=== PATIENT | female | born 1950 | race Caucasian/White ===

== ENCOUNTER 2018-03-02 20:08 | Inpatient (IN) | payer MEDICARE ==
[~2018-03-02] VITALS: Ht 167.6 cm; Wt 62.6 kg
[~2018-03-02 20:08] MED LIST: ACET325T9 PO; APIX5TAB PO; BACL10TA PO; BISA-42 PO; BUPR150T8 PO; CITA40TA12 PO; CYCL10TA2 PO; DIAZ5TAB4 PO; DICY10CA53 PO; DOCU-109 PO; ESTR0.9T PO; FLUO40CA2 PO; GABA-586 PO; HYDR-2679 PO; HYDR-2762 PO; HYDR12.53 PO; IRON200V IV; LEVO750T31 PO; LISI10TA2 PO; LUBI8CAP4 PO; MAGN400O7 PO; MELO7.5T29 PO; OMEP40CA5 PO; OXYC-323 PO; POLY17PO29 PO; Polyethylene Glycol 3350 PO; QUIN40TA16 PO; TIOT18CA IH; TOPI25TA7 PO; TRAM-48 PO; TRAM50TA PO
[2018-03-02] MEDS ORDERED: FAMOTIDINE 20 MG/2 ML VIAL IVP ONE (20:30)
[2018-03-02] MEDS ORDERED: ONDANSETRON PF 4 MG/2 ML VIAL. IV ONE (20:30)
[2018-03-02] MEDS ORDERED: IV NORMAL SALINE 1000ML BAG 1,000 ML IV ONE (20:30)
[2018-03-02] MEDS ORDERED: IOHEXOL 300 MG/ML 100ML VIAL. IV ONE (20:45)
[2018-03-02] MEDS ORDERED: fentaNYL PF VIAL 100 MCG/2 ML VIAL IV ONE (20:45)
[2018-03-02] MEDS ORDERED: IOHEXOL 240 MG/ML 50ML VIAL. PO ONE (20:45)
--- NOTE | 2018-03-02 20:49 | PHYS DOC ---
Past Medical History Past Medical History: Constipation, Fibromyalgia, Hypertension, Other Additional Past Medical Histor: chronic constipation, drug seeking behavior, CHRONIC PAIN Past Surgical History: Cholecystectomy, Hysterectomy, Other Additional Past Surgical Histo: neck Smokin Pack Per Day Alcohol Use: None Drug Use: None Adult General Chief Complaint Chief Complaint: ABDOMINAL PAIN HPI HPI Patient is a 67 year old female who presents with recurrent abdominal pain. She states she has had intermittent abdominal pain for months. She states the pain is throbbing and she rates the pain as a 9/10 currently. It is worst in the LUQ. She states the pain occasionally radiates to her back. She states nothing makes her pain better or worse. She has tried to take ibuprofen and Tylenol to help with her pain. She endorses nausea, constipation, and increased urinary frequency for the past 3-4 days. She denies diarrhea, vomiting, fever, or chills. She also notes she has not eaten anything in 4 days. She notes that she has been seen in the ED several times for her abdominal pain. Per nurse, her son had mentioned that she has recently been "showing some signs of dementia". Review of Systems Review of Systems Constitutional: Denies fever or chills Eyes: Denies change in visual acuity, redness, or eye pain HENT: Denies nasal congestion or sore throat Respiratory: Denies cough or shortness of breath Cardiovascular: Denies chest pain or palpitations GI: Notes abdominal pain, nausea, and constipation; Denies vomiting or diarrhea : Denies dysuria or hematuria Musculoskeletal: Denies back pain or joint pain Integument: Denies rash or skin lesions Neurologic: Denies headache, focal weakness or sensory changes Complete systems were reviewed and found to be within normal limits, except as documented in this note. Family History Family History Noncontributory Current Medications Current Medications Current Medications Medications (Trade) Dose Ordered Sig/Ciera Start Time Stop Time Status Last Admin Dose Admin Famotidine (Pepcid Vial) 20 mg 1X ONCE 03/02/18 20:30 03/02/18 20:31 DC 03/02/18 21:17 20 MG Fentanyl Citrate (Fentanyl 2ml Vial) 50 mcg 1X ONCE 03/02/18 20:45 03/02/18 20:46 DC 03/02/18 21:16 50 MCG Iohexol (Omnipaque 240 Mg/ml) 30 ml 1X ONCE 03/02/18 20:45 03/02/18 20:50 DC 03/02/18 20:45 30 ML Iohexol (Omnipaque 300 Mg/ml) 75 ml 1X ONCE 03/02/18 20:45 03/02/18 20:50 DC 03/02/18 20:45 75 ML Ondansetron HCl (Zofran) 4 mg 1X ONCE 03/02/18 20:30 03/02/18 20:31 DC 03/02/18 21:17 4 MG Sodium Chloride 1,000 ml @ 1,000 mls/hr 1X ONCE 03/02/18 20:30 03/02/18 21:29 DC 03/02/18 21:17 1,000 MLS/HR Tramadol Allergies Allergies Allergies Coded Allergies Type Severity Reaction Last Updated Verified Penicillins Allergy Intermediate Hives 01/14/15 Yes Physical Exam Physical Exam Constitutional: Well developed, well nourished. HENT: Normocephalic, atraumatic,oropharynx dry Eyes: Conjunctiva normal, no discharge Neck: Normal range of motion, no tenderness, supple. Cardiovascular: Heart rate regular rhythm, no murmur Lungs & Thorax: Bilateral breath sounds clear to auscultation Abdomen: Soft, tenderness to palpation diffusely, particularly in the LUQ Skin: Warm, dry, no erythema, no rash Back: No tenderness, no CVA tenderness Extremities: No tenderness, ROM intact, no edema Neurologic: Alert and oriented X 3, normal motor function, normal sensory function, no focal deficits noted Psychologic: Affect normal, judgement normal, mood normal Current Patient Data Vital Signs Vital Signs Date Time Temp Pulse Resp B/P (MAP) Pulse Ox O2 Delivery O2 Flow Rate FiO2 03/02/18 20:10 98.2 104 18 126/68 (87) 94 Room Air 98.2 Lab Values Laboratory Tests Test 03/02/18 21:00 03/02/18 23:59 White Blood Count 22.9 x10^3/uL (4.0-11.0) H Red Blood Count 4.13 x10^6/uL (3.50-5.40) Hemoglobin 11.0 g/dL (12.0-15.5) L Hematocrit 32.7 % (36.0-47.0) L Mean Corpuscular Volume 79 fL (79-100) Mean Corpuscular Hemoglobin 27 pg (25-35) Mean Corpuscular Hemoglobin Concent 34 g/dL (31-37) Red Cell Distribution Width 21.0 % (11.5-14.5) H Platelet Count 500 x10^3/uL (140-400) H Neutrophils (%) (Auto) 86 % (31-73) H Lymphocytes (%) (Auto) 7 % (24-48) L Monocytes (%) (Auto) 7 % (0-9) Eosinophils (%) (Auto) 0 % (0-3) Basophils (%) (Auto) 0 % (0-3) Neutrophils # (Auto) 19.7 x10^3uL (1.8-7.7) H Lymphocytes # (Auto) 1.6 x10^3/uL (1.0-4.8) Monocytes # (Auto) 1.6 x10^3/uL (0.0-1.1) H Eosinophils # (Auto) 0.1 x10^3/uL (0.0-0.7) Basophils # (Auto) 0.0 x10^3/uL (0.0-0.2) Segmented Neutrophils % 89 % (35-66) H Band Neutrophils % 5 % (0-9) Lymphocytes % 2 % (24-48) L Monocytes % 4 % (0-10) Hypersegmented Neutrophils Present Toxic Granulation Slight Dohle Bodies Present Platelet Estimate Increased (ADEQUATE) Poikilocytosis Slight Anisocytosis Slight Ovalocytes Few Schistocytes Few Prothrombin Time 17.7 SEC (11.7-14.0) H Prothrombin Time INR 1.5 (0.8-1.1) H PTT 39 SEC (24-38) H Sodium Level 128 mmol/L (136-145) L Potassium Level 4.3 mmol/L (3.5-5.1) Chloride Level 94 mmol/L (98-107) L Carbon Dioxide Level 21 mmol/L (21-32) Anion Gap 13 (6-14) Blood Urea Nitrogen 26 mg/dL (7-20) H Creatinine 0.9 mg/dL (0.6-1.0) Estimated GFR (Cockcroft-Gault) 62.5 BUN/Creatinine Ratio 29 (6-20) H Glucose Level 92 mg/dL (70-99) Lactic Acid Level 0.9 mmol/L (0.4-2.0) Calcium Level 10.7 mg/dL (8.5-10.1) H Magnesium Level 1.9 mg/dL (1.8-2.4) Total Bilirubin 0.3 mg/dL (0.2-1.0) Aspartate Amino Transferase (AST) 34 U/L (15-37) Alanine Aminotransferase (ALT) 47 U/L (14-59) Alkaline Phosphatase 158 U/L (46-116) H Creatine Kinase 220 U/L (26-192) H Troponin I Quantitative < 0.017 ng/mL (0.000-0.055) Total Protein 6.3 g/dL (6.4-8.2) L Albumin 3.0 g/dL (3.4-5.0) L Albumin/Globulin Ratio 0.9 (1.0-1.7) L Lipase 318 U/L (73-393) Urine Collection Type U cath Urine Color Yellow Urine Clarity Clear Urine pH 6.0 Urine Specific [place] 1.025 Urine Protein Negative mg/dL (NEG-TRACE) Urine Glucose (UA) Negative mg/dL (NEG) Urine Ketones (Stick) Negative mg/dL (NEG) Urine Blood Negative (NEG) Urine Nitrite Negative (NEG) Urine Bilirubin Negative (NEG) Urine Urobilinogen Dipstick 0.2 mg/dL (0.2 mg/dL) Urine Leukocyte Esterase Negative (NEG) Urine RBC 0 /HPF (0-2) Urine WBC Occ /HPF (0-4) Urine Squamous Epithelial Cells Few /LPF Urine Bacteria 0 /HPF (0-FEW) Laboratory Tests 03/02/18 21:00 Laboratory Tests 03/02/18 21:00 EKG EKG @ 20:40, normal sinus rhythm at 92bpm, QRS(T) contour abnormality, consistent with inferior infarct, probably old Radiology/Procedures Radiology/Procedures CT abdomen and pelvis with contrast: no acute abnormality seen Course & Med Decision Making Course & Med Decision Making Patient is a 67 year old female who presents with recurrent abdominal pain. She has been seen in the ED for similar complaints at various different times. Per [email or web address], the last CT of the abdomen/pelvis she received was in March 2015, which showed an ileus. Pertinent labs and imaging studies were obtained and reviewed (see chart for details). CT of the abdomen/pelvis with contrast was obtained today and showed no acute abnormalities. A 12-lead EKG @ 20:40 showed normal sinus rhythm at 92bpm with QRS(T) contour abnormality, consistent with inferior infarct, probably old. Several of her lab values were abnormal. She was hyponatremic, hypochloremic. BUN and calcium were high, along with her alkaline phosphatase and her creatine kinase. Her WBC was elevated at 22.9. Patient rated her abdominal pain as a 9/10. She was given one dose of Fentanyl to help control her pain. Patient will be admitted for her abdominal pain, leukocytosis, hyponatremia, failure to thrive, and dementia. Patient requiring admission for further evaluation and treatment. Discussed with Dr. Burroughs who is in agreement with admission. Discussed findings and plan with patient who acknowledges understanding and agreement. Dragon Disclaimer Dragon Disclaimer This electronic medical record was generated, in whole or in part, using a voice recognition dictation system. Departure Departure Impression: Primary Impression: Abdominal pain Additional Impressions: Leukocytosis Hyponatremia Failure to thrive Disposition: ADMITTED INPATIENT Admitting Physician: Jose De Jesus Mittal Condition: GUARDED Referrals: UNKNOWN PCP NAME (PCP) Problem Qualifiers Primary Impression: Abdominal pain Abdominal location: generalized Qualified Codes: R10.84 - Generalized abdominal pain Additional Impressions: Leukocytosis Leukocytosis type: unspecified Qualified Codes: D72.829 - Elevated white blood cell count, unspecified Failure to thrive Failure to thrive age range: in adult Qualified Codes: R62.7 - Adult failure to thrive LUIS GALVEZ DO Mar 02, 2018 20:49
[2018-03-02 21:22] LABS: BASO % 0 % (0-3); EOS # 0.1 x10^3/uL (0.0-0.7); EOS % 0 % (0-3); HEMATOCRIT 32.7 % (36.0-47.0); LYMPH # 1.6 x10^3/uL (1.0-4.8); LYMPH % 7 % (24-48); MEAN CORPUSCULAR HEMOGLOBIN 27 pg (25-35); MEAN CORPUSCULAR HGB CONC 34 g/dL (31-37); MEAN CORPUSCULAR VOLUME 79 fL (79-100); MONO # 1.6 x10^3/uL (0.0-1.1); MONO % 7 % (0-9); NEUT # 19.7 x10^3uL (1.8-7.7); NEUT % 86 % (31-73); PLATELET COUNT 500 x10^3/uL (140-400); RED BLOOD COUNT 4.13 x10^6/uL (3.50-5.40); WHITE BLOOD COUNT 22.9 x10^3/uL (4.0-11.0)
[2018-03-02 21:31] LABS: CALCIUM 10.7 mg/dL (8.5-10.1); CREATININE 0.9 mg/dL (0.6-1.0); GFR 62.5; POTASSIUM 4.3 mmol/L (3.5-5.1); PROTHROMBIN TIME PATIENT 17.7 SEC (11.7-14.0)
[2018-03-02 21:37] LABS: ALBUMIN/GLOBULIN RATIO 0.9 (1.0-1.7); MAGNESIUM 1.9 mg/dL (1.8-2.4); TOTAL BILIRUBIN 0.3 mg/dL (0.2-1.0); TOTAL PROTEIN 6.3 g/dL (6.4-8.2)
[2018-03-02 21:48] LABS: % BANDS 5 % (0-9); % MONOS 4 % (0-10); ANISOCYTOSIS SLIGHT; HYPERSEGS PRESENT; PLT ESTIMATE INCREASED (ADEQUATE); POIKILOCYTOSIS SLIGHT
[2018-03-02 21:49] LABS: OVALOCYTES FEW; SCHISTOCYTES FEW
[2018-03-02 21:51] LABS: TOXIC GRANULATION SLIGHT
[2018-03-02 21:53] LABS: % LYMPHS 2 % (24-48); % SEGS 89 % (35-66)
--- NOTE | 2018-03-02 22:20 | RAD ---
CT scan of the abdomen and pelvis with contrast 03/02/2018 CLINICAL HISTORY: Left-sided abdominal pain. TECHNIQUE: After the oral and intravenous administration of contrast, contiguous, 5 mm axial sections were obtained through the abdomen and pelvis. 75 cc of Omnipaque 300 were administered intravenously during this examination. One or more of the following individualized dose reduction techniques were utilized for this study: 1. Automated exposure control. 2. Adjustment of the mA and/or kV according to patient size. 3. Use of iterative reconstruction technique. FINDINGS: Comparison study is dated 04/03/2015. Images through the lung bases demonstrate mild cardiomegaly. Dependent subsegmental atelectasis is seen involving both lower lobes, right greater than left along with the right middle lobe. The liver, spleen, pancreas, adrenal glands and kidneys are within normal limits. Atherosclerotic calcification of the abdominal aorta is seen. The abdominal aorta tapers normally. Surgical clips are seen within the gallbladder fossa consistent with a cholecystectomy. No free fluid or free air is seen within the abdomen. There is no evidence of bowel obstruction. Images through the pelvis demonstrate the urinary bladder distended with urine. Calcifications are seen within the pelvis consistent with phleboliths. No free fluid is seen. Mild to moderate S-shaped curvature of the thoracolumbar spine is seen. Degenerative changes are seen involving the lower thoracic spine and both hips. IMPRESSION: No acute abnormality is seen. Electronically signed by: Toni De La Cruz MD (03/02/2018 10:17 PM) [employer]
[2018-03-03 00:16] LABS: BILIRUBIN,URINE NEGATIVE (NEG); CLARITY,URINE CLEAR; COLOR,URINE YELLOW; NITRITE,URINE NEGATIVE (NEG); PROTEIN,URINE NEGATIVE (NEG-TRACE); UROBILINOGEN,URINE 0.2 mg/dL (0.2 mg/dL)
[2018-03-03 00:26] LABS: BACTERIA,URINE 0 /HPF (0-FEW); RBC,URINE 0 /HPF (0-2); SQUAMOUS EPITHELIAL CELL,UR FEW /LPF; WBC,URINE OCC /HPF (0-4)
[2018-03-03] MEDS ORDERED: ONDANSETRON PF 4 MG/2 ML VIAL. IV PRN ×2 (01:00→12:30)
[2018-03-03 02:05] VITALS: BP 154/88
[2018-03-03] MEDS ORDERED: MELA3TAB2 PO (05:45)
[2018-03-03] MEDS ORDERED: HYOS0.1264 PO (05:45)
[2018-03-03] MEDS ORDERED: LUBI24CA7 PO ×2 (05:45→18:15)
[2018-03-03] MEDS ORDERED: OXYC-328 PO (05:45)
[2018-03-03] MEDS ORDERED: ACET500T68 PO (05:45)
[2018-03-03] MEDS ORDERED: LIDO700A39 TP (05:45)
[2018-03-03] MEDS ORDERED: ALBU2.5V14 NEB (05:45)
[2018-03-03] MEDS ORDERED: METO25TA4 PO (05:45)
--- NOTE | 2018-03-03 06:17 | EKG ---
[facility] [address] [place] [address] Test Date: 2018-03-02 Test Time: 20:40:56 Pat Name: MATIAS ORTEZ Department: Room: [facility] Gender: F [employer] Work[employer]: : 1950 Requested By: LUIS GALVEZ Order Number: [id number] Reading MD: Marck Lozada Measurements Intervals [place] Rate: 92 P: 63 OK: 170 QRS: 30 QRSD: 86 T: 54 QT: 350 QTc: 437 Interpretive Statements SINUS RHYTHM Electronically Signed On 03-07-2018 10:28:45 CDT by Marck Lozada
[2018-03-03 07:00] VITALS: BP_SYST 123; BP_SYST 124; BP_DIAS 62; BP_DIAS 95
[2018-03-03 11:00] VITALS: BP 120/67
[2018-03-03] MEDS ORDERED: ACETAMINOPHEN 325 MG TABLET. PO PRN (12:30)
[2018-03-03] MEDS ORDERED: ENOXAPARIN 40 MG/0.4 ML SYRINGE. SQ SCH (12:30)
[2018-03-03] MEDS ORDERED: DOCUSATE SODIUM 100 MG CAPSULE. PO PRN (12:30)
[2018-03-03] MEDS ORDERED: ALBUTEROL SULFATE 2.5 MG/3 ML NEBU. NEB PRN (12:30)
[2018-03-03] MEDS ORDERED: traMADol 50 MG TABLET PO SCH (12:30)
[2018-03-03] MEDS ORDERED: MORPHINE SULFATE 2 MG/ML VIAL. IV PRN ×2 (12:30)
[2018-03-03] MEDS ORDERED: traMADol 50 MG TABLET PO PRN (12:30)
[2018-03-03] MEDS: traMADol 50 MG TABLET PO PRN ×2 (12:44→20:43)
[2018-03-03] MEDS: IPRATRPIUM/ALBUTEROL 0.5/2.5MG 3 ML NEBU. NEB SCH ×3 (13:00→19:35)
[2018-03-03] MEDS: IV NORMAL SALINE 1000ML BAG 1,000 ML IV SCH (13:49)
[2018-03-03] MEDS: APIXABAN 5 MG TABLET. PO SCH ×2 (13:50→20:42)
[2018-03-03] MEDS: GABAPENTIN 300 MG CAPSULE. PO SCH ×2 (13:50→20:42)
[2018-03-03] MEDS: CITALOPRAM 20 MG TABLET. PO SCH (13:50)
[2018-03-03] MEDS: METOPROLOL TART IMMED RELEASE 25 MG TABLET. PO SCH (13:51)
[2018-03-03] MEDS: LISINOPRIL 10 MG TABLET PO SCH (13:51)
[2018-03-03] MEDS: LIDOCAINE (700MG/PATCH) PATCH. TD SCH (13:52)
--- NOTE | 2018-03-03 14:30 | RAD ---
CT CHEST WO CONTRAST Indication: Left upper quadrant pain, high WBC, cough, left rib cage pain with tenderness Technique: Noncontrast CT imaging was performed of the chest, multiplanar reconstruction images submitted. One or more of the following individualized dose reduction techniques were utilized for this examination: 1. Automated exposure control 2. Adjustment of the mA and/or kV according to patient size 3. Use of iterative reconstruction technique. Comparison: May 26, 2017 Findings: There is right lower lobe infiltrate near the lung base, small right pleural effusion, also some patchy minimal infiltrate of the right middle lobe. There is a subtle focus of groundglass density of the left upper lobe. There is no left pleural effusion. There is no pneumothorax. There is now very minimal pericardial fluid. There are again multiple old bilateral rib fractures, some of which are not united. There is no new significant lymphadenopathy of the chest. There is coronary calcification. Ascending thoracic aorta is again slightly ectatic about 3.7 cm. There is emphysema. Thoracic vertebral body stature is preserved. There is anterior fusion hardware of the inferior cervical spine. IMPRESSION: 1. There is right lower lobe infiltrate at the lung base and small right pleural effusion, also some patchy minimal right middle lobe infiltrate and subtle groundglass infiltrate of the left upper lobe. 2. 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 3. There is emphysema. 4. There is coronary calcification. Electronically signed by: Artie Galo MD (03/03/2018 2:26 PM) [id number]
[2018-03-03 15:00] VITALS: BP 118/74
--- NOTE | 2018-03-03 15:08 | PDOC1 ---
History and Physical Date of Admission Date of Admission 03/03/18 Identification/Chief Complaint Chief Complaint abd pain, /rib cage pain Source Source: Chart review, Patient History of Present Illness History of Present Illness HPI HPI Patient is a 67 year old female who presents with recurrent abdominal pain for a few weeks. She is very drowsy, poor historian. nurse told me that she lost her 2 months ago and in pain and low po intake. Pt said she fell a few times before, but cannot tell me how and closed her eyes again. She said came to ER last week, but i cannot find the records. She pointed to the left flank for pain, + tender at rib cage. She took tramadol at home for pain. as per ERP, She endorses nausea, constipation, and increased urinary frequency for the past 3-4 days. She denies diarrhea, vomiting, fever, or chills. She also notes she has not eaten anything in 4 days. Per nurse, her son had mentioned that she has recently been "showing some signs of dementia". she is a smoker, cough in front of me, but said the cough is normal to her. no home o2. high wbc, low Na in ER. abd CT neg. Past Medical History Cardiovascular: HTN Pulmonary: COPD CENTRAL NERVOUS SYSTEM: Migraine GI: Constipation, Irritable bowel disease, Other Heme/Onc: Anemia NOS Psych: Anxiety, Depression Rheumatologic: Fibromyalgia Renal/: Other Endocrine: No pertinent hx Past Surgical History Past Surgical History: Cholecystectomy, Hysterectomy Family History Family History: Cancer, Coronary Artery Disease, Hypertension Social History Smoke: <1 pack per day ALCOHOL: none Drugs: None Current Problem List Problem List Problems Medical Problems: (1) Abdominal pain Status: Acute (2) Failure to thrive Status: Acute (3) Hyponatremia Status: Acute (4) Leukocytosis Status: Acute Current Medications Current Medications Current Medications Medications (Trade) Dose Ordered Sig/Ciera Start Time Stop Time Status Last Admin Dose Admin Acetaminophen (Tylenol) 650 mg PRN Q6HRS PRN 03/03/18 12:30 UNV Albuterol Sulfate (Ventolin Neb Soln) 2.5 mg PRN Q2HR PRN 03/03/18 12:30 Albuterol/ Ipratropium (Duoneb) 3 ml RTQID 03/03/18 13:00 Apixaban (Eliquis) 5 mg BID 03/03/18 13:00 03/03/18 13:50 5 MG Citalopram Hydrobromide (CeleXA) 40 mg DAILY 03/03/18 13:00 03/03/18 13:50 40 MG Docusate Sodium (Colace) 100 mg PRN DAILY PRN 03/03/18 12:30 Enoxaparin Sodium (Lovenox 40mg Syringe) 40 mg Q24H 03/03/18 12:30 UNV Famotidine (Pepcid Vial) 20 mg 1X ONCE 03/02/18 20:30 03/02/18 20:31 DC 03/02/18 21:17 20 MG Fentanyl Citrate (Fentanyl 2ml Vial) 50 mcg 1X ONCE 03/02/18 20:45 03/02/18 20:46 DC 03/02/18 21:16 50 MCG Gabapentin (Neurontin) 300 mg BID 03/03/18 13:00 03/03/18 13:50 300 MG Guaifenesin (Mucinex) 600 mg BID 03/03/18 13:00 03/03/18 13:50 600 MG Iohexol (Omnipaque 240 Mg/ml) 30 ml 1X ONCE 03/02/18 20:45 03/02/18 20:50 DC 03/02/18 20:45 30 ML Iohexol (Omnipaque 300 Mg/ml) 75 ml 1X ONCE 03/02/18 20:45 03/02/18 20:50 DC 03/02/18 20:45 75 ML Lidocaine (Lidoderm) 1 patch DAILY 03/03/18 13:00 03/03/18 13:52 1 PATCH Lisinopril (Prinivil) 10 mg DAILY 03/03/18 13:00 03/03/18 13:51 10 MG Lubiprostone (Amitiza) 24 mcg BIDWMEALS 03/03/18 17:00 Metoprolol Tartrate (Lopressor) 25 mg DAILY 03/03/18 13:00 03/03/18 13:51 25 MG Mirtazapine (Remeron) 7.5 mg QHS 03/03/18 21:00 Miscellaneous (Lidoderm Patch Removal) 1 ea QHS 03/03/18 21:00 Morphine Sulfate (Morphine Sulfate) 2 mg PRN Q2HR PRN 03/03/18 12:30 UNV Non-Formulary Medication (Melatonin ) 1 tab QHS 03/03/18 21:00 UNV Ondansetron HCl (Zofran) 4 mg PRN Q6HRS PRN 03/03/18 12:30 UNV Oxycodone/ Acetaminophen (Percocet 10/325) 1 tab BID PRN 03/03/18 12:30 Pantoprazole Sodium (Protonix) 40 mg BIDAC 03/03/18 16:30 Sodium Chloride 1,000 ml @ 100 mls/hr Q10H 03/03/18 13:00 03/03/18 13:49 100 MLS/HR Tramadol HCl (Ultram) 50 mg PRN Q6HRS PRN 03/03/18 12:30 03/03/18 12:44 50 MG Allergies Allergies Allergies Coded Allergies Type Severity Reaction Last Updated Verified Penicillins Allergy Intermediate Hives 01/14/15 Yes ROS Review of System CONSTITUTIONAL: No fever or chills EYES: No recent changes SKIN: No rash or itching CARDIOVASCULAR: No chest pain, syncope, palpitations, or edema RESPIRATORY: No SOB or cough GASTROINTESTINAL: No nausea, vomiting or abdominal pain NEUROLOGICAL: No headaches or weakness ENDOCRINE: No cold or heat intolerance GENITOURINARY: No urgency or frequency of urination MUSCULOSKELETAL: No back pain or joint pain LYMPHATICS: No enlarged lymph nodes PSYCHIATRIC: No anxiety or depression Physical Exam Physical Exam GEN.: No apparent distress. Alert and oriented x2, drowsy. HEENT: Head is normocephalic, atraumatic NECK: Supple. LUNGS: Clear to auscultation. left rib cage + tenderness. HEART: RRR, S1, S2 present. Peripheral pulses intact ABDOMEN: Soft, nontender. Positive bowel sounds. EXTREMITIES: Without any cyanosis. NEUROLOGIC: Normal speech, normal tone PSYCHIATRIC: Normal affect, normal mood. SKIN: No ulcerations Vitals Vitals Vital Signs Date Time Temp Pulse Resp B/P (MAP) Pulse Ox O2 Delivery O2 Flow Rate FiO2 03/03/18 13:52 18 Nasal Cannula 3.0 03/03/18 13:51 115 120/67 03/03/18 11:00 97.8 94 97.8 Labs Labs Laboratory Tests Test 03/02/18 21:00 03/02/18 23:59 White Blood Count 22.9 x10^3/uL (4.0-11.0) Red Blood Count 4.13 x10^6/uL (3.50-5.40) Hemoglobin 11.0 g/dL (12.0-15.5) Hematocrit 32.7 % (36.0-47.0) Mean Corpuscular Volume 79 fL (79-100) Mean Corpuscular Hemoglobin 27 pg (25-35) Mean Corpuscular Hemoglobin Concent 34 g/dL (31-37) Red Cell Distribution Width 21.0 % (11.5-14.5) Platelet Count 500 x10^3/uL (140-400) Neutrophils (%) (Auto) 86 % (31-73) Lymphocytes (%) (Auto) 7 % (24-48) Monocytes (%) (Auto) 7 % (0-9) Eosinophils (%) (Auto) 0 % (0-3) Basophils (%) (Auto) 0 % (0-3) Neutrophils # (Auto) 19.7 x10^3uL (1.8-7.7) Lymphocytes # (Auto) 1.6 x10^3/uL (1.0-4.8) Monocytes # (Auto) 1.6 x10^3/uL (0.0-1.1) Eosinophils # (Auto) 0.1 x10^3/uL (0.0-0.7) Basophils # (Auto) 0.0 x10^3/uL (0.0-0.2) Segmented Neutrophils % 89 % (35-66) Band Neutrophils % 5 % (0-9) Lymphocytes % 2 % (24-48) Monocytes % 4 % (0-10) Hypersegmented Neutrophils Present Toxic Granulation Slight Dohle Bodies Present Platelet Estimate Increased (ADEQUATE) Poikilocytosis Slight Anisocytosis Slight Ovalocytes Few Schistocytes Few Prothrombin Time 17.7 SEC (11.7-14.0) Prothromb Time International Ratio 1.5 (0.8-1.1) Activated Partial Thromboplast Time 39 SEC (24-38) Sodium Level 128 mmol/L (136-145) Potassium Level 4.3 mmol/L (3.5-5.1) Chloride Level 94 mmol/L (98-107) Carbon Dioxide Level 21 mmol/L (21-32) Anion Gap 13 (6-14) Blood Urea Nitrogen 26 mg/dL (7-20) Creatinine 0.9 mg/dL (0.6-1.0) Estimated GFR (Cockcroft-Gault) 62.5 BUN/Creatinine Ratio 29 (6-20) Glucose Level 92 mg/dL (70-99) Lactic Acid Level 0.9 mmol/L (0.4-2.0) Calcium Level 10.7 mg/dL (8.5-10.1) Magnesium Level 1.9 mg/dL (1.8-2.4) Total Bilirubin 0.3 mg/dL (0.2-1.0) Aspartate Amino Transf (AST/SGOT) 34 U/L (15-37) Alanine Aminotransferase (ALT/SGPT) 47 U/L (14-59) Alkaline Phosphatase 158 U/L (46-116) Creatine Kinase 220 U/L (26-192) Troponin I Quantitative < 0.017 ng/mL (0.000-0.055) Total Protein 6.3 g/dL (6.4-8.2) Albumin 3.0 g/dL (3.4-5.0) Albumin/Globulin Ratio 0.9 (1.0-1.7) Lipase 318 U/L (73-393) Urine Collection Type U cath Urine Color Yellow Urine Clarity Clear Urine pH 6.0 Urine Specific [place] 1.025 Urine Protein Negative mg/dL (NEG-TRACE) Urine Glucose (UA) Negative mg/dL (NEG) Urine Ketones (Stick) Negative mg/dL (NEG) Urine Blood Negative (NEG) Urine Nitrite Negative (NEG) Urine Bilirubin Negative (NEG) Urine Urobilinogen Dipstick 0.2 mg/dL (0.2 mg/dL) Urine Leukocyte Esterase Negative (NEG) Urine RBC 0 /HPF (0-2) Urine WBC Occ /HPF (0-4) Urine Squamous Epithelial Cells Few /LPF Urine Bacteria 0 /HPF (0-FEW) Laboratory Tests Test 03/02/18 21:00 03/02/18 23:59 White Blood Count 22.9 x10^3/uL (4.0-11.0) Red Blood Count 4.13 x10^6/uL (3.50-5.40) Hemoglobin 11.0 g/dL (12.0-15.5) Hematocrit 32.7 % (36.0-47.0) Mean Corpuscular Volume 79 fL (79-100) Mean Corpuscular Hemoglobin 27 pg (25-35) Mean Corpuscular Hemoglobin Concent 34 g/dL (31-37) Red Cell Distribution Width 21.0 % (11.5-14.5) Platelet Count 500 x10^3/uL (140-400) Neutrophils (%) (Auto) 86 % (31-73) Lymphocytes (%) (Auto) 7 % (24-48) Monocytes (%) (Auto) 7 % (0-9) Eosinophils (%) (Auto) 0 % (0-3) Basophils (%) (Auto) 0 % (0-3) Neutrophils # (Auto) 19.7 x10^3uL (1.8-7.7) Lymphocytes # (Auto) 1.6 x10^3/uL (1.0-4.8) Monocytes # (Auto) 1.6 x10^3/uL (0.0-1.1) Eosinophils # (Auto) 0.1 x10^3/uL (0.0-0.7) Basophils # (Auto) 0.0 x10^3/uL (0.0-0.2) Segmented Neutrophils % 89 % (35-66) Band Neutrophils % 5 % (0-9) Lymphocytes % 2 % (24-48) Monocytes % 4 % (0-10) Hypersegmented Neutrophils Present Toxic Granulation Slight Dohle Bodies Present Platelet Estimate Increased (ADEQUATE) Poikilocytosis Slight Anisocytosis Slight Ovalocytes Few Schistocytes Few Prothrombin Time 17.7 SEC (11.7-14.0) Prothromb Time International Ratio 1.5 (0.8-1.1) Activated Partial Thromboplast Time 39 SEC (24-38) Sodium Level 128 mmol/L (136-145) Potassium Level 4.3 mmol/L (3.5-5.1) Chloride Level 94 mmol/L (98-107) Carbon Dioxide Level 21 mmol/L (21-32) Anion Gap 13 (6-14) Blood Urea Nitrogen 26 mg/dL (7-20) Creatinine 0.9 mg/dL (0.6-1.0) Estimated GFR (Cockcroft-Gault) 62.5 BUN/Creatinine Ratio 29 (6-20) Glucose Level 92 mg/dL (70-99) Lactic Acid Level 0.9 mmol/L (0.4-2.0) Calcium Level 10.7 mg/dL (8.5-10.1) Magnesium Level 1.9 mg/dL (1.8-2.4) Total Bilirubin 0.3 mg/dL (0.2-1.0) Aspartate Amino Transf (AST/SGOT) 34 U/L (15-37) Alanine Aminotransferase (ALT/SGPT) 47 U/L (14-59) Alkaline Phosphatase 158 U/L (46-116) Creatine Kinase 220 U/L (26-192) Troponin I Quantitative < 0.017 ng/mL (0.000-0.055) Total Protein 6.3 g/dL (6.4-8.2) Albumin 3.0 g/dL (3.4-5.0) Albumin/Globulin Ratio 0.9 (1.0-1.7) Lipase 318 U/L (73-393) Urine Collection Type U cath Urine Color Yellow Urine Clarity Clear Urine pH 6.0 Urine Specific [place] 1.025 Urine Protein Negative mg/dL (NEG-TRACE) Urine Glucose (UA) Negative mg/dL (NEG) Urine Ketones (Stick) Negative mg/dL (NEG) Urine Blood Negative (NEG) Urine Nitrite Negative (NEG) Urine Bilirubin Negative (NEG) Urine Urobilinogen Dipstick 0.2 mg/dL (0.2 mg/dL) Urine Leukocyte Esterase Negative (NEG) Urine RBC 0 /HPF (0-2) Urine WBC Occ /HPF (0-4) Urine Squamous Epithelial Cells Few /LPF Urine Bacteria 0 /HPF (0-FEW) VTE Prophylaxis Ordered VTE Prophylaxis Devices: Yes VTE Pharmacological Prophylaxi: No Assessment/Plan Assessment/Plan left rib cage pain with old fx likely AMS, metabolic encephalopathy likely unsteady gait with frequent fall chronic constipation cough hyponatremia failure to thrive leukocytosis POSsible CAP SIRS fibromyalgia htn Pfib on eliquis h/o drug seeking behavior chronic pain on tramadol mild malnutrition tobaccoism plan: pulm consult check Chest ct showed some infiltrate and unhealed fx cont some home meds, abd CT neg. pain control bcx add levaquin ivf nutrition consult PTOT cont eliquis for now duoneb, cough meds sw FOR POSSIBLE rehab [place] as needed JUNG CONNELL MD Mar 03, 2018 15:08
--- NOTE | 2018-03-03 16:08 | CONS ---
DATE OF CONSULTATION: PULMONARY CONSULTATION ATTENDING PHYSICIAN: Dr. Burroughs. REASON FOR CONSULTATION: Abnormal CT chest, pneumonia. HISTORY OF PRESENT ILLNESS: The patient is a 67-year-old female who has been a smoker for 30 years. She says she is normally on oxygen at 3.5 liters at home. She was brought into the hospital. She is somewhat drowsy. She had some abdominal pain and tenderness at the right ribcage. There was some nausea, constipation and increased urinary frequency for the last 3-4 days. There is no diarrhea, no vomiting, no fever, no chills. The patient has not been eating well. She underwent imaging studies and a CT chest was reviewed by me. The patient has evidence of right lower lobe pneumonia and a small tiny right pleural effusion. There are some patchy infiltrates in the right middle lobe as well and faint ground glass infiltrates in the left upper lobe. There are old bilateral posterior fractures. I have been asked to see her for further evaluation. She is currently requiring 2.5 liters of oxygen. PAST MEDICAL HISTORY: Significant for history of hypertension, history of COPD, history of chronic respiratory failure on home oxygen at 3.5 liters, history of irritable bowel syndrome, anemia, depression, fibromyalgia. PAST SURGICAL HISTORY: Cholecystectomy and hysterectomy. FAMILY HISTORY: Cancer, coronary artery disease and hypertension. SOCIAL HISTORY: Smoker for last 30 years, less than 1 pack per day. ALLERGIES: PENICILLIN. CURRENT MEDICATIONS: Reviewed as listed in the [facility]. She is not on any antibiotics. REVIEW OF SYSTEMS: Twelve-point systems obtained. Pertinent positives discussed in my history of present illness, otherwise noncontributory. All systems that were negative were reviewed as well. PHYSICAL EXAMINATION: GENERAL: She is lethargic, but arousable and answers questions. VITAL SIGNS: Blood pressure stable, pulse ox 94% on 3 liters. She is afebrile. HEENT: Sclerae nonicteric. NECK: Supple. LUNGS: Diminished breath sounds. CARDIOVASCULAR: Regular rate. ABDOMEN: Soft, mildly tender. EXTREMITIES: With no pitting edema. LABORATORY DATA: Reviewed. White cell count 22.9, hemoglobin 11.0, platelets are 500. BUN 26 and creatinine 0.9. Albumin 3.0. INR 1.5. IMPRESSION: 1. Abnormal CT chest consistent with pneumonia. 2. Cough with yellow sputum production and CT chest findings compatible with pneumonia, suspect gram-negative. 3. Underlying chronic obstructive pulmonary disease, which is with chronic hypoxic respiratory failure, on home oxygen at 3.5 liters, was currently on 2.5 liters. 4. Abdominal pain per PCP. RECOMMENDATIONS: 1. We will continue with Levaquin. 2. Continue bronchodilators. 3. Continue present oxygen. 4. Anticoagulation with Eliquis per PCP. 5. We will obtain chest x-ray in few days just to see clinical and radiographic improvement. BATOOL BABCOCK MD DR: ABIGAIL/miya JOB#: [id number] / [id number]
[2018-03-03] MEDS: PANTOPRAZOLE 40 MG TABLET.DR. PO SCH (16:25)
[2018-03-03] MEDS: LUBIPROSTONE 8 MCG CAPSULE PO SCH (17:46)
[2018-03-03] MEDS: oxyCODONE/APAP 10/325 1 TAB TABLET PO PRN (17:47)
[2018-03-03] MEDS ORDERED: MAG360OR24 PO (18:12)
[2018-03-03] MEDS ORDERED: CYAN10002 IM (18:15)
[2018-03-03] MEDS ORDERED: DILT360C PO (18:15)
[2018-03-03] MEDS ORDERED: CYAN10005 PO (18:15)
[2018-03-03] MEDS ORDERED: MIRT15TA3 PO (18:18)
[2018-03-03] MEDS ORDERED: MAGN2400 PO (18:18)
[2018-03-03] MEDS ORDERED: SENN8.6T99 PO (18:18)
[2018-03-03 19:00] VITALS: BP 118/72
[2018-03-03] MEDS: LACTOBACILLUS RHAMNOSUS GG 1 CAPSULE. PO SCH (20:42)
[2018-03-03] MEDS: MIRTAZAPINE 7.5 MG TABLET. PO SCH (20:42)
[2018-03-03] MEDS: PATCH REMOVAL. MC SCH (21:00)
[2018-03-03] MEDS ORDERED: NON FORMULARY ITEM (Melatonin 1 TAB) PO SCH (21:00)
[2018-03-03 23:00] VITALS: BP 136/72
[2018-03-04 03:00] VITALS: BP 149/59
[2018-03-04] MEDS: IV NORMAL SALINE 1000ML BAG 1,000 ML IV SCH ×3 (03:42→19:00)
[2018-03-04] MEDS: oxyCODONE/APAP 10/325 1 TAB TABLET PO PRN ×4 (03:43→21:01)
[2018-03-04 05:07] LABS: BASO % 0 % (0-3); EOS # 0.1 x10^3/uL (0.0-0.7); EOS % 1 % (0-3); HEMATOCRIT 28.7 % (36.0-47.0); HEMOGLOBIN 9.6 g/dL (12.0-15.5); LYMPH # 2.1 x10^3/uL (1.0-4.8); LYMPH % 10 % (24-48); MEAN CORPUSCULAR HEMOGLOBIN 26 pg (25-35); MEAN CORPUSCULAR HGB CONC 33 g/dL (31-37); MEAN CORPUSCULAR VOLUME 79 fL (79-100); MONO # 2.2 x10^3/uL (0.0-1.1); MONO % 10 % (0-9); NEUT # 17.5 x10^3uL (1.8-7.7); NEUT % 79 % (31-73); PLATELET COUNT 464 x10^3/uL (140-400); RED BLOOD COUNT 3.63 x10^6/uL (3.50-5.40); RED CELL DISTRIBUTION WIDTH 20.9 % (11.5-14.5)
[2018-03-04 05:56] LABS: CALCIUM 8.7 mg/dL (8.5-10.1); CREATININE 0.5 mg/dL (0.6-1.0); GFR 123.1; POTASSIUM 3.6 mmol/L (3.5-5.1)
[2018-03-04] MEDS: PANTOPRAZOLE 40 MG TABLET.DR. PO SCH ×2 (06:35→16:33)
[2018-03-04 07:00] VITALS: BP 141/71
[2018-03-04] MEDS: IPRATRPIUM/ALBUTEROL 0.5/2.5MG 3 ML NEBU. NEB SCH ×4 (07:09→20:09)
[2018-03-04] MEDS ORDERED: PHENOL ORAL SPRAY 177ML BOTTLE. PO PRN (09:15)
--- NOTE | 2018-03-04 09:24 | PDOC ---
PULMONARY PROGRESS NOTES Subjective more awake. c/o cough Vitals Vital Signs Date Time Temp Pulse Resp B/P (MAP) Pulse Ox O2 Delivery O2 Flow Rate FiO2 03/04/18 07:09 90 Nasal Cannula 2.0 03/04/18 07:00 98.8 106 16 141/71 (94) 98.8 General: Alert Lungs: Clear Cardiovascular: S1 Abdomen: Soft Neuro Exam: Alert Extremities: No Edema Skin: Warm Labs Laboratory Tests Test 03/02/18 21:00 03/02/18 23:59 03/04/18 04:05 White Blood Count 22.9 x10^3/uL (4.0-11.0) 22.0 x10^3/uL (4.0-11.0) Red Blood Count 4.13 x10^6/uL (3.50-5.40) 3.63 x10^6/uL (3.50-5.40) Hemoglobin 11.0 g/dL (12.0-15.5) 9.6 g/dL (12.0-15.5) Hematocrit 32.7 % (36.0-47.0) 28.7 % (36.0-47.0) Mean Corpuscular Volume 79 fL (79-100) 79 fL (79-100) Mean Corpuscular Hemoglobin 27 pg (25-35) 26 pg (25-35) Mean Corpuscular Hemoglobin Concent 34 g/dL (31-37) 33 g/dL (31-37) Red Cell Distribution Width 21.0 % (11.5-14.5) 20.9 % (11.5-14.5) Platelet Count 500 x10^3/uL (140-400) 464 x10^3/uL (140-400) Neutrophils (%) (Auto) 86 % (31-73) 79 % (31-73) Lymphocytes (%) (Auto) 7 % (24-48) 10 % (24-48) Monocytes (%) (Auto) 7 % (0-9) 10 % (0-9) Eosinophils (%) (Auto) 0 % (0-3) 1 % (0-3) Basophils (%) (Auto) 0 % (0-3) 0 % (0-3) Neutrophils # (Auto) 19.7 x10^3uL (1.8-7.7) 17.5 x10^3uL (1.8-7.7) Lymphocytes # (Auto) 1.6 x10^3/uL (1.0-4.8) 2.1 x10^3/uL (1.0-4.8) Monocytes # (Auto) 1.6 x10^3/uL (0.0-1.1) 2.2 x10^3/uL (0.0-1.1) Eosinophils # (Auto) 0.1 x10^3/uL (0.0-0.7) 0.1 x10^3/uL (0.0-0.7) Basophils # (Auto) 0.0 x10^3/uL (0.0-0.2) 0.0 x10^3/uL (0.0-0.2) Segmented Neutrophils % 89 % (35-66) Band Neutrophils % 5 % (0-9) Lymphocytes % 2 % (24-48) Monocytes % 4 % (0-10) Hypersegmented Neutrophils Present Toxic Granulation Slight Dohle Bodies Present Platelet Estimate Increased (ADEQUATE) Poikilocytosis Slight Anisocytosis Slight Ovalocytes Few Schistocytes Few Prothrombin Time 17.7 SEC (11.7-14.0) Prothromb Time International Ratio 1.5 (0.8-1.1) Activated Partial Thromboplast Time 39 SEC (24-38) Sodium Level 128 mmol/L (136-145) 129 mmol/L (136-145) Potassium Level 4.3 mmol/L (3.5-5.1) 3.6 mmol/L (3.5-5.1) Chloride Level 94 mmol/L (98-107) 96 mmol/L (98-107) Carbon Dioxide Level 21 mmol/L (21-32) 23 mmol/L (21-32) Anion Gap 13 (6-14) 10 (6-14) Blood Urea Nitrogen 26 mg/dL (7-20) 6 mg/dL (7-20) Creatinine 0.9 mg/dL (0.6-1.0) 0.5 mg/dL (0.6-1.0) Estimated GFR (Cockcroft-Gault) 62.5 123.1 BUN/Creatinine Ratio 29 (6-20) Glucose Level 92 mg/dL (70-99) 95 mg/dL (70-99) Lactic Acid Level 0.9 mmol/L (0.4-2.0) Calcium Level 10.7 mg/dL (8.5-10.1) 8.7 mg/dL (8.5-10.1) Magnesium Level 1.9 mg/dL (1.8-2.4) Total Bilirubin 0.3 mg/dL (0.2-1.0) Aspartate Amino Transf (AST/SGOT) 34 U/L (15-37) Alanine Aminotransferase (ALT/SGPT) 47 U/L (14-59) Alkaline Phosphatase 158 U/L (46-116) Creatine Kinase 220 U/L (26-192) Troponin I Quantitative < 0.017 ng/mL (0.000-0.055) Total Protein 6.3 g/dL (6.4-8.2) Albumin 3.0 g/dL (3.4-5.0) Albumin/Globulin Ratio 0.9 (1.0-1.7) Lipase 318 U/L (73-393) Urine Collection Type U cath Urine Color Yellow Urine Clarity Clear Urine pH 6.0 Urine Specific Sidney 1.025 Urine Protein Negative mg/dL (NEG-TRACE) Urine Glucose (UA) Negative mg/dL (NEG) Urine Ketones (Stick) Negative mg/dL (NEG) Urine Blood Negative (NEG) Urine Nitrite Negative (NEG) Urine Bilirubin Negative (NEG) Urine Urobilinogen Dipstick 0.2 mg/dL (0.2 mg/dL) Urine Leukocyte Esterase Negative (NEG) Urine RBC 0 /HPF (0-2) Urine WBC Occ /HPF (0-4) Urine Squamous Epithelial Cells Few /LPF Urine Bacteria 0 /HPF (0-FEW) Laboratory Tests Test 03/04/18 04:05 White Blood Count 22.0 x10^3/uL (4.0-11.0) Red Blood Count 3.63 x10^6/uL (3.50-5.40) Hemoglobin 9.6 g/dL (12.0-15.5) Hematocrit 28.7 % (36.0-47.0) Mean Corpuscular Volume 79 fL (79-100) Mean Corpuscular Hemoglobin 26 pg (25-35) Mean Corpuscular Hemoglobin Concent 33 g/dL (31-37) Red Cell Distribution Width 20.9 % (11.5-14.5) Platelet Count 464 x10^3/uL (140-400) Neutrophils (%) (Auto) 79 % (31-73) Lymphocytes (%) (Auto) 10 % (24-48) Monocytes (%) (Auto) 10 % (0-9) Eosinophils (%) (Auto) 1 % (0-3) Basophils (%) (Auto) 0 % (0-3) Neutrophils # (Auto) 17.5 x10^3uL (1.8-7.7) Lymphocytes # (Auto) 2.1 x10^3/uL (1.0-4.8) Monocytes # (Auto) 2.2 x10^3/uL (0.0-1.1) Eosinophils # (Auto) 0.1 x10^3/uL (0.0-0.7) Basophils # (Auto) 0.0 x10^3/uL (0.0-0.2) Sodium Level 129 mmol/L (136-145) Potassium Level 3.6 mmol/L (3.5-5.1) Chloride Level 96 mmol/L (98-107) Carbon Dioxide Level 23 mmol/L (21-32) Anion Gap 10 (6-14) Blood Urea Nitrogen 6 mg/dL (7-20) Creatinine 0.5 mg/dL (0.6-1.0) Estimated GFR (Cockcroft-Gault) 123.1 Glucose Level 95 mg/dL (70-99) Calcium Level 8.7 mg/dL (8.5-10.1) Medications Active Scripts Medications Dose Route/Sig Max Daily Dose Days Date Category Dose Instructions Senokot (Sennosides) 8.6 Mg Tablet 1 Tab PO PRN BID 03/03/18 Reported Mirtazapine 15 Mg Tablet 7.5 Mg PO QHS 03/03/18 Reported Milk Of Magnesia (Magnesium Hydroxide) 2,400 Mg/10 Ml Oral.susp 2,400 Mg PO 03/03/18 Reported Cardizem Cd (Diltiazem Hcl) 360 Mg Cap.er.24h 300 Mg PO BID 03/03/18 Reported Cyanocobalamin Injection (Cyanocobalamin (Vitamin B-12)) 1,000 Mcg/1 Ml Vial 1 Ml IM QMONTH 03/03/18 Reported Vitamin B-12 (Cyanocobalamin (Vitamin B-12)) 1,000 Mcg Tablet 1 Tab PO DAILY 03/03/18 Reported Alum-Mag Hydroxide-Simeth Liq (Mag Hydrox/Al Hydrox/Simeth) 360 Ml Oral.susp 360 Ml PO 03/03/18 Reported Albuterol Sulfate Conc Neb Soln (Albuterol Sulfate) 2.5 Mg/0.5 Ml Vial.neb 1 Vial NEB Q6HRS 03/03/18 Reported Metoprolol Tartrate 25 Mg Tablet 1 Tab PO DAILY 03/03/18 Reported Melatonin 3 Mg Tablet 1 Tab PO QHS 03/03/18 Reported Lidocaine 1 Each Adh..patch 1 Each TP 03/03/18 Reported Levsin (Hyoscyamine Sulfate) 0.125 Mg Tablet 1 Tab PO TID PRN 03/03/18 Reported Percocet 10-325 Mg Tablet (Oxycodone/Acetaminophen) 1 Each Tablet 1 Tab PO BID PRN 03/03/18 Reported Amitiza (Lubiprostone) 24 Mcg Capsule 1 Cap PO BID 03/03/18 Reported Acetaminophen 500 Mg Tablet 2 Tab PO Q6HRS 03/03/18 Reported Lisinopril 10 Mg Tablet 1 Tab PO DAILY 05/30/17 Rx Eliquis (Apixaban) 5 Mg Tablet 5 Mg PO BID 05/26/17 Reported Gabapentin 300 Mg Capsule 300 Mg PO BID 05/26/17 Reported Tramadol Hcl 50 Mg Tablet 50 Tab PO PRN Q6HRS 02/09/15 Rx Celexa (Citalopram Hydrobromide) 40 Mg Tablet 40 Mg PO DAILY 09/26/14 Rx Omeprazole 40 Mg Capsule.dr 40 Mg PO BID 02/04/14 Reported LAST DOSE GIVEN: DATE: today we use Pantaprozole (Protonix) TIME: 8:30 AM NEXT DOSE DUE: DATE: tomorrow morning Impression . 1. Abnormal CT chest consistent with pneumonia. 2. Cough with yellow sputum production and CT chest findings compatible with pneumonia, suspect gram-negative. 3. Underlying chronic obstructive pulmonary disease, which is with chronic hypoxic respiratory failure, on home oxygen at 3.5 liters, was currently on 2.5 liters. 4. Abdominal pain per PCP. Plan . 1. We will continue with Levaquin. 2. Continue bronchodilators. 3. Continue present oxygen. 4. Anticoagulation with Eliquis per PCP. 5. We will obtain chest x-ray in few days just to see clinical and radiographic improvement. BATOOL BABCOCK MD Mar 04, 2018 09:24
[2018-03-04] MEDS: LUBIPROSTONE 8 MCG CAPSULE PO SCH ×2 (10:57→17:00)
[2018-03-04] MEDS: BENZOCAINE/MENTHOL LOZENGE. PO PRN ×3 (10:57→20:59)
[2018-03-04] MEDS: LISINOPRIL 10 MG TABLET PO SCH (10:58)
[2018-03-04] MEDS: LACTOBACILLUS RHAMNOSUS GG 1 CAPSULE. PO SCH ×2 (10:58→21:00)
[2018-03-04] MEDS: APIXABAN 5 MG TABLET. PO SCH ×2 (10:58→21:00)
[2018-03-04] MEDS: GABAPENTIN 300 MG CAPSULE. PO SCH ×2 (10:59→20:59)
[2018-03-04] MEDS: METOPROLOL TART IMMED RELEASE 25 MG TABLET. PO SCH (10:59)
[2018-03-04 11:00] VITALS: BP 122/79
[2018-03-04] MEDS: CITALOPRAM 20 MG TABLET. PO SCH (11:00)
[2018-03-04] MEDS: LIDOCAINE (700MG/PATCH) PATCH. TD SCH (11:01)
[2018-03-04] MEDS ORDERED: DILT360C PO (12:29)
--- NOTE | 2018-03-04 13:09 | PDOC ---
PROGRESS NOTES Chief Complaint Chief Complaint left rib cage pain with old fx likely AMS, metabolic encephalopathy likely CAP unsteady gait with frequent fall chronic constipation cough hyponatremia failure to thrive leukocytosis sepsis fibromyalgia htn Pfib on eliquis h/o drug seeking behavior chronic pain on tramadol mild malnutrition tobaccoism plan: pulm consulted check Chest ct showed some infiltrate and unhealed fx cont some home meds, abd CT neg. pain control bcx add levaquin ivf nutrition consult PTOT cont eliquis for now, resume metoprolol, cardizem. asked nurse to check the dose duoneb, cough meds sw FOR POSSIBLE rehab NS as needed History of Present Illness History of Present Illness ROS: no fever, chills, sob or chest pain COUGH A lot, c/o left rib cage pain with tenderness slightly better, but still looks very weak as per nurse, it could be pt's baseline wbc 22 Na 129 Vitals Vitals Vital Signs Date Time Temp Pulse Resp B/P (MAP) Pulse Ox O2 Delivery O2 Flow Rate FiO2 03/04/18 12:41 20 Nasal Cannula 3.0 03/04/18 12:40 97 122/79 03/04/18 11:00 99.2 99.2 03/04/18 07:09 90 Physical Exam Physical Exam left rib cage + tenderness General: Alert, Oriented X3, Cooperative Heart: Regular rate, Normal S1, Normal S2 Lungs: Other (bl moderate decreased bs) Abdomen: Normal bowel sounds, Soft Extremities: No clubbing, No cyanosis Skin: No rashes Labs LABS Laboratory Tests Test 03/04/18 04:05 White Blood Count 22.0 x10^3/uL (4.0-11.0) Red Blood Count 3.63 x10^6/uL (3.50-5.40) Hemoglobin 9.6 g/dL (12.0-15.5) Hematocrit 28.7 % (36.0-47.0) Mean Corpuscular Volume 79 fL (79-100) Mean Corpuscular Hemoglobin 26 pg (25-35) Mean Corpuscular Hemoglobin Concent 33 g/dL (31-37) Red Cell Distribution Width 20.9 % (11.5-14.5) Platelet Count 464 x10^3/uL (140-400) Neutrophils (%) (Auto) 79 % (31-73) Lymphocytes (%) (Auto) 10 % (24-48) Monocytes (%) (Auto) 10 % (0-9) Eosinophils (%) (Auto) 1 % (0-3) Basophils (%) (Auto) 0 % (0-3) Neutrophils # (Auto) 17.5 x10^3uL (1.8-7.7) Lymphocytes # (Auto) 2.1 x10^3/uL (1.0-4.8) Monocytes # (Auto) 2.2 x10^3/uL (0.0-1.1) Eosinophils # (Auto) 0.1 x10^3/uL (0.0-0.7) Basophils # (Auto) 0.0 x10^3/uL (0.0-0.2) Sodium Level 129 mmol/L (136-145) Potassium Level 3.6 mmol/L (3.5-5.1) Chloride Level 96 mmol/L (98-107) Carbon Dioxide Level 23 mmol/L (21-32) Anion Gap 10 (6-14) Blood Urea Nitrogen 6 mg/dL (7-20) Creatinine 0.5 mg/dL (0.6-1.0) Estimated GFR (Cockcroft-Gault) 123.1 Glucose Level 95 mg/dL (70-99) Calcium Level 8.7 mg/dL (8.5-10.1) Assessment and Plan Assessmemt and Plan Problems Medical Problems: (1) Abdominal pain Status: Acute (2) Failure to thrive Status: Acute (3) Hyponatremia Status: Acute (4) Leukocytosis Status: Acute Comment Review of Relevant I have reviewed the following items tracy (where applicable) has been applied. Labs Laboratory Tests Test 03/02/18 21:00 03/02/18 23:59 03/04/18 04:05 White Blood Count 22.9 x10^3/uL (4.0-11.0) 22.0 x10^3/uL (4.0-11.0) Red Blood Count 4.13 x10^6/uL (3.50-5.40) 3.63 x10^6/uL (3.50-5.40) Hemoglobin 11.0 g/dL (12.0-15.5) 9.6 g/dL (12.0-15.5) Hematocrit 32.7 % (36.0-47.0) 28.7 % (36.0-47.0) Mean Corpuscular Volume 79 fL (79-100) 79 fL (79-100) Mean Corpuscular Hemoglobin 27 pg (25-35) 26 pg (25-35) Mean Corpuscular Hemoglobin Concent 34 g/dL (31-37) 33 g/dL (31-37) Red Cell Distribution Width 21.0 % (11.5-14.5) 20.9 % (11.5-14.5) Platelet Count 500 x10^3/uL (140-400) 464 x10^3/uL (140-400) Neutrophils (%) (Auto) 86 % (31-73) 79 % (31-73) Lymphocytes (%) (Auto) 7 % (24-48) 10 % (24-48) Monocytes (%) (Auto) 7 % (0-9) 10 % (0-9) Eosinophils (%) (Auto) 0 % (0-3) 1 % (0-3) Basophils (%) (Auto) 0 % (0-3) 0 % (0-3) Neutrophils # (Auto) 19.7 x10^3uL (1.8-7.7) 17.5 x10^3uL (1.8-7.7) Lymphocytes # (Auto) 1.6 x10^3/uL (1.0-4.8) 2.1 x10^3/uL (1.0-4.8) Monocytes # (Auto) 1.6 x10^3/uL (0.0-1.1) 2.2 x10^3/uL (0.0-1.1) Eosinophils # (Auto) 0.1 x10^3/uL (0.0-0.7) 0.1 x10^3/uL (0.0-0.7) Basophils # (Auto) 0.0 x10^3/uL (0.0-0.2) 0.0 x10^3/uL (0.0-0.2) Segmented Neutrophils % 89 % (35-66) Band Neutrophils % 5 % (0-9) Lymphocytes % 2 % (24-48) Monocytes % 4 % (0-10) Hypersegmented Neutrophils Present Toxic Granulation Slight Dohle Bodies Present Platelet Estimate Increased (ADEQUATE) Poikilocytosis Slight Anisocytosis Slight Ovalocytes Few Schistocytes Few Prothrombin Time 17.7 SEC (11.7-14.0) Prothromb Time International Ratio 1.5 (0.8-1.1) Activated Partial Thromboplast Time 39 SEC (24-38) Sodium Level 128 mmol/L (136-145) 129 mmol/L (136-145) Potassium Level 4.3 mmol/L (3.5-5.1) 3.6 mmol/L (3.5-5.1) Chloride Level 94 mmol/L (98-107) 96 mmol/L (98-107) Carbon Dioxide Level 21 mmol/L (21-32) 23 mmol/L (21-32) Anion Gap 13 (6-14) 10 (6-14) Blood Urea Nitrogen 26 mg/dL (7-20) 6 mg/dL (7-20) Creatinine 0.9 mg/dL (0.6-1.0) 0.5 mg/dL (0.6-1.0) Estimated GFR (Cockcroft-Gault) 62.5 123.1 BUN/Creatinine Ratio 29 (6-20) Glucose Level 92 mg/dL (70-99) 95 mg/dL (70-99) Lactic Acid Level 0.9 mmol/L (0.4-2.0) Calcium Level 10.7 mg/dL (8.5-10.1) 8.7 mg/dL (8.5-10.1) Magnesium Level 1.9 mg/dL (1.8-2.4) Total Bilirubin 0.3 mg/dL (0.2-1.0) Aspartate Amino Transf (AST/SGOT) 34 U/L (15-37) Alanine Aminotransferase (ALT/SGPT) 47 U/L (14-59) Alkaline Phosphatase 158 U/L (46-116) Creatine Kinase 220 U/L (26-192) Troponin I Quantitative < 0.017 ng/mL (0.000-0.055) Total Protein 6.3 g/dL (6.4-8.2) Albumin 3.0 g/dL (3.4-5.0) Albumin/Globulin Ratio 0.9 (1.0-1.7) Lipase 318 U/L (73-393) Urine Collection Type U cath Urine Color Yellow Urine Clarity Clear Urine pH 6.0 Urine Specific [place] 1.025 Urine Protein Negative mg/dL (NEG-TRACE) Urine Glucose (UA) Negative mg/dL (NEG) Urine Ketones (Stick) Negative mg/dL (NEG) Urine Blood Negative (NEG) Urine Nitrite Negative (NEG) Urine Bilirubin Negative (NEG) Urine Urobilinogen Dipstick 0.2 mg/dL (0.2 mg/dL) Urine Leukocyte Esterase Negative (NEG) Urine RBC 0 /HPF (0-2) Urine WBC Occ /HPF (0-4) Urine Squamous Epithelial Cells Few /LPF Urine Bacteria 0 /HPF (0-FEW) Laboratory Tests Test 03/04/18 04:05 White Blood Count 22.0 x10^3/uL (4.0-11.0) Red Blood Count 3.63 x10^6/uL (3.50-5.40) Hemoglobin 9.6 g/dL (12.0-15.5) Hematocrit 28.7 % (36.0-47.0) Mean Corpuscular Volume 79 fL (79-100) Mean Corpuscular Hemoglobin 26 pg (25-35) Mean Corpuscular Hemoglobin Concent 33 g/dL (31-37) Red Cell Distribution Width 20.9 % (11.5-14.5) Platelet Count 464 x10^3/uL (140-400) Neutrophils (%) (Auto) 79 % (31-73) Lymphocytes (%) (Auto) 10 % (24-48) Monocytes (%) (Auto) 10 % (0-9) Eosinophils (%) (Auto) 1 % (0-3) Basophils (%) (Auto) 0 % (0-3) Neutrophils # (Auto) 17.5 x10^3uL (1.8-7.7) Lymphocytes # (Auto) 2.1 x10^3/uL (1.0-4.8) Monocytes # (Auto) 2.2 x10^3/uL (0.0-1.1) Eosinophils # (Auto) 0.1 x10^3/uL (0.0-0.7) Basophils # (Auto) 0.0 x10^3/uL (0.0-0.2) Sodium Level 129 mmol/L (136-145) Potassium Level 3.6 mmol/L (3.5-5.1) Chloride Level 96 mmol/L (98-107) Carbon Dioxide Level 23 mmol/L (21-32) Anion Gap 10 (6-14) Blood Urea Nitrogen 6 mg/dL (7-20) Creatinine 0.5 mg/dL (0.6-1.0) Estimated GFR (Cockcroft-Gault) 123.1 Glucose Level 95 mg/dL (70-99) Calcium Level 8.7 mg/dL (8.5-10.1) Medications Current Medications Ondansetron HCl (Zofran) 4 mg 1X ONCE IV Last administered on 03/02/18 21:17 ; Start 03/02/18 at 20:30; Stop 03/02/18 at 20:31; Status DC Famotidine (Pepcid Vial) 20 mg 1X ONCE IVP Last administered on 03/02/18at 21: 17; Start 03/02/18 at 20:30; Stop 03/02/18 at 20:31; Status DC Sodium Chloride 1,000 ml @ 1,000 mls/hr 1X ONCE IV Last administered on at 21:17; Start 03/02/18 at 20:30; Stop 03/02/18 at 21:29; Status DC Fentanyl Citrate (Fentanyl 2ml Vial) 50 mcg 1X ONCE IV Last administered on at 21:16; Start 03/02/18 at 20:45; Stop 03/02/18 at 20:46; Status DC Iohexol (Omnipaque 300 Mg/ml) 75 ml 1X ONCE IV Last administered on 03/02/18at 20:45; Start 03/02/18 at 20:45; Stop 03/02/18 at 20:50; Status DC Iohexol (Omnipaque 240 Mg/ml) 30 ml 1X ONCE PO Last administered on 03/02/18at 20:45; Start 03/02/18 at 20:45; Stop 03/02/18 at 20:50; Status DC Ondansetron HCl (Zofran) 4 mg PRN Q8HRS PRN IV NAUSEA/VOMITING; Start 03/03/18 at 01:00; Stop 03/03/18 at 17:08; Status DC Apixaban (Eliquis) 5 mg BID PO Last administered on 03/04/18at 10:58; Start at 13:00 Lisinopril (Prinivil) 10 mg DAILY PO Last administered on 03/04/18at 10:58; Start 03/03/18 at 13:00 Metoprolol Tartrate (Lopressor) 25 mg DAILY PO Last administered on 03/04/18at 10:59; Start 03/03/18 at 13:00 Oxycodone/ Acetaminophen (Percocet 10/325) 1 tab BID PRN PO SEVERE PAIN Last administered on 03/04/18at 12:41; Start 03/03/18 at 12:30 Tramadol HCl (Ultram) 2,500 mg PRN Q6HRS PO ; Start 03/03/18 at 12:30; Status UNV Citalopram Hydrobromide (CeleXA) 40 mg DAILY PO Last administered on 03/04/18at 11:00; Start 03/03/18 at 13:00 Gabapentin (Neurontin) 300 mg BID PO Last administered on 03/04/18at 10:59; Start 03/03/18 at 13:00 Lubiprostone (Amitiza) 24 mcg BIDWMEALS PO Last administered on 03/04/18at 10:57 ; Start 03/03/18 at 17:00 Non-Formulary Medication (Melatonin ) 1 tab QHS PO ; Start 03/03/18 at 21:00; Status UNV Pantoprazole Sodium (Protonix) 40 mg BIDAC PO Last administered on 03/04/18at 06 :35; Start 03/03/18 at 16:30 Acetaminophen (Tylenol) 650 mg PRN Q6HRS PRN PO FEVER; Start 03/03/18 at 12:30 Ondansetron HCl (Zofran) 4 mg PRN Q6HRS PRN IV NAUSEA/VOMITING; Start 03/03/18 at 12:30 Morphine Sulfate (Morphine Sulfate) 2 mg PRN Q2HR PRN IV MODERATE TO SEVERE PAIN; Start 03/03/18 at 12:30 Tramadol HCl (Ultram) 50 mg PRN Q6HRS PRN PO MILD TO MODERATE PAIN; Start 03/03 at 12:30; Status UNV Docusate Sodium (Colace) 100 mg PRN DAILY PRN PO CONSTIPATION; Start 03/03/18 at 12:30; Status UNV Albuterol/ Ipratropium (Duoneb) 3 ml RTQID NEB Last administered on 03/04/18at 11:09; Start 03/03/18 at 13:00 Albuterol Sulfate (Ventolin Neb Soln) 2.5 mg PRN Q2HR PRN NEB SHORTNESS OF BREATH; Start 03/03/18 at 12:30 Guaifenesin (Mucinex) 600 mg BID PO Last administered on 03/04/18at 10:59; Start 03/03/18 at 13:00 Acetaminophen (Tylenol) 650 mg PRN Q6HRS PRN PO FEVER; Start 03/03/18 at 12:30 ; Status UNV Ondansetron HCl (Zofran) 4 mg PRN Q6HRS PRN IV NAUSEA/VOMITING; Start 03/03/18 at 12:30; Status UNV Morphine Sulfate (Morphine Sulfate) 2 mg PRN Q2HR PRN IV MODERATE TO SEVERE PAIN; Start 03/03/18 at 12:30; Status UNV Tramadol HCl (Ultram) 50 mg PRN Q6HRS PRN PO MILD TO MODERATE PAIN Last administered on 03/03/18at 20:43; Start 03/03/18 at 12:30 Docusate Sodium (Colace) 100 mg PRN DAILY PRN PO CONSTIPATION; Start 03/03/18 at 12:30 Sodium Chloride 1,000 ml @ 100 mls/hr Q10H IV Last administered on 03/04/18at 03:42; Start 03/03/18 at 13:00 Enoxaparin Sodium (Lovenox 40mg Syringe) 40 mg Q24H SQ ; Start 03/03/18 at 12:30 ; Status UNV Mirtazapine (Remeron) 7.5 mg QHS PO Last administered on 03/03/18at 20:42; Start 03/03/18 at 21:00 Lidocaine (Lidoderm) 1 patch DAILY TD Last administered on 03/04/18at 11:01; Start 03/03/18 at 13:00 Miscellaneous (Lidoderm Patch Removal) 1 ea QHS MC Last administered on at 21:00; Start 03/03/18 at 21:00 Levofloxacin/ Dextrose 150 ml @ 100 mls/hr Q24H IV Last administered on at 16:25; Start 03/03/18 at 16:00 Lactobacillus Rhamnosus (Culturelle) 1 cap BID PO Last administered on at 10:58; Start 03/03/18 at 21:00 Throat Lozenges (Chloraseptic) 1 spray PRN Q2HR PRN PO SORE THROAT; Start 03/04 at 09:15 Throat Lozenges (Cepacol Sore Throat Lozenge) 1 judith PRN Q2HRS PRN PO SORE THROAT Last administered on 03/04/18at 10:57; Start 03/04/18 at 09:15 Cyanocobalamin (Vitamin B-12) 1,000 mcg DAILY PO ; Start 03/05/18 at 09:00 Diltiazem HCl (Cardizem 24hr Cd) 300 mg DAILY PO Last administered on at 12:40; Start 03/04/18 at 11:00 Non-Formulary Medication (Mirtazapine ) 7.5 mg QHS PO ; Start 03/04/18 at 21:00 ; Status UNV Sennosides (Senna) 8.6 mg PRN BID PRN PO CONSTIPATION (2nd Choice); Start 03/04 at 11:00 Active Scripts Active Lisinopril 10 Mg Tablet 1 Tab PO DAILY Tramadol Hcl 50 Mg Tablet 50 Tab PO PRN Q6HRS Celexa (Citalopram Hydrobromide) 40 Mg Tablet 40 Mg PO DAILY Reported Cardizem Cd (Diltiazem Hcl) 360 Mg Cap.er.24h 300 Mg PO DAILY Senokot (Sennosides) 8.6 Mg Tablet 1 Tab PO PRN BID Mirtazapine 15 Mg Tablet 7.5 Mg PO QHS Milk Of Magnesia (Magnesium Hydroxide) 2,400 Mg/10 Ml Oral.susp 2,400 Mg PO Cyanocobalamin Injection (Cyanocobalamin (Vitamin B-12)) 1,000 Mcg/1 Ml Vial 1 Ml IM QMONTH Vitamin B-12 (Cyanocobalamin (Vitamin B-12)) 1,000 Mcg Tablet 1 Tab PO DAILY Alum-Mag Hydroxide-Simeth Liq (Mag Hydrox/Al Hydrox/Simeth) 360 Ml Oral.susp 360 Ml PO Albuterol Sulfate Conc Neb Soln (Albuterol Sulfate) 2.5 Mg/0.5 Ml Vial.neb 1 Vial NEB Q6HRS Metoprolol Tartrate 25 Mg Tablet 1 Tab PO DAILY Melatonin 3 Mg Tablet 1 Tab PO QHS Lidocaine 1 Each Adh..patch 1 Each TP Levsin (Hyoscyamine Sulfate) 0.125 Mg Tablet 1 Tab PO TID PRN Percocet 10-325 Mg Tablet (Oxycodone/Acetaminophen) 1 Each Tablet 1 Tab PO BID PRN Amitiza (Lubiprostone) 24 Mcg Capsule 1 Cap PO BID Acetaminophen 500 Mg Tablet 2 Tab PO Q6HRS Eliquis (Apixaban) 5 Mg Tablet 5 Mg PO BID Gabapentin 300 Mg Capsule 300 Mg PO BID Omeprazole 40 Mg Capsule.dr 40 Mg PO BID LAST DOSE GIVEN: DATE: today we use Pantaprozole (Protonix) TIME: 8:30 AM NEXT DOSE DUE: DATE: tomorrow morning Vitals/I & O Vital Sign - Last 24 Hours 03/03/18 03/03/18 03/03/18 03/03/18 13:51 13:51 13:52 15:00 Temp 97.8 97.8 Pulse 115 115 97 Resp 18 16 B/P (MAP) 120/67 120/67 118/74 (89) Pulse Ox 98 O2 Delivery Nasal Cannula Room Air O2 Flow Rate 3.0 03/03/18 03/03/18 03/03/18 03/03/18 15:32 17:47 19:00 19:36 Temp 99.1 99.1 Pulse 112 Resp 18 16 B/P (MAP) 118/72 (87) Pulse Ox 97 98 96 O2 Delivery Nasal Cannula Nasal Cannula Room Air Nasal Cannula O2 Flow Rate 2.0 3.0 2.0 03/03/18 03/03/18 03/03/18 03/04/18 20:00 20:43 23:00 03:00 Temp 98.9 98.1 98.9 98.1 Pulse 110 129 Resp 20 16 16 B/P (MAP) 136/72 (93) 149/59 (89) Pulse Ox 94 95 O2 Delivery Nasal Cannula Nasal Cannula Room Air Room Air O2 Flow Rate 2.0 2.0 03/04/18 03/04/18 03/04/18 03/04/18 03:43 05:02 07:00 07:09 Temp 98.8 98.8 Pulse 106 Resp 20 18 16 B/P (MAP) 141/71 (94) Pulse Ox 95 86 90 O2 Delivery Nasal Cannula Nasal Cannula Room Air Nasal Cannula O2 Flow Rate 2.0 2.0 2.0 03/04/18 03/04/18 03/04/18 03/04/18 10:58 10:59 11:00 11:10 Temp 99.2 99.2 Pulse 106 106 97 Resp 16 B/P (MAP) 141/71 141/71 122/79 (93) O2 Delivery Nasal Cannula Nasal Cannula O2 Flow Rate 2.0 03/04/18 03/04/18 12:40 12:41 Pulse 97 Resp 20 B/P (MAP) 122/79 O2 Delivery Nasal Cannula O2 Flow Rate 3.0 Nutrition Consultation Dietary Evaluation: Recommendations by RD: Increase Calorie Intake, Protein supplementation Comments: offer supplement of choice/ encourage po intake Expected Outcomes/Goals: to meet > 75% est nutr needs Interpretation of weight loss: >10% in 6 months Malnutrition Findings: Weight Status: Appropriate JUNG CONNELL MD Mar 04, 2018 13:09
[2018-03-04] MEDS: ANTI-COAG MONITOR BY PHARMACY. MC PRN (14:15)
[2018-03-04 15:19] VITALS: BP 99/57
[2018-03-04] MEDS: traMADol 50 MG TABLET PO PRN (16:29)
[2018-03-04 19:00] VITALS: BP 123/73
[2018-03-04] MEDS: MIRTAZAPINE 7.5 MG TABLET. PO SCH (21:00)
[2018-03-04] MEDS: PATCH REMOVAL. MC SCH (21:00)
[2018-03-04] MEDS ORDERED: MIRTAZAPINE 7.5 MG PO SCH (21:00)
[2018-03-04 23:00] VITALS: BP 110/50
[2018-03-05] VITALS (7 sets, daily range): BP systolic 105–146; BP diastolic 57–86
[2018-03-05 04:51] LABS: BASO % 0 % (0-3); EOS # 0.4 x10^3/uL (0.0-0.7); EOS % 2 % (0-3); HEMATOCRIT 27.8 % (36.0-47.0); HEMOGLOBIN 9.3 g/dL (12.0-15.5); LYMPH # 2.6 x10^3/uL (1.0-4.8); LYMPH % 14 % (24-48); MEAN CORPUSCULAR HEMOGLOBIN 27 pg (25-35); MEAN CORPUSCULAR HGB CONC 34 g/dL (31-37); MEAN CORPUSCULAR VOLUME 79 fL (79-100); MONO # 2.4 x10^3/uL (0.0-1.1); MONO % 13 % (0-9); NEUT # 13.6 x10^3uL (1.8-7.7); NEUT % 72 % (31-73); PLATELET COUNT 457 x10^3/uL (140-400); RED CELL DISTRIBUTION WIDTH 21.5 % (11.5-14.5); WHITE BLOOD COUNT 19.1 x10^3/uL (4.0-11.0)
[2018-03-05 05:28] LABS: CALCIUM 9.1 mg/dL (8.5-10.1); CREATININE 0.4 mg/dL (0.6-1.0); GFR 159.2; POTASSIUM 3.5 mmol/L (3.5-5.1)
[2018-03-05] MEDS: IV NORMAL SALINE 1000ML BAG 1,000 ML IV SCH ×3 (06:26→20:04)
[2018-03-05] MEDS: traMADol 50 MG TABLET PO PRN ×3 (06:26→20:58)
[2018-03-05] MEDS: PANTOPRAZOLE 40 MG TABLET.DR. PO SCH ×2 (06:26→17:59)
[2018-03-05] MEDS: IPRATRPIUM/ALBUTEROL 0.5/2.5MG 3 ML NEBU. NEB SCH ×4 (07:03→19:36)
[2018-03-05] MEDS: oxyCODONE/APAP 10/325 1 TAB TABLET PO PRN (09:20)
[2018-03-05] MEDS: METOPROLOL TART IMMED RELEASE 25 MG TABLET. PO SCH ×2 (09:20→20:57)
[2018-03-05] MEDS: GABAPENTIN 300 MG CAPSULE. PO SCH ×2 (09:21→20:56)
[2018-03-05] MEDS: APIXABAN 5 MG TABLET. PO SCH ×2 (09:21→20:57)
[2018-03-05] MEDS: LACTOBACILLUS RHAMNOSUS GG 1 CAPSULE. PO SCH ×2 (09:21→20:56)
[2018-03-05] MEDS: CYANOCOBALAMIN (VITAMIN B-12) 1,000 MCG TABLET. PO SCH (09:21)
[2018-03-05] MEDS: LISINOPRIL 10 MG TABLET PO SCH (09:22)
[2018-03-05] MEDS: CITALOPRAM 20 MG TABLET. PO SCH (09:22)
[2018-03-05] MEDS: LUBIPROSTONE 8 MCG CAPSULE PO SCH ×2 (09:23→17:59)
[2018-03-05] MEDS: LIDOCAINE (700MG/PATCH) PATCH. TD SCH (09:24)
--- NOTE | 2018-03-05 09:42 | EKG ---
[facility] [address] [place] [address] Test Date: 2018-03-05 Test Time: 08:33:47 Pat Name: MATIAS ORTEZ Department: Room: [facility] Gender: F [employer]: : 1950 Requested By: JUNG CONNELL Order Number: [id number] Reading MD: Marck Lozada Measurements Intervals [place] Rate: 150 P: NV: QRS: 28 QRSD: 72 T: 101 QT: 278 QTc: 441 Interpretive Statements ATRIAL FIBRILLATION WITH RVR LOW LIMB LEAD VOLTAGE ABNORMAL ECG Electronically Signed On 03-07-2018 11:01:06 CDT by Marck Lozada
--- NOTE | 2018-03-05 10:03 | PDOC ---
PULMONARY PROGRESS NOTES Subjective more awake. c/o cough Vitals Vital Signs Date Time Temp Pulse Resp B/P (MAP) Pulse Ox O2 Delivery O2 Flow Rate FiO2 03/05/18 09:22 171 124/75 03/05/18 09:20 24 Nasal Cannula 3.0 03/05/18 08:42 99.3 99.3 03/05/18 07:05 96 General: Alert Lungs: Other (bl moderate decreased bs) Cardiovascular: S1 Abdomen: Soft Neuro Exam: Alert Extremities: No Edema Skin: Warm Labs Laboratory Tests Test 03/04/18 04:05 03/05/18 04:15 White Blood Count 22.0 x10^3/uL (4.0-11.0) 19.1 x10^3/uL (4.0-11.0) Red Blood Count 3.63 x10^6/uL (3.50-5.40) 3.50 x10^6/uL (3.50-5.40) Hemoglobin 9.6 g/dL (12.0-15.5) 9.3 g/dL (12.0-15.5) Hematocrit 28.7 % (36.0-47.0) 27.8 % (36.0-47.0) Mean Corpuscular Volume 79 fL (79-100) 79 fL (79-100) Mean Corpuscular Hemoglobin 26 pg (25-35) 27 pg (25-35) Mean Corpuscular Hemoglobin Concent 33 g/dL (31-37) 34 g/dL (31-37) Red Cell Distribution Width 20.9 % (11.5-14.5) 21.5 % (11.5-14.5) Platelet Count 464 x10^3/uL (140-400) 457 x10^3/uL (140-400) Neutrophils (%) (Auto) 79 % (31-73) 72 % (31-73) Lymphocytes (%) (Auto) 10 % (24-48) 14 % (24-48) Monocytes (%) (Auto) 10 % (0-9) 13 % (0-9) Eosinophils (%) (Auto) 1 % (0-3) 2 % (0-3) Basophils (%) (Auto) 0 % (0-3) 0 % (0-3) Neutrophils # (Auto) 17.5 x10^3uL (1.8-7.7) 13.6 x10^3uL (1.8-7.7) Lymphocytes # (Auto) 2.1 x10^3/uL (1.0-4.8) 2.6 x10^3/uL (1.0-4.8) Monocytes # (Auto) 2.2 x10^3/uL (0.0-1.1) 2.4 x10^3/uL (0.0-1.1) Eosinophils # (Auto) 0.1 x10^3/uL (0.0-0.7) 0.4 x10^3/uL (0.0-0.7) Basophils # (Auto) 0.0 x10^3/uL (0.0-0.2) 0.0 x10^3/uL (0.0-0.2) Sodium Level 129 mmol/L (136-145) 134 mmol/L (136-145) Potassium Level 3.6 mmol/L (3.5-5.1) 3.5 mmol/L (3.5-5.1) Chloride Level 96 mmol/L (98-107) 100 mmol/L (98-107) Carbon Dioxide Level 23 mmol/L (21-32) 27 mmol/L (21-32) Anion Gap 10 (6-14) 7 (6-14) Blood Urea Nitrogen 6 mg/dL (7-20) 4 mg/dL (7-20) Creatinine 0.5 mg/dL (0.6-1.0) 0.4 mg/dL (0.6-1.0) Estimated GFR (Cockcroft-Gault) 123.1 159.2 Glucose Level 95 mg/dL (70-99) 92 mg/dL (70-99) Calcium Level 8.7 mg/dL (8.5-10.1) 9.1 mg/dL (8.5-10.1) Laboratory Tests Test 03/05/18 04:15 White Blood Count 19.1 x10^3/uL (4.0-11.0) Red Blood Count 3.50 x10^6/uL (3.50-5.40) Hemoglobin 9.3 g/dL (12.0-15.5) Hematocrit 27.8 % (36.0-47.0) Mean Corpuscular Volume 79 fL (79-100) Mean Corpuscular Hemoglobin 27 pg (25-35) Mean Corpuscular Hemoglobin Concent 34 g/dL (31-37) Red Cell Distribution Width 21.5 % (11.5-14.5) Platelet Count 457 x10^3/uL (140-400) Neutrophils (%) (Auto) 72 % (31-73) Lymphocytes (%) (Auto) 14 % (24-48) Monocytes (%) (Auto) 13 % (0-9) Eosinophils (%) (Auto) 2 % (0-3) Basophils (%) (Auto) 0 % (0-3) Neutrophils # (Auto) 13.6 x10^3uL (1.8-7.7) Lymphocytes # (Auto) 2.6 x10^3/uL (1.0-4.8) Monocytes # (Auto) 2.4 x10^3/uL (0.0-1.1) Eosinophils # (Auto) 0.4 x10^3/uL (0.0-0.7) Basophils # (Auto) 0.0 x10^3/uL (0.0-0.2) Sodium Level 134 mmol/L (136-145) Potassium Level 3.5 mmol/L (3.5-5.1) Chloride Level 100 mmol/L (98-107) Carbon Dioxide Level 27 mmol/L (21-32) Anion Gap 7 (6-14) Blood Urea Nitrogen 4 mg/dL (7-20) Creatinine 0.4 mg/dL (0.6-1.0) Estimated GFR (Cockcroft-Gault) 159.2 Glucose Level 92 mg/dL (70-99) Calcium Level 9.1 mg/dL (8.5-10.1) Medications Active Scripts Medications Dose Route/Sig Max Daily Dose Days Date Category Dose Instructions Senokot (Sennosides) 8.6 Mg Tablet 1 Tab PO PRN BID 03/03/18 Reported Mirtazapine 15 Mg Tablet 7.5 Mg PO QHS 03/03/18 Reported Milk Of Magnesia (Magnesium Hydroxide) 2,400 Mg/10 Ml Oral.susp 2,400 Mg PO 03/03/18 Reported Cardizem Cd (Diltiazem Hcl) 360 Mg Cap.er.24h 300 Mg PO BID 03/03/18 Reported Cyanocobalamin Injection (Cyanocobalamin (Vitamin B-12)) 1,000 Mcg/1 Ml Vial 1 Ml IM QMONTH 03/03/18 Reported Vitamin B-12 (Cyanocobalamin (Vitamin B-12)) 1,000 Mcg Tablet 1 Tab PO DAILY 03/03/18 Reported Alum-Mag Hydroxide-Simeth Liq (Mag Hydrox/Al Hydrox/Simeth) 360 Ml Oral.susp 360 Ml PO 03/03/18 Reported Albuterol Sulfate Conc Neb Soln (Albuterol Sulfate) 2.5 Mg/0.5 Ml Vial.neb 1 Vial NEB Q6HRS 03/03/18 Reported Metoprolol Tartrate 25 Mg Tablet 1 Tab PO DAILY 03/03/18 Reported Melatonin 3 Mg Tablet 1 Tab PO QHS 03/03/18 Reported Lidocaine 1 Each Adh..patch 1 Each TP 03/03/18 Reported Levsin (Hyoscyamine Sulfate) 0.125 Mg Tablet 1 Tab PO TID PRN 03/03/18 Reported Percocet 10-325 Mg Tablet (Oxycodone/Acetaminophen) 1 Each Tablet 1 Tab PO BID PRN 03/03/18 Reported Amitiza (Lubiprostone) 24 Mcg Capsule 1 Cap PO BID 03/03/18 Reported Acetaminophen 500 Mg Tablet 2 Tab PO Q6HRS 03/03/18 Reported Lisinopril 10 Mg Tablet 1 Tab PO DAILY 05/30/17 Rx Eliquis (Apixaban) 5 Mg Tablet 5 Mg PO BID 05/26/17 Reported Gabapentin 300 Mg Capsule 300 Mg PO BID 05/26/17 Reported Tramadol Hcl 50 Mg Tablet 50 Tab PO PRN Q6HRS 02/09/15 Rx Celexa (Citalopram Hydrobromide) 40 Mg Tablet 40 Mg PO DAILY 09/26/14 Rx Omeprazole 40 Mg Capsule.dr 40 Mg PO BID 02/04/14 Reported LAST DOSE GIVEN: DATE: today we use Pantaprozole (Protonix) TIME: 8:30 AM NEXT DOSE DUE: DATE: tomorrow morning Impression . 1. Abnormal CT chest consistent with pneumonia. 2. Cough with yellow sputum production and CT chest findings compatible with pneumonia, suspect gram-negative. 3. Underlying chronic obstructive pulmonary disease, which is with chronic hypoxic respiratory failure, on home oxygen at 3.5 liters, was currently on 2.5 liters. 4. Abdominal pain per PCP. 5. Aflutter today Plan . 1. We will continue with Levaquin. 2. Continue bronchodilators. 3. Continue present oxygen. 4. Anticoagulation with Eliquis per PCP. 5. We will obtain chest x-ray in am to see clinical and radiographic improvement. BATOOL BABCOCK MD Mar 05, 2018 10:03
[2018-03-05] MEDS ORDERED: METOPROLOL TARTRATE 5 MG/5 ML VIAL. IVP ONE (10:30)
[2018-03-05] MEDS: ANTI-COAG MONITOR BY PHARMACY. MC PRN (13:31)
--- NOTE | 2018-03-05 14:11 | PDOC ---
PROGRESS NOTES Chief Complaint Chief Complaint left rib cage pain with old fx likely AMS, metabolic encephalopathy likely CAP unsteady gait with frequent fall chronic constipation cough hyponatremia failure to thrive leukocytosis sepsis fibromyalgia htn Pfib on eliquis h/o drug seeking behavior chronic pain on tramadol mild malnutrition tobaccoism plan: pulm consulted check Chest ct showed some infiltrate and unhealed fx cont some home meds, abd CT neg. pain control bcx pending add levaquin ivf cont nutrition consult, ID consult PTOT cont eliquis for now, resume metoprolol, cardizem. increase metoprolol today given tachycardia, check echo, card consult duoneb, cough meds sw FOR POSSIBLE rehab History of Present Illness History of Present Illness ROS: no fever, chills, sob or chest pain COUGH A lot, c/o left rib cage pain with tenderness slightly better, but still looks very weak as per nurse, it could be pt's baseline wbc 22 down to 19 Na 129 better to 134 03/05: rapid afib at 170s for 1h , better with po meds Vitals Vitals Vital Signs Date Time Temp Pulse Resp B/P (MAP) Pulse Ox O2 Delivery O2 Flow Rate FiO2 03/05/18 12:40 20 Nasal Cannula 3.0 03/05/18 11:14 97 03/05/18 11:00 98.0 73 125/77 (93) 98.0 Physical Exam Physical Exam left rib cage + tenderness General: Alert, Oriented X3, Cooperative Heart: Normal S1, Normal S2, Other (irregular) Lungs: Other (bl moderate decreased bs) Abdomen: Normal bowel sounds, Soft Extremities: No clubbing, No cyanosis Skin: No rashes Labs LABS Laboratory Tests Test 03/05/18 04:15 White Blood Count 19.1 x10^3/uL (4.0-11.0) Red Blood Count 3.50 x10^6/uL (3.50-5.40) Hemoglobin 9.3 g/dL (12.0-15.5) Hematocrit 27.8 % (36.0-47.0) Mean Corpuscular Volume 79 fL (79-100) Mean Corpuscular Hemoglobin 27 pg (25-35) Mean Corpuscular Hemoglobin Concent 34 g/dL (31-37) Red Cell Distribution Width 21.5 % (11.5-14.5) Platelet Count 457 x10^3/uL (140-400) Neutrophils (%) (Auto) 72 % (31-73) Lymphocytes (%) (Auto) 14 % (24-48) Monocytes (%) (Auto) 13 % (0-9) Eosinophils (%) (Auto) 2 % (0-3) Basophils (%) (Auto) 0 % (0-3) Neutrophils # (Auto) 13.6 x10^3uL (1.8-7.7) Lymphocytes # (Auto) 2.6 x10^3/uL (1.0-4.8) Monocytes # (Auto) 2.4 x10^3/uL (0.0-1.1) Eosinophils # (Auto) 0.4 x10^3/uL (0.0-0.7) Basophils # (Auto) 0.0 x10^3/uL (0.0-0.2) Sodium Level 134 mmol/L (136-145) Potassium Level 3.5 mmol/L (3.5-5.1) Chloride Level 100 mmol/L (98-107) Carbon Dioxide Level 27 mmol/L (21-32) Anion Gap 7 (6-14) Blood Urea Nitrogen 4 mg/dL (7-20) Creatinine 0.4 mg/dL (0.6-1.0) Estimated GFR (Cockcroft-Gault) 159.2 Glucose Level 92 mg/dL (70-99) Calcium Level 9.1 mg/dL (8.5-10.1) Assessment and Plan Assessmemt and Plan Problems Medical Problems: (1) Abdominal pain Status: Acute (2) Failure to thrive Status: Acute (3) Hyponatremia Status: Acute (4) Leukocytosis Status: Acute Comment Review of Relevant I have reviewed the following items tracy (where applicable) has been applied. Labs Laboratory Tests Test 03/04/18 04:05 03/05/18 04:15 White Blood Count 22.0 x10^3/uL (4.0-11.0) 19.1 x10^3/uL (4.0-11.0) Red Blood Count 3.63 x10^6/uL (3.50-5.40) 3.50 x10^6/uL (3.50-5.40) Hemoglobin 9.6 g/dL (12.0-15.5) 9.3 g/dL (12.0-15.5) Hematocrit 28.7 % (36.0-47.0) 27.8 % (36.0-47.0) Mean Corpuscular Volume 79 fL (79-100) 79 fL (79-100) Mean Corpuscular Hemoglobin 26 pg (25-35) 27 pg (25-35) Mean Corpuscular Hemoglobin Concent 33 g/dL (31-37) 34 g/dL (31-37) Red Cell Distribution Width 20.9 % (11.5-14.5) 21.5 % (11.5-14.5) Platelet Count 464 x10^3/uL (140-400) 457 x10^3/uL (140-400) Neutrophils (%) (Auto) 79 % (31-73) 72 % (31-73) Lymphocytes (%) (Auto) 10 % (24-48) 14 % (24-48) Monocytes (%) (Auto) 10 % (0-9) 13 % (0-9) Eosinophils (%) (Auto) 1 % (0-3) 2 % (0-3) Basophils (%) (Auto) 0 % (0-3) 0 % (0-3) Neutrophils # (Auto) 17.5 x10^3uL (1.8-7.7) 13.6 x10^3uL (1.8-7.7) Lymphocytes # (Auto) 2.1 x10^3/uL (1.0-4.8) 2.6 x10^3/uL (1.0-4.8) Monocytes # (Auto) 2.2 x10^3/uL (0.0-1.1) 2.4 x10^3/uL (0.0-1.1) Eosinophils # (Auto) 0.1 x10^3/uL (0.0-0.7) 0.4 x10^3/uL (0.0-0.7) Basophils # (Auto) 0.0 x10^3/uL (0.0-0.2) 0.0 x10^3/uL (0.0-0.2) Sodium Level 129 mmol/L (136-145) 134 mmol/L (136-145) Potassium Level 3.6 mmol/L (3.5-5.1) 3.5 mmol/L (3.5-5.1) Chloride Level 96 mmol/L (98-107) 100 mmol/L (98-107) Carbon Dioxide Level 23 mmol/L (21-32) 27 mmol/L (21-32) Anion Gap 10 (6-14) 7 (6-14) Blood Urea Nitrogen 6 mg/dL (7-20) 4 mg/dL (7-20) Creatinine 0.5 mg/dL (0.6-1.0) 0.4 mg/dL (0.6-1.0) Estimated GFR (Cockcroft-Gault) 123.1 159.2 Glucose Level 95 mg/dL (70-99) 92 mg/dL (70-99) Calcium Level 8.7 mg/dL (8.5-10.1) 9.1 mg/dL (8.5-10.1) Laboratory Tests Test 03/05/18 04:15 White Blood Count 19.1 x10^3/uL (4.0-11.0) Red Blood Count 3.50 x10^6/uL (3.50-5.40) Hemoglobin 9.3 g/dL (12.0-15.5) Hematocrit 27.8 % (36.0-47.0) Mean Corpuscular Volume 79 fL (79-100) Mean Corpuscular Hemoglobin 27 pg (25-35) Mean Corpuscular Hemoglobin Concent 34 g/dL (31-37) Red Cell Distribution Width 21.5 % (11.5-14.5) Platelet Count 457 x10^3/uL (140-400) Neutrophils (%) (Auto) 72 % (31-73) Lymphocytes (%) (Auto) 14 % (24-48) Monocytes (%) (Auto) 13 % (0-9) Eosinophils (%) (Auto) 2 % (0-3) Basophils (%) (Auto) 0 % (0-3) Neutrophils # (Auto) 13.6 x10^3uL (1.8-7.7) Lymphocytes # (Auto) 2.6 x10^3/uL (1.0-4.8) Monocytes # (Auto) 2.4 x10^3/uL (0.0-1.1) Eosinophils # (Auto) 0.4 x10^3/uL (0.0-0.7) Basophils # (Auto) 0.0 x10^3/uL (0.0-0.2) Sodium Level 134 mmol/L (136-145) Potassium Level 3.5 mmol/L (3.5-5.1) Chloride Level 100 mmol/L (98-107) Carbon Dioxide Level 27 mmol/L (21-32) Anion Gap 7 (6-14) Blood Urea Nitrogen 4 mg/dL (7-20) Creatinine 0.4 mg/dL (0.6-1.0) Estimated GFR (Cockcroft-Gault) 159.2 Glucose Level 92 mg/dL (70-99) Calcium Level 9.1 mg/dL (8.5-10.1) Microbiology 03/03/18 Blood Culture - Preliminary, Resulted NO GROWTH AFTER 2 DAYS Medications Current Medications Ondansetron HCl (Zofran) 4 mg 1X ONCE IV Last administered on 03/02/18 21:17 ; Start 03/02/18 at 20:30; Stop 03/02/18 at 20:31; Status DC Famotidine (Pepcid Vial) 20 mg 1X ONCE IVP Last administered on 03/02/18 21: 17; Start 03/02/18 at 20:30; Stop 03/02/18 at 20:31; Status DC Sodium Chloride 1,000 ml @ 1,000 mls/hr 1X ONCE IV Last administered on at 21:17; Start 03/02/18 at 20:30; Stop 03/02/18 at 21:29; Status DC Fentanyl Citrate (Fentanyl 2ml Vial) 50 mcg 1X ONCE IV Last administered on at 21:16; Start 03/02/18 at 20:45; Stop 03/02/18 at 20:46; Status DC Iohexol (Omnipaque 300 Mg/ml) 75 ml 1X ONCE IV Last administered on 03/02/18at 20:45; Start 03/02/18 at 20:45; Stop 03/02/18 at 20:50; Status DC Iohexol (Omnipaque 240 Mg/ml) 30 ml 1X ONCE PO Last administered on 03/02/18at 20:45; Start 03/02/18 at 20:45; Stop 03/02/18 at 20:50; Status DC Ondansetron HCl (Zofran) 4 mg PRN Q8HRS PRN IV NAUSEA/VOMITING; Start 03/03/18 at 01:00; Stop 03/03/18 at 17:08; Status DC Apixaban (Eliquis) 5 mg BID PO Last administered on 03/05/18at 09:21; Start at 13:00 Lisinopril (Prinivil) 10 mg DAILY PO Last administered on 03/05/18at 09:22; Start 03/03/18 at 13:00 Metoprolol Tartrate (Lopressor) 25 mg DAILY PO Last administered on 03/05/18at 09:20; Start 03/03/18 at 13:00; Stop 03/05/18 at 10:09; Status DC Oxycodone/ Acetaminophen (Percocet 10/325) 1 tab BID PRN PO SEVERE PAIN Last administered on 03/04/18at 12:41; Start 03/03/18 at 12:30; Stop 03/04/18 at 14:19 ; Status DC Tramadol HCl (Ultram) 2,500 mg PRN Q6HRS PO ; Start 03/03/18 at 12:30; Status UNV Citalopram Hydrobromide (CeleXA) 40 mg DAILY PO Last administered on 03/05/18at 09:22; Start 03/03/18 at 13:00 Gabapentin (Neurontin) 300 mg BID PO Last administered on 03/05/18at 09:21; Start 03/03/18 at 13:00 Lubiprostone (Amitiza) 24 mcg BIDWMEALS PO Last administered on 03/05/18at 09:23 ; Start 03/03/18 at 17:00 Non-Formulary Medication (Melatonin ) 1 tab QHS PO ; Start 03/03/18 at 21:00; Status UNV Pantoprazole Sodium (Protonix) 40 mg BIDAC PO Last administered on 03/05/18at 06 :26; Start 03/03/18 at 16:30 Acetaminophen (Tylenol) 650 mg PRN Q6HRS PRN PO FEVER; Start 03/03/18 at 12:30 Ondansetron HCl (Zofran) 4 mg PRN Q6HRS PRN IV NAUSEA/VOMITING; Start 03/03/18 at 12:30 Morphine Sulfate (Morphine Sulfate) 2 mg PRN Q2HR PRN IV MODERATE TO SEVERE PAIN; Start 03/03/18 at 12:30 Tramadol HCl (Ultram) 50 mg PRN Q6HRS PRN PO MILD TO MODERATE PAIN; Start 03/03 at 12:30; Status UNV Docusate Sodium (Colace) 100 mg PRN DAILY PRN PO CONSTIPATION; Start 03/03/18 at 12:30; Status UNV Albuterol/ Ipratropium (Duoneb) 3 ml RTQID NEB Last administered on 03/05/18at 11:13; Start 03/03/18 at 13:00 Albuterol Sulfate (Ventolin Neb Soln) 2.5 mg PRN Q2HR PRN NEB SHORTNESS OF BREATH; Start 03/03/18 at 12:30 Guaifenesin (Mucinex) 600 mg BID PO Last administered on 03/05/18at 09:21; Start 03/03/18 at 13:00 Acetaminophen (Tylenol) 650 mg PRN Q6HRS PRN PO FEVER; Start 03/03/18 at 12:30 ; Status UNV Ondansetron HCl (Zofran) 4 mg PRN Q6HRS PRN IV NAUSEA/VOMITING; Start 03/03/18 at 12:30; Status UNV Morphine Sulfate (Morphine Sulfate) 2 mg PRN Q2HR PRN IV MODERATE TO SEVERE PAIN; Start 03/03/18 at 12:30; Status UNV Tramadol HCl (Ultram) 50 mg PRN Q6HRS PRN PO MILD TO MODERATE PAIN Last administered on 03/05/18at 12:40; Start 03/03/18 at 12:30 Docusate Sodium (Colace) 100 mg PRN DAILY PRN PO CONSTIPATION; Start 03/03/18 at 12:30 Sodium Chloride 1,000 ml @ 100 mls/hr Q10H IV Last administered on 03/05/18at 06:26; Start 03/03/18 at 13:00 Enoxaparin Sodium (Lovenox 40mg Syringe) 40 mg Q24H SQ ; Start 03/03/18 at 12:30 ; Status UNV Mirtazapine (Remeron) 7.5 mg QHS PO Last administered on 03/04/18 21:00; Start 03/03/18 at 21:00 Lidocaine (Lidoderm) 1 patch DAILY TD Last administered on 03/05/18 09:24; Start 03/03/18 at 13:00 Miscellaneous (Lidoderm Patch Removal) 1 ea QHS MC Last administered on 21:00; Start 03/03/18 at 21:00 Levofloxacin/ Dextrose 150 ml @ 100 mls/hr Q24H IV Last administered on at 16:32; Start 03/03/18 at 16:00 Lactobacillus Rhamnosus (Culturelle) 1 cap BID PO Last administered on 09:21; Start 03/03/18 at 21:00 Throat Lozenges (Chloraseptic) 1 spray PRN Q2HR PRN PO SORE THROAT; Start 03/04 at 09:15 Throat Lozenges (Cepacol Sore Throat Lozenge) 1 judith PRN Q2HRS PRN PO SORE THROAT Last administered on 03/04/18at 20:59; Start 03/04/18 at 09:15 Cyanocobalamin (Vitamin B-12) 1,000 mcg DAILY PO Last administered on 09:21; Start 03/05/18 at 09:00 Diltiazem HCl (Cardizem 24hr Cd) 300 mg DAILY PO Last administered on 09:22; Start 03/04/18 at 11:00 Non-Formulary Medication (Mirtazapine ) 7.5 mg QHS PO ; Start 03/04/18 at 21:00 ; Status UNV Sennosides (Senna) 8.6 mg PRN BID PRN PO CONSTIPATION (2nd Choice); Start 03/04 at 11:00 Info (Anti-Coagulation Monitoring By Pharmacy) 1 each PRN DAILY PRN MC SEE COMMENTS Last administered on 03/05/18at 13:31; Start 03/04/18 at 13:45 Oxycodone/ Acetaminophen (Percocet 10/325) 1 tab PRN BID PRN PO SEVERE PAIN Last administered on 03/05/18 09:20; Start 03/04/18 at 14:30 Metoprolol Tartrate (Lopressor) 25 mg BID PO ; Start 03/05/18 at 21:00 Metoprolol Tartrate (Lopressor Vial) 5 mg 1X ONCE IVP ; Start 03/05/18 at 10:30 ; Stop 03/05/18 at 10:31; Status DC Active Scripts Active Lisinopril 10 Mg Tablet 1 Tab PO DAILY Tramadol Hcl 50 Mg Tablet 50 Tab PO PRN Q6HRS Celexa (Citalopram Hydrobromide) 40 Mg Tablet 40 Mg PO DAILY Reported Cardizem Cd (Diltiazem Hcl) 360 Mg Cap.er.24h 300 Mg PO DAILY Senokot (Sennosides) 8.6 Mg Tablet 1 Tab PO PRN BID Mirtazapine 15 Mg Tablet 7.5 Mg PO QHS Milk Of Magnesia (Magnesium Hydroxide) 2,400 Mg/10 Ml Oral.susp 2,400 Mg PO Cyanocobalamin Injection (Cyanocobalamin (Vitamin B-12)) 1,000 Mcg/1 Ml Vial 1 Ml IM QMONTH Vitamin B-12 (Cyanocobalamin (Vitamin B-12)) 1,000 Mcg Tablet 1 Tab PO DAILY Alum-Mag Hydroxide-Simeth Liq (Mag Hydrox/Al Hydrox/Simeth) 360 Ml Oral.susp 360 Ml PO Albuterol Sulfate Conc Neb Soln (Albuterol Sulfate) 2.5 Mg/0.5 Ml Vial.neb 1 Vial NEB Q6HRS Metoprolol Tartrate 25 Mg Tablet 1 Tab PO DAILY Melatonin 3 Mg Tablet 1 Tab PO QHS Lidocaine 1 Each Adh..patch 1 Each TP Levsin (Hyoscyamine Sulfate) 0.125 Mg Tablet 1 Tab PO TID PRN Percocet 10-325 Mg Tablet (Oxycodone/Acetaminophen) 1 Each Tablet 1 Tab PO BID PRN Amitiza (Lubiprostone) 24 Mcg Capsule 1 Cap PO BID Acetaminophen 500 Mg Tablet 2 Tab PO Q6HRS Eliquis (Apixaban) 5 Mg Tablet 5 Mg PO BID Gabapentin 300 Mg Capsule 300 Mg PO BID Omeprazole 40 Mg Capsule.dr 40 Mg PO BID LAST DOSE GIVEN: DATE: today we use Pantaprozole (Protonix) TIME: 8:30 AM NEXT DOSE DUE: DATE: tomorrow morning Vitals/I & O Vital Sign - Last 24 Hours 03/04/18 03/04/18 03/04/18 03/04/18 14:58 15:19 16:29 19:00 Temp 99.2 98.9 99.2 98.9 Pulse 97 101 Resp 18 18 B/P (MAP) 99/57 (71) 123/73 (90) Pulse Ox 90 95 O2 Delivery Nasal Cannula Nasal Cannula Nasal Cannula Nasal Cannula O2 Flow Rate 2.0 2.0 3.0 2.0 03/04/18 03/04/18 03/04/18 03/04/18 19:50 20:11 21:01 22:10 Resp 16 Pulse Ox 95 95 O2 Delivery Nasal Cannula Nasal Cannula Nasal Cannula O2 Flow Rate 3.0 2.0 3.0 03/04/18 03/05/18 03/05/18 03/05/18 23:00 03:00 06:26 07:00 Temp 99.1 99.3 98.4 99.1 99.3 98.4 Pulse 108 113 166 Resp 18 18 16 16 B/P (MAP) 110/50 (70) 124/75 (91) 146/86 (106) Pulse Ox 92 94 96 92 O2 Delivery Nasal Cannula Nasal Cannula Nasal Cannula Room Air O2 Flow Rate 2.0 2.0 3.0 03/05/18 03/05/18 03/05/18 03/05/18 07:05 07:26 08:00 08:42 Temp 99.3 99.3 Pulse 171 Resp 22 22 B/P (MAP) 124/75 (91) Pulse Ox 96 O2 Delivery Nasal Cannula Nasal Cannula Nasal Cannula Nasal Cannula O2 Flow Rate 2.0 3.0 3.0 3.0 03/05/18 03/05/18 03/05/18 03/05/18 09:20 09:20 09:22 09:22 Pulse 171 171 171 Resp 24 B/P (MAP) 124/75 124/75 124/75 O2 Delivery Nasal Cannula O2 Flow Rate 3.0 03/05/18 03/05/18 03/05/18 03/05/18 10:20 11:00 11:14 12:40 Temp 98.0 98.0 Pulse 73 Resp 22 16 20 B/P (MAP) 125/77 (93) Pulse Ox 95 97 O2 Delivery Nasal Cannula Nasal Cannula Nasal Cannula Nasal Cannula O2 Flow Rate 3.0 3.0 2.0 3.0 Intake and Output 03/04/18 03/04/18 03/05/18 15:00 23:00 07:00 Intake Total 250 ml 2000 ml Balance 250 ml 2000 ml Nutrition Consultation Dietary Evaluation: Recommendations by RD: Increase Calorie Intake, Protein supplementation Comments: offer supplement of choice/ encourage po intake Expected Outcomes/Goals: to meet > 75% est nutr needs Interpretation of weight loss: >10% in 6 months Malnutrition Findings: Weight Status: Appropriate JUNG CONNELL MD Mar 05, 2018 14:11
[2018-03-05] MEDS: ACETAMINOPHEN 325 MG TABLET. PO PRN (15:22)
[2018-03-05] MEDS: BENZOCAINE/MENTHOL LOZENGE. PO PRN ×2 (15:27→20:58)
[2018-03-05] MEDS: AMINO AC 3%/ELECTROLYTE/GLYCER 1,000 ML IV SCH (18:30)
[2018-03-05] MEDS: ONDANSETRON PF 4 MG/2 ML VIAL. IV PRN (20:56)
[2018-03-05] MEDS: PATCH REMOVAL. MC SCH (20:56)
[2018-03-05] MEDS: MIRTAZAPINE 7.5 MG TABLET. PO SCH (20:57)
[2018-03-05] MEDS: SENNOSIDES 8.6 MG TABLET PO PRN (23:01)
[2018-03-06] MEDS: oxyCODONE/APAP 10/325 1 TAB TABLET PO PRN ×2 (00:59→13:27)
[2018-03-06] MEDS: ONDANSETRON PF 4 MG/2 ML VIAL. IV PRN ×3 (02:51→18:00)
[2018-03-06 03:00] VITALS: BP 135/71
[2018-03-06 07:00] VITALS: BP 129/75
[2018-03-06 07:18] LABS: BASO # 0.1 x10^3/uL (0.0-0.2); BASO % 1 % (0-3); CALCIUM 9.7 mg/dL (8.5-10.1); CREATININE 0.5 mg/dL (0.6-1.0); EOS # 0.2 x10^3/uL (0.0-0.7); EOS % 1 % (0-3); GFR 123.1; HEMATOCRIT 28.8 % (36.0-47.0); HEMOGLOBIN 9.5 g/dL (12.0-15.5); LYMPH # 4.4 x10^3/uL (1.0-4.8); LYMPH % 25 % (24-48); MEAN CORPUSCULAR HEMOGLOBIN 26 pg (25-35); MEAN CORPUSCULAR HGB CONC 33 g/dL (31-37); MEAN CORPUSCULAR VOLUME 79 fL (79-100); MONO # 1.7 x10^3/uL (0.0-1.1); MONO % 10 % (0-9); NEUT # 10.8 x10^3uL (1.8-7.7); NEUT % 63 % (31-73); PLATELET COUNT 493 x10^3/uL (140-400); POTASSIUM 3.5 mmol/L (3.5-5.1); RED BLOOD COUNT 3.66 x10^6/uL (3.50-5.40); RED CELL DISTRIBUTION WIDTH 21.1 % (11.5-14.5); WHITE BLOOD COUNT 17.2 x10^3/uL (4.0-11.0)
[2018-03-06] MEDS: IPRATRPIUM/ALBUTEROL 0.5/2.5MG 3 ML NEBU. NEB SCH ×4 (07:36→20:19)
--- NOTE | 2018-03-06 08:09 | RAD ---
Portable chest, 03/06/2018: HISTORY: Pneumonia Comparison is made to a study from 05/26/2017. The heart size is normal. There is aortic atherosclerosis. Mild streaky basilar opacities have developed. No definite pleural fluid is seen. There are numerous old healed bilateral rib fractures. A surgical plate and screws is evident in the lower cervical spine. There is a moderate thoracolumbar scoliosis with moderate multilevel degenerative change. IMPRESSION: Mild streaky bibasilar atelectasis and/or pneumonitis. Electronically signed by: Zana Leger MD (03/06/2018 8:05 AM) [facility]
[2018-03-06] MEDS: LACTOBACILLUS RHAMNOSUS GG 1 CAPSULE. PO SCH ×2 (08:37→20:36)
[2018-03-06] MEDS: LUBIPROSTONE 8 MCG CAPSULE PO SCH ×2 (08:37→17:11)
[2018-03-06] MEDS: GABAPENTIN 300 MG CAPSULE. PO SCH ×2 (08:40→20:35)
[2018-03-06] MEDS: CYANOCOBALAMIN (VITAMIN B-12) 1,000 MCG TABLET. PO SCH (08:40)
[2018-03-06] MEDS: APIXABAN 5 MG TABLET. PO SCH ×2 (08:40→20:36)
[2018-03-06] MEDS: CITALOPRAM 20 MG TABLET. PO SCH (08:42)
[2018-03-06] MEDS: PANTOPRAZOLE 40 MG TABLET.DR. PO SCH ×2 (08:42→17:11)
[2018-03-06] MEDS: METOPROLOL TART IMMED RELEASE 25 MG TABLET. PO SCH ×2 (08:42→20:37)
[2018-03-06] MEDS: LISINOPRIL 10 MG TABLET PO SCH (08:42)
[2018-03-06] MEDS: LIDOCAINE (700MG/PATCH) PATCH. TD SCH (08:44)
--- NOTE | 2018-03-06 09:20 | PDOC ---
PULMONARY PROGRESS NOTES Subjective pt at times soa Vitals Vital Signs Date Time Temp Pulse Resp B/P (MAP) Pulse Ox O2 Delivery O2 Flow Rate FiO2 03/06/18 08:43 68 129/75 03/06/18 08:00 16 Nasal Cannula 2.0 03/06/18 07:38 92 03/06/18 07:00 99.1 99.1 General: Alert Lungs: Crackles, Other Cardiovascular: S1 Abdomen: Soft Neuro Exam: Alert Extremities: No Edema Skin: Warm Labs Laboratory Tests Test 03/05/18 04:15 03/06/18 04:30 White Blood Count 19.1 x10^3/uL (4.0-11.0) 17.2 x10^3/uL (4.0-11.0) Red Blood Count 3.50 x10^6/uL (3.50-5.40) 3.66 x10^6/uL (3.50-5.40) Hemoglobin 9.3 g/dL (12.0-15.5) 9.5 g/dL (12.0-15.5) Hematocrit 27.8 % (36.0-47.0) 28.8 % (36.0-47.0) Mean Corpuscular Volume 79 fL (79-100) 79 fL (79-100) Mean Corpuscular Hemoglobin 27 pg (25-35) 26 pg (25-35) Mean Corpuscular Hemoglobin Concent 34 g/dL (31-37) 33 g/dL (31-37) Red Cell Distribution Width 21.5 % (11.5-14.5) 21.1 % (11.5-14.5) Platelet Count 457 x10^3/uL (140-400) 493 x10^3/uL (140-400) Neutrophils (%) (Auto) 72 % (31-73) 63 % (31-73) Lymphocytes (%) (Auto) 14 % (24-48) 25 % (24-48) Monocytes (%) (Auto) 13 % (0-9) 10 % (0-9) Eosinophils (%) (Auto) 2 % (0-3) 1 % (0-3) Basophils (%) (Auto) 0 % (0-3) 1 % (0-3) Neutrophils # (Auto) 13.6 x10^3uL (1.8-7.7) 10.8 x10^3uL (1.8-7.7) Lymphocytes # (Auto) 2.6 x10^3/uL (1.0-4.8) 4.4 x10^3/uL (1.0-4.8) Monocytes # (Auto) 2.4 x10^3/uL (0.0-1.1) 1.7 x10^3/uL (0.0-1.1) Eosinophils # (Auto) 0.4 x10^3/uL (0.0-0.7) 0.2 x10^3/uL (0.0-0.7) Basophils # (Auto) 0.0 x10^3/uL (0.0-0.2) 0.1 x10^3/uL (0.0-0.2) Sodium Level 134 mmol/L (136-145) 134 mmol/L (136-145) Potassium Level 3.5 mmol/L (3.5-5.1) 3.5 mmol/L (3.5-5.1) Chloride Level 100 mmol/L (98-107) 99 mmol/L (98-107) Carbon Dioxide Level 27 mmol/L (21-32) 26 mmol/L (21-32) Anion Gap 7 (6-14) 9 (6-14) Blood Urea Nitrogen 4 mg/dL (7-20) 5 mg/dL (7-20) Creatinine 0.4 mg/dL (0.6-1.0) 0.5 mg/dL (0.6-1.0) Estimated GFR (Cockcroft-Gault) 159.2 123.1 Glucose Level 92 mg/dL (70-99) 102 mg/dL (70-99) Calcium Level 9.1 mg/dL (8.5-10.1) 9.7 mg/dL (8.5-10.1) Laboratory Tests Test 03/06/18 04:30 White Blood Count 17.2 x10^3/uL (4.0-11.0) Red Blood Count 3.66 x10^6/uL (3.50-5.40) Hemoglobin 9.5 g/dL (12.0-15.5) Hematocrit 28.8 % (36.0-47.0) Mean Corpuscular Volume 79 fL (79-100) Mean Corpuscular Hemoglobin 26 pg (25-35) Mean Corpuscular Hemoglobin Concent 33 g/dL (31-37) Red Cell Distribution Width 21.1 % (11.5-14.5) Platelet Count 493 x10^3/uL (140-400) Neutrophils (%) (Auto) 63 % (31-73) Lymphocytes (%) (Auto) 25 % (24-48) Monocytes (%) (Auto) 10 % (0-9) Eosinophils (%) (Auto) 1 % (0-3) Basophils (%) (Auto) 1 % (0-3) Neutrophils # (Auto) 10.8 x10^3uL (1.8-7.7) Lymphocytes # (Auto) 4.4 x10^3/uL (1.0-4.8) Monocytes # (Auto) 1.7 x10^3/uL (0.0-1.1) Eosinophils # (Auto) 0.2 x10^3/uL (0.0-0.7) Basophils # (Auto) 0.1 x10^3/uL (0.0-0.2) Sodium Level 134 mmol/L (136-145) Potassium Level 3.5 mmol/L (3.5-5.1) Chloride Level 99 mmol/L (98-107) Carbon Dioxide Level 26 mmol/L (21-32) Anion Gap 9 (6-14) Blood Urea Nitrogen 5 mg/dL (7-20) Creatinine 0.5 mg/dL (0.6-1.0) Estimated GFR (Cockcroft-Gault) 123.1 Glucose Level 102 mg/dL (70-99) Calcium Level 9.7 mg/dL (8.5-10.1) Medications Active Scripts Medications Dose Route/Sig Max Daily Dose Days Date Category Dose Instructions Senokot (Sennosides) 8.6 Mg Tablet 1 Tab PO PRN BID 03/03/18 Reported Mirtazapine 15 Mg Tablet 7.5 Mg PO QHS 03/03/18 Reported Milk Of Magnesia (Magnesium Hydroxide) 2,400 Mg/10 Ml Oral.susp 2,400 Mg PO 03/03/18 Reported Cardizem Cd (Diltiazem Hcl) 360 Mg Cap.er.24h 300 Mg PO BID 03/03/18 Reported Cyanocobalamin Injection (Cyanocobalamin (Vitamin B-12)) 1,000 Mcg/1 Ml Vial 1 Ml IM QMONTH 03/03/18 Reported Vitamin B-12 (Cyanocobalamin (Vitamin B-12)) 1,000 Mcg Tablet 1 Tab PO DAILY 03/03/18 Reported Alum-Mag Hydroxide-Simeth Liq (Mag Hydrox/Al Hydrox/Simeth) 360 Ml Oral.susp 360 Ml PO 03/03/18 Reported Albuterol Sulfate Conc Neb Soln (Albuterol Sulfate) 2.5 Mg/0.5 Ml Vial.neb 1 Vial NEB Q6HRS 03/03/18 Reported Metoprolol Tartrate 25 Mg Tablet 1 Tab PO DAILY 03/03/18 Reported Melatonin 3 Mg Tablet 1 Tab PO QHS 03/03/18 Reported Lidocaine 1 Each Adh..patch 1 Each TP 03/03/18 Reported Levsin (Hyoscyamine Sulfate) 0.125 Mg Tablet 1 Tab PO TID PRN 03/03/18 Reported Percocet 10-325 Mg Tablet (Oxycodone/Acetaminophen) 1 Each Tablet 1 Tab PO BID PRN 03/03/18 Reported Amitiza (Lubiprostone) 24 Mcg Capsule 1 Cap PO BID 03/03/18 Reported Acetaminophen 500 Mg Tablet 2 Tab PO Q6HRS 03/03/18 Reported Lisinopril 10 Mg Tablet 1 Tab PO DAILY 05/30/17 Rx Eliquis (Apixaban) 5 Mg Tablet 5 Mg PO BID 05/26/17 Reported Gabapentin 300 Mg Capsule 300 Mg PO BID 05/26/17 Reported Tramadol Hcl 50 Mg Tablet 50 Tab PO PRN Q6HRS 02/09/15 Rx Celexa (Citalopram Hydrobromide) 40 Mg Tablet 40 Mg PO DAILY 09/26/14 Rx Omeprazole 40 Mg Capsule.dr 40 Mg PO BID 02/04/14 Reported LAST DOSE GIVEN: DATE: today we use Pantaprozole (Protonix) TIME: 8:30 AM NEXT DOSE DUE: DATE: tomorrow morning Impression . 1. Abnormal CT chest consistent with pneumonia. 2. Cough with yellow sputum production and CT chest findings compatible with pneumonia, suspect gram-negative. 3. Underlying chronic obstructive pulmonary disease, which is with chronic hypoxic respiratory failure, on home oxygen at 3.5 liters, was currently on 2.5 liters. 4. Abdominal pain per PCP. 5. Aflutter today CT CHEST IMPRESSION: 1. There is right lower lobe infiltrate at the lung base and small right pleural effusion, also some patchy minimal right middle lobe infiltrate and subtle groundglass infiltrate of the left upper lobe. 2. 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 3. There is emphysema. 4. There is coronary calcification. Plan . ANTIBX PER ID PT EVALPRIOR TO D/C CXR NO WORSE BD GEORGIA BUCK MD Mar 06, 2018 09:20
[2018-03-06] MEDS: AMINO AC 3%/ELECTROLYTE/GLYCER 1,000 ML IV SCH ×2 (10:00→20:38)
--- NOTE | 2018-03-06 10:40 | PDOC ---
PROGRESS NOTES Chief Complaint Chief Complaint left rib cage pain with old fx likely AMS, metabolic encephalopathy likely CAP unsteady gait with frequent fall chronic constipation cough hyponatremia failure to thrive leukocytosis sepsis fibromyalgia htn Pfib on eliquis h/o drug seeking behavior chronic pain on tramadol mild malnutrition tobaccoism plan: pulm consulted check Chest ct showed some infiltrate and unhealed fx cont some home meds, abd CT neg. pain control bcx pending D/C levaquin ivf cont nutrition consult, ID consult IV CEFIPIME, ORAL DOXY PTOT cont eliquis for now, resume metoprolol, cardizem. increase metoprolol today given tachycardia, check echo, card consult duoneb, cough meds sw FOR POSSIBLE rehab History of Present Illness History of Present Illness ROS: no fever, chills, sob or chest pain COUGH A lot, c/o left rib cage pain with tenderness slightly better, but still looks very weak as per nurse, it could be pt's baseline wbc 22 down to 19 Na 129 better to 134 03/05: rapid afib at 170s for 1h , better with po meds Vitals Vitals Vital Signs Date Time Temp Pulse Resp B/P (MAP) Pulse Ox O2 Delivery O2 Flow Rate FiO2 03/06/18 08:43 68 129/75 03/06/18 08:00 Nasal Cannula 3.0 03/06/18 08:00 16 03/06/18 07:38 92 03/06/18 07:00 99.1 99.1 Physical Exam Physical Exam left rib cage + tenderness General: Alert, Oriented X3, Cooperative Heart: Regular rate, Normal S1, Normal S2, Other (irregular) Lungs: Clear, Wheezing, Other (bl moderate decreased bs) Abdomen: Normal bowel sounds, Soft Extremities: No clubbing, No cyanosis Skin: No rashes Labs LABS Laboratory Tests Test 03/06/18 04:30 White Blood Count 17.2 x10^3/uL (4.0-11.0) Red Blood Count 3.66 x10^6/uL (3.50-5.40) Hemoglobin 9.5 g/dL (12.0-15.5) Hematocrit 28.8 % (36.0-47.0) Mean Corpuscular Volume 79 fL (79-100) Mean Corpuscular Hemoglobin 26 pg (25-35) Mean Corpuscular Hemoglobin Concent 33 g/dL (31-37) Red Cell Distribution Width 21.1 % (11.5-14.5) Platelet Count 493 x10^3/uL (140-400) Neutrophils (%) (Auto) 63 % (31-73) Lymphocytes (%) (Auto) 25 % (24-48) Monocytes (%) (Auto) 10 % (0-9) Eosinophils (%) (Auto) 1 % (0-3) Basophils (%) (Auto) 1 % (0-3) Neutrophils # (Auto) 10.8 x10^3uL (1.8-7.7) Lymphocytes # (Auto) 4.4 x10^3/uL (1.0-4.8) Monocytes # (Auto) 1.7 x10^3/uL (0.0-1.1) Eosinophils # (Auto) 0.2 x10^3/uL (0.0-0.7) Basophils # (Auto) 0.1 x10^3/uL (0.0-0.2) Sodium Level 134 mmol/L (136-145) Potassium Level 3.5 mmol/L (3.5-5.1) Chloride Level 99 mmol/L (98-107) Carbon Dioxide Level 26 mmol/L (21-32) Anion Gap 9 (6-14) Blood Urea Nitrogen 5 mg/dL (7-20) Creatinine 0.5 mg/dL (0.6-1.0) Estimated GFR (Cockcroft-Gault) 123.1 Glucose Level 102 mg/dL (70-99) Calcium Level 9.7 mg/dL (8.5-10.1) Assessment and Plan Assessmemt and Plan Problems Medical Problems: (1) Abdominal pain Status: Acute (2) Failure to thrive Status: Acute (3) Hyponatremia Status: Acute (4) Leukocytosis Status: Acute Comment Review of Relevant I have reviewed the following items tracy (where applicable) has been applied. Labs Laboratory Tests Test 03/05/18 04:15 03/06/18 04:30 White Blood Count 19.1 x10^3/uL (4.0-11.0) 17.2 x10^3/uL (4.0-11.0) Red Blood Count 3.50 x10^6/uL (3.50-5.40) 3.66 x10^6/uL (3.50-5.40) Hemoglobin 9.3 g/dL (12.0-15.5) 9.5 g/dL (12.0-15.5) Hematocrit 27.8 % (36.0-47.0) 28.8 % (36.0-47.0) Mean Corpuscular Volume 79 fL (79-100) 79 fL (79-100) Mean Corpuscular Hemoglobin 27 pg (25-35) 26 pg (25-35) Mean Corpuscular Hemoglobin Concent 34 g/dL (31-37) 33 g/dL (31-37) Red Cell Distribution Width 21.5 % (11.5-14.5) 21.1 % (11.5-14.5) Platelet Count 457 x10^3/uL (140-400) 493 x10^3/uL (140-400) Neutrophils (%) (Auto) 72 % (31-73) 63 % (31-73) Lymphocytes (%) (Auto) 14 % (24-48) 25 % (24-48) Monocytes (%) (Auto) 13 % (0-9) 10 % (0-9) Eosinophils (%) (Auto) 2 % (0-3) 1 % (0-3) Basophils (%) (Auto) 0 % (0-3) 1 % (0-3) Neutrophils # (Auto) 13.6 x10^3uL (1.8-7.7) 10.8 x10^3uL (1.8-7.7) Lymphocytes # (Auto) 2.6 x10^3/uL (1.0-4.8) 4.4 x10^3/uL (1.0-4.8) Monocytes # (Auto) 2.4 x10^3/uL (0.0-1.1) 1.7 x10^3/uL (0.0-1.1) Eosinophils # (Auto) 0.4 x10^3/uL (0.0-0.7) 0.2 x10^3/uL (0.0-0.7) Basophils # (Auto) 0.0 x10^3/uL (0.0-0.2) 0.1 x10^3/uL (0.0-0.2) Sodium Level 134 mmol/L (136-145) 134 mmol/L (136-145) Potassium Level 3.5 mmol/L (3.5-5.1) 3.5 mmol/L (3.5-5.1) Chloride Level 100 mmol/L (98-107) 99 mmol/L (98-107) Carbon Dioxide Level 27 mmol/L (21-32) 26 mmol/L (21-32) Anion Gap 7 (6-14) 9 (6-14) Blood Urea Nitrogen 4 mg/dL (7-20) 5 mg/dL (7-20) Creatinine 0.4 mg/dL (0.6-1.0) 0.5 mg/dL (0.6-1.0) Estimated GFR (Cockcroft-Gault) 159.2 123.1 Glucose Level 92 mg/dL (70-99) 102 mg/dL (70-99) Calcium Level 9.1 mg/dL (8.5-10.1) 9.7 mg/dL (8.5-10.1) Laboratory Tests Test 03/06/18 04:30 White Blood Count 17.2 x10^3/uL (4.0-11.0) Red Blood Count 3.66 x10^6/uL (3.50-5.40) Hemoglobin 9.5 g/dL (12.0-15.5) Hematocrit 28.8 % (36.0-47.0) Mean Corpuscular Volume 79 fL (79-100) Mean Corpuscular Hemoglobin 26 pg (25-35) Mean Corpuscular Hemoglobin Concent 33 g/dL (31-37) Red Cell Distribution Width 21.1 % (11.5-14.5) Platelet Count 493 x10^3/uL (140-400) Neutrophils (%) (Auto) 63 % (31-73) Lymphocytes (%) (Auto) 25 % (24-48) Monocytes (%) (Auto) 10 % (0-9) Eosinophils (%) (Auto) 1 % (0-3) Basophils (%) (Auto) 1 % (0-3) Neutrophils # (Auto) 10.8 x10^3uL (1.8-7.7) Lymphocytes # (Auto) 4.4 x10^3/uL (1.0-4.8) Monocytes # (Auto) 1.7 x10^3/uL (0.0-1.1) Eosinophils # (Auto) 0.2 x10^3/uL (0.0-0.7) Basophils # (Auto) 0.1 x10^3/uL (0.0-0.2) Sodium Level 134 mmol/L (136-145) Potassium Level 3.5 mmol/L (3.5-5.1) Chloride Level 99 mmol/L (98-107) Carbon Dioxide Level 26 mmol/L (21-32) Anion Gap 9 (6-14) Blood Urea Nitrogen 5 mg/dL (7-20) Creatinine 0.5 mg/dL (0.6-1.0) Estimated GFR (Cockcroft-Gault) 123.1 Glucose Level 102 mg/dL (70-99) Calcium Level 9.7 mg/dL (8.5-10.1) Microbiology 03/03/18 Blood Culture - Preliminary, Resulted NO GROWTH AFTER 2 DAYS Medications Current Medications Ondansetron HCl (Zofran) 4 mg 1X ONCE IV Last administered on 03/02/18at 21:17 ; Start 03/02/18 at 20:30; Stop 03/02/18 at 20:31; Status DC Famotidine (Pepcid Vial) 20 mg 1X ONCE IVP Last administered on 03/02/18at 21: 17; Start 03/02/18 at 20:30; Stop 03/02/18 at 20:31; Status DC Sodium Chloride 1,000 ml @ 1,000 mls/hr 1X ONCE IV Last administered on at 21:17; Start 03/02/18 at 20:30; Stop 03/02/18 at 21:29; Status DC Fentanyl Citrate (Fentanyl 2ml Vial) 50 mcg 1X ONCE IV Last administered on at 21:16; Start 03/02/18 at 20:45; Stop 03/02/18 at 20:46; Status DC Iohexol (Omnipaque 300 Mg/ml) 75 ml 1X ONCE IV Last administered on 03/02/18at 20:45; Start 03/02/18 at 20:45; Stop 03/02/18 at 20:50; Status DC Iohexol (Omnipaque 240 Mg/ml) 30 ml 1X ONCE PO Last administered on 03/02/18at 20:45; Start 03/02/18 at 20:45; Stop 03/02/18 at 20:50; Status DC Ondansetron HCl (Zofran) 4 mg PRN Q8HRS PRN IV NAUSEA/VOMITING; Start 03/03/18 at 01:00; Stop 03/03/18 at 17:08; Status DC Apixaban (Eliquis) 5 mg BID PO Last administered on 03/06/18at 08:40; Start at 13:00 Lisinopril (Prinivil) 10 mg DAILY PO Last administered on 03/06/18 08:42; Start 03/03/18 at 13:00 Metoprolol Tartrate (Lopressor) 25 mg DAILY PO Last administered on 03/05/18at 09:20; Start 03/03/18 at 13:00; Stop 03/05/18 at 10:09; Status DC Oxycodone/ Acetaminophen (Percocet 10/325) 1 tab BID PRN PO SEVERE PAIN Last administered on 03/04/18at 12:41; Start 03/03/18 at 12:30; Stop 03/04/18 at 14:19 ; Status DC Tramadol HCl (Ultram) 2,500 mg PRN Q6HRS PO ; Start 03/03/18 at 12:30; Status UNV Citalopram Hydrobromide (CeleXA) 40 mg DAILY PO Last administered on 03/06/18at 08:42; Start 03/03/18 at 13:00 Gabapentin (Neurontin) 300 mg BID PO Last administered on 03/06/18at 08:40; Start 03/03/18 at 13:00 Lubiprostone (Amitiza) 24 mcg BIDWMEALS PO Last administered on 03/06/18at 08:37 ; Start 03/03/18 at 17:00 Non-Formulary Medication (Melatonin ) 1 tab QHS PO ; Start 03/03/18 at 21:00; Status UNV Pantoprazole Sodium (Protonix) 40 mg BIDAC PO Last administered on 03/06/18at 08 :42; Start 03/03/18 at 16:30 Acetaminophen (Tylenol) 650 mg PRN Q6HRS PRN PO FEVER Last administered on 9/23 /18at 15:22; Start 03/03/18 at 12:30 Ondansetron HCl (Zofran) 4 mg PRN Q6HRS PRN IV NAUSEA/VOMITING Last administered on 03/06/18at 08:51; Start 03/03/18 at 12:30 Morphine Sulfate (Morphine Sulfate) 2 mg PRN Q2HR PRN IV MODERATE TO SEVERE PAIN Last administered on 03/06/18at 07:33; Start 03/03/18 at 12:30 Tramadol HCl (Ultram) 50 mg PRN Q6HRS PRN PO MILD TO MODERATE PAIN; Start 03/03 at 12:30; Status UNV Docusate Sodium (Colace) 100 mg PRN DAILY PRN PO CONSTIPATION; Start 03/03/18 at 12:30; Status UNV Albuterol/ Ipratropium (Duoneb) 3 ml RTQID NEB Last administered on 03/06/18at 07:36; Start 03/03/18 at 13:00 Albuterol Sulfate (Ventolin Neb Soln) 2.5 mg PRN Q2HR PRN NEB SHORTNESS OF BREATH; Start 03/03/18 at 12:30 Guaifenesin (Mucinex) 600 mg BID PO Last administered on 03/06/18at 08:42; Start 03/03/18 at 13:00 Acetaminophen (Tylenol) 650 mg PRN Q6HRS PRN PO FEVER; Start 03/03/18 at 12:30 ; Status UNV Ondansetron HCl (Zofran) 4 mg PRN Q6HRS PRN IV NAUSEA/VOMITING; Start 03/03/18 at 12:30; Status UNV Morphine Sulfate (Morphine Sulfate) 2 mg PRN Q2HR PRN IV MODERATE TO SEVERE PAIN; Start 03/03/18 at 12:30; Status UNV Tramadol HCl (Ultram) 50 mg PRN Q6HRS PRN PO MILD TO MODERATE PAIN Last administered on 03/05/18at 20:58; Start 03/03/18 at 12:30 Docusate Sodium (Colace) 100 mg PRN DAILY PRN PO CONSTIPATION; Start 03/03/18 at 12:30 Sodium Chloride 1,000 ml @ 100 mls/hr Q10H IV Last administered on 03/05/18at 15:23; Start 03/03/18 at 13:00 Enoxaparin Sodium (Lovenox 40mg Syringe) 40 mg Q24H SQ ; Start 03/03/18 at 12:30 ; Status UNV Mirtazapine (Remeron) 7.5 mg QHS PO Last administered on 03/05/18 20:57; Start 03/03/18 at 21:00 Lidocaine (Lidoderm) 1 patch DAILY TD Last administered on 03/06/18 08:44; Start 03/03/18 at 13:00 Miscellaneous (Lidoderm Patch Removal) 1 ea QHS MC Last administered on 20:56; Start 03/03/18 at 21:00 Levofloxacin/ Dextrose 150 ml @ 100 mls/hr Q24H IV Last administered on 17:56; Start 03/03/18 at 16:00 Lactobacillus Rhamnosus (Culturelle) 1 cap BID PO Last administered on 08:37; Start 03/03/18 at 21:00 Throat Lozenges (Chloraseptic) 1 spray PRN Q2HR PRN PO SORE THROAT; Start 03/04 at 09:15 Throat Lozenges (Cepacol Sore Throat Lozenge) 1 judith PRN Q2HRS PRN PO SORE THROAT Last administered on 03/05/18 20:58; Start 03/04/18 at 09:15 Cyanocobalamin (Vitamin B-12) 1,000 mcg DAILY PO Last administered on 08:40; Start 03/05/18 at 09:00 Diltiazem HCl (Cardizem 24hr Cd) 300 mg DAILY PO Last administered on at 08:43; Start 03/04/18 at 11:00 Non-Formulary Medication (Mirtazapine ) 7.5 mg QHS PO ; Start 03/04/18 at 21:00 ; Status UNV Sennosides (Senna) 8.6 mg PRN BID PRN PO CONSTIPATION (2nd Choice) Last administered on 03/05/18 23:01; Start 03/04/18 at 11:00 Info (Anti-Coagulation Monitoring By Pharmacy) 1 each PRN DAILY PRN MC SEE COMMENTS Last administered on 03/05/18 13:31; Start 03/04/18 at 13:45 Oxycodone/ Acetaminophen (Percocet 10/325) 1 tab PRN BID PRN PO SEVERE PAIN Last administered on 03/06/18at 00:59; Start 03/04/18 at 14:30 Metoprolol Tartrate (Lopressor) 25 mg BID PO Last administered on 03/06/18at 08: 42; Start 03/05/18 at 21:00 Metoprolol Tartrate (Lopressor Vial) 5 mg 1X ONCE IVP ; Start 03/05/18 at 10:30 ; Stop 03/05/18 at 10:31; Status DC Amino Acids/ Glycerin/ Electrolytes 1,000 ml @ 80 mls/hr [id number] IV Last administered on 03/05/18at 18:30; Start 03/05/18 at 18:30 Active Scripts Active Lisinopril 10 Mg Tablet 1 Tab PO DAILY Tramadol Hcl 50 Mg Tablet 50 Tab PO PRN Q6HRS Celexa (Citalopram Hydrobromide) 40 Mg Tablet 40 Mg PO DAILY Reported Cardizem Cd (Diltiazem Hcl) 360 Mg Cap.er.24h 300 Mg PO DAILY Senokot (Sennosides) 8.6 Mg Tablet 1 Tab PO PRN BID Mirtazapine 15 Mg Tablet 7.5 Mg PO QHS Milk Of Magnesia (Magnesium Hydroxide) 2,400 Mg/10 Ml Oral.susp 2,400 Mg PO Cyanocobalamin Injection (Cyanocobalamin (Vitamin B-12)) 1,000 Mcg/1 Ml Vial 1 Ml IM QMONTH Vitamin B-12 (Cyanocobalamin (Vitamin B-12)) 1,000 Mcg Tablet 1 Tab PO DAILY Alum-Mag Hydroxide-Simeth Liq (Mag Hydrox/Al Hydrox/Simeth) 360 Ml Oral.susp 360 Ml PO Albuterol Sulfate Conc Neb Soln (Albuterol Sulfate) 2.5 Mg/0.5 Ml Vial.neb 1 Vial NEB Q6HRS Metoprolol Tartrate 25 Mg Tablet 1 Tab PO DAILY Melatonin 3 Mg Tablet 1 Tab PO QHS Lidocaine 1 Each Adh..patch 1 Each TP Levsin (Hyoscyamine Sulfate) 0.125 Mg Tablet 1 Tab PO TID PRN Percocet 10-325 Mg Tablet (Oxycodone/Acetaminophen) 1 Each Tablet 1 Tab PO BID PRN Amitiza (Lubiprostone) 24 Mcg Capsule 1 Cap PO BID Acetaminophen 500 Mg Tablet 2 Tab PO Q6HRS Eliquis (Apixaban) 5 Mg Tablet 5 Mg PO BID Gabapentin 300 Mg Capsule 300 Mg PO BID Omeprazole 40 Mg Capsule.dr 40 Mg PO BID LAST DOSE GIVEN: DATE: today we use Pantaprozole (Protonix) TIME: 8:30 AM NEXT DOSE DUE: DATE: tomorrow morning Vitals/I & O Vital Sign - Last 24 Hours 03/05/18 03/05/18 03/05/18 03/05/18 11:00 11:14 12:40 13:40 Temp 98.0 98.0 Pulse 73 Resp 16 20 B/P (MAP) 125/77 (93) Pulse Ox 95 97 O2 Delivery Nasal Cannula Nasal Cannula Nasal Cannula O2 Flow Rate 3.0 2.0 3.0 3.0 03/05/18 03/05/18 03/05/18 03/05/18 14:54 15:00 19:00 19:37 Temp 98.0 99.2 98.0 99.2 Pulse 92 100 Resp 16 18 B/P (MAP) 105/57 (73) 136/67 (90) Pulse Ox 94 95 97 O2 Delivery Nasal Cannula Nasal Cannula Nasal Cannula Nasal Cannula O2 Flow Rate 2.0 2.0 2.0 03/05/18 03/05/18 03/05/18 03/05/18 20:00 20:57 20:58 22:51 Temp 99.8 99.8 Pulse 100 104 Resp 17 18 B/P (MAP) 136/67 135/79 (97) Pulse Ox 97 O2 Delivery Nasal Cannula Nasal Cannula Nasal Cannula O2 Flow Rate 3.0 3.0 2.0 03/05/18 03/06/18 03/06/18 03/06/18 22:58 00:59 02:00 03:00 Temp 98.9 98.9 Pulse 91 Resp 17 17 17 18 B/P (MAP) 135/71 (92) Pulse Ox 96 O2 Delivery Nasal Cannula Nasal Cannula Nasal Cannula Nasal Cannula O2 Flow Rate 3.0 2.0 03/06/18 03/06/18 03/06/18 03/06/18 07:00 07:33 07:38 08:00 Temp 99.1 99.1 Pulse 108 Resp 18 18 16 B/P (MAP) 129/75 (93) Pulse Ox 94 92 O2 Delivery Nasal Cannula Nasal Cannula Nasal Cannula Nasal Cannula O2 Flow Rate 2.0 3.0 3.0 2.0 03/06/18 03/06/18 03/06/18 03/06/18 08:00 08:42 08:42 08:43 Pulse 68 68 68 B/P (MAP) 129/75 129/75 129/75 O2 Delivery Nasal Cannula O2 Flow Rate 3.0 Intake and Output 03/05/18 03/05/18 03/06/18 15:00 23:00 07:00 Intake Total 680 ml Balance 680 ml Nutrition Consultation Dietary Evaluation: Recommendations by RD: Increase Calorie Intake, Protein supplementation Comments: offer supplement of choice/ encourage po intake Expected Outcomes/Goals: to meet > 75% est nutr needs Interpretation of weight loss: >10% in 6 months Malnutrition Findings: Weight Status: Appropriate TRINH ALTMAN MD Mar 06, 2018 10:40
[2018-03-06] MEDS: traMADol 50 MG TABLET PO PRN ×2 (10:46→17:11)
[2018-03-06 11:00] VITALS: BP 134/71
[2018-03-06] MEDS: IV NORMAL SALINE 1000ML BAG 1,000 ML IV SCH ×2 (11:00→18:02)
--- NOTE | 2018-03-06 11:20 | PDOC ---
Infectious Disease Note Vital Sign Vital Signs Vital Signs Date Time Temp Pulse Resp B/P (MAP) Pulse Ox O2 Delivery O2 Flow Rate FiO2 03/06/18 10:46 16 Nasal Cannula 3.0 03/06/18 08:43 68 129/75 03/06/18 07:38 92 03/06/18 07:00 99.1 99.1 Physical Exam PHYSICAL EXAM left rib cage + tenderness Labs Lab Laboratory Tests Test 03/06/18 04:30 White Blood Count 17.2 x10^3/uL (4.0-11.0) Red Blood Count 3.66 x10^6/uL (3.50-5.40) Hemoglobin 9.5 g/dL (12.0-15.5) Hematocrit 28.8 % (36.0-47.0) Mean Corpuscular Volume 79 fL (79-100) Mean Corpuscular Hemoglobin 26 pg (25-35) Mean Corpuscular Hemoglobin Concent 33 g/dL (31-37) Red Cell Distribution Width 21.1 % (11.5-14.5) Platelet Count 493 x10^3/uL (140-400) Neutrophils (%) (Auto) 63 % (31-73) Lymphocytes (%) (Auto) 25 % (24-48) Monocytes (%) (Auto) 10 % (0-9) Eosinophils (%) (Auto) 1 % (0-3) Basophils (%) (Auto) 1 % (0-3) Neutrophils # (Auto) 10.8 x10^3uL (1.8-7.7) Lymphocytes # (Auto) 4.4 x10^3/uL (1.0-4.8) Monocytes # (Auto) 1.7 x10^3/uL (0.0-1.1) Eosinophils # (Auto) 0.2 x10^3/uL (0.0-0.7) Basophils # (Auto) 0.1 x10^3/uL (0.0-0.2) Sodium Level 134 mmol/L (136-145) Potassium Level 3.5 mmol/L (3.5-5.1) Chloride Level 99 mmol/L (98-107) Carbon Dioxide Level 26 mmol/L (21-32) Anion Gap 9 (6-14) Blood Urea Nitrogen 5 mg/dL (7-20) Creatinine 0.5 mg/dL (0.6-1.0) Estimated GFR (Cockcroft-Gault) 123.1 Glucose Level 102 mg/dL (70-99) Calcium Level 9.7 mg/dL (8.5-10.1) Micro Microbiology 03/03/18 Blood Culture - Preliminary, Resulted NO GROWTH AFTER 2 DAYS Objective Assessment AECOPD Leukocytosis Afib PCN allergy - has tolerated Keflex. ? tolerated Amox Thrush Failure to thrive Ongoing tobacco abuse Plan Plan of Care Discontinue Levoflox (3 doses already) Change to Doxy and Cefepime Add Nystatin F/u labs and response Await pulm f/u still significant wheeze Check strep and legionella antigens D/w family Thank you # [id number] RAMON SÁNCHEZ MD Mar 06, 2018 11:19
--- NOTE | 2018-03-06 12:24 | PDOC2 ---
CARDIAC CONSULT DATE OF CONSULT Date of Consult DATE: 03/06/18 TIME: 12:14 REASON FOR CONSULT Reason for Consult: atrial flutter REFERRING PHYSICIAN Referring Physician: Kale SOURCE Source: Chart review HISTORY OF PRESENT ILLNESS HISTORY OF PRESENT ILLNESS 67 year old female admitted through the ER for abdominal pain and was found to be in atrial fibrillation which has since converted to SR. History of atrial flutter. Hyponatremic POA. EKG with atrial fib/flutter POA. Patient is very drowsy and falls asleep to questioning. Reason for Visit: atrial flutter PAST MEDICAL HISTORY Past Medical History Past Medical History Cardiovascular: HTN, HLP, [place], atrial flutter Pulmonary: COPD with home oxygen CENTRAL NERVOUS SYSTEM: Migraine, CVA GI: Constipation, Irritable bowel disease, GERD, Other (chronic opioid use) Heme/Onc: Anemia NOS Psych: Anxiety, Depression Musculoskeletal: Osteoarthritis, chronic back pain Rheumatologic: Fibromyalgia Renal/: No pertinent hx Endocrine: No pertinent hx Dermatology: No pertinent hx PAST SURGICAL HISTORY Past Surgical History Cholecystectomy, Hysterectomy, T & A. appendectomy FAMILY HISTORY Family History: Cancer (lung ), Coronary Artery Disease, Hypertension SOCIAL HISTORY Smoke: 1 pack per day ALCOHOL: none Lives: with Family CURRENT MEDICATIONS CURRENT MEDICATIONS Current Medications Medications (Trade) Dose Ordered Sig/Ciera Route PRN Reason Start Time Stop Time Status Last Admin Dose Admin Metoprolol Tartrate (Lopressor) 25 mg BID PO 03/05/18 21:00 03/06/18 08:42 Amino Acids/ Glycerin/ Electrolytes 1,000 ml @ 80 mls/hr [id number] IV 03/05/18 18:30 03/06/18 10:00 ALLERGIES ALLERGIES: Coded Allergies: Penicillins (Verified Allergy, Intermediate, Hives, 01/14/15) ROS General: YES: Fatigue, Malaise PSYCHOLOGICAL ROS: YES: Depression; No: Anxiety, Behavioral Disorder, Concentration difficultie, Decreased libido , Disorientation, Hallucinations, Hostility, Irritablity, Memory difficulties, Mood Swings, Obsessive thoughts, Physical abuse, Sexual abuse, Sleep disturbances, Suicidal ideation, Other Eyes: No Blurry vision, No Decreased vision, No Double vision, No Dry eyes, No Excessive tearing, No Eye Pain, No Itchy Eyes, No Loss of vision, No Photophobia , No Scotomata, No Uses contacts, No Uses glasses, No Other HEENT: No: Heacaches, Visual Changes, Hearing change, Nasal congestion, Nasal discharge, Oral lesions, Sinus pain, Sore Throat, Epistaxis, Sneezing, Snoring, Tinnitus, Vertigo, Vocal changes, Other ALLERGY AND IMMUNOLOGY: No: Hives, Insect Bite Sensitivity, Itchy/Watery Eyes, Nasal Congestion, Post Nasal Drip, Seasonal Allergies, Other Hematological and Lymphatic: No: Bleeding Problems, Blood Clots, Blood Transfusions, Brusing, Night Sweats, Pallor, Swollen Lymph Nodes, Other ENDOCRINE: No: Breast Changes, Galactorrhea, Hair Pattern Changes, Hot Flashes , Malaise/lethargy, Mood Swings, Palpitations, Polydipsia/polyuria, Skin Changes , Temperature Intolerance, Unexpected Weight Changes, Other Respiratory: No: Cough, Hemoptysis, Orthopnea, Pleuritic Pain, Shortness of breath, SOB with excertion, Sputum Changes, Stridor, Tachypnea, Wheezing, Other Cardiovascular: No Chest Pain, No Palpitations, No Orthopnea, No Paroxysmal Noc. Dyspnea, No Edema, No Lt Headedness, No Other Gastrointestinal: Yes Abdominal Pain; No Nausea, No Vomiting, No Diarrhea, No Constipation, No Melena, No Hematochezia, No Other Genitourinary: No Dysuria, No Frequency, No Incontinence, No Hematuria, No Retention, No Discharge, No Urgency, No Pain, No Flank Pain, No Other Musculoskeletal: No Gait Disturbance, No Joint Pain, No Joint Stiffness, No Joint Swelling, No Muscle Pain, No Muscular Weakness, No Pain In:, No Swelling In:, No Other Neurological: No Behavorial Changes, No Bowel/Bladder ControlChng, No Confusion , No Dizziness, No Gait Disturbance, No Headaches, No Impaired Coord/balance, No Memory Loss, No Numbness/Tingling, No Seizures, No Speech Problems, No Tremors, No Visual Changes, No Weakness, No Other Skin: No Dry Skin, No Eczema, No Hair Changes, No Lumps, No Mole Changes, No Mottling, No Nail Changes, No Pruritus, No Rash, No Skin Lesion Changes, No Other, No Acne PHYSICAL EXAM General: Cooperative, No acute distress HEENT: Atraumatic Lungs: Other (coarse with rhonchi) Heart: Normal S1, Normal S2, No murmurs Abdomen: Soft Extremities: No edema Skin: No rashes Neuro: Normal speech Psych/Mental Status: Mental status NL, Mood NL MUSCULOSKELETAL: No deformity VITALS VITALS Vital Signs Date Time Temp Pulse Resp B/P (MAP) Pulse Ox O2 Delivery O2 Flow Rate FiO2 03/06/18 11:00 98.6 66 16 134/71 (92) 94 Nasal Cannula 2.0 98.6 LABS Lab: Laboratory Tests Test 03/06/18 04:30 White Blood Count 17.2 x10^3/uL (4.0-11.0) Red Blood Count 3.66 x10^6/uL (3.50-5.40) Hemoglobin 9.5 g/dL (12.0-15.5) Hematocrit 28.8 % (36.0-47.0) Mean Corpuscular Volume 79 fL (79-100) Mean Corpuscular Hemoglobin 26 pg (25-35) Mean Corpuscular Hemoglobin Concent 33 g/dL (31-37) Red Cell Distribution Width 21.1 % (11.5-14.5) Platelet Count 493 x10^3/uL (140-400) Neutrophils (%) (Auto) 63 % (31-73) Lymphocytes (%) (Auto) 25 % (24-48) Monocytes (%) (Auto) 10 % (0-9) Eosinophils (%) (Auto) 1 % (0-3) Basophils (%) (Auto) 1 % (0-3) Neutrophils # (Auto) 10.8 x10^3uL (1.8-7.7) Lymphocytes # (Auto) 4.4 x10^3/uL (1.0-4.8) Monocytes # (Auto) 1.7 x10^3/uL (0.0-1.1) Eosinophils # (Auto) 0.2 x10^3/uL (0.0-0.7) Basophils # (Auto) 0.1 x10^3/uL (0.0-0.2) Sodium Level 134 mmol/L (136-145) Potassium Level 3.5 mmol/L (3.5-5.1) Chloride Level 99 mmol/L (98-107) Carbon Dioxide Level 26 mmol/L (21-32) Anion Gap 9 (6-14) Blood Urea Nitrogen 5 mg/dL (7-20) Creatinine 0.5 mg/dL (0.6-1.0) Estimated GFR (Cockcroft-Gault) 123.1 Glucose Level 102 mg/dL (70-99) Calcium Level 9.7 mg/dL (8.5-10.1) IMAGES IMAGES 03/03/2018: CT chest: IMPRESSION: 1. There is right lower lobe infiltrate at the lung base and small right pleural effusion, also some patchy minimal right middle lobe infiltrate and subtle groundglass infiltrate of the left upper lobe. 2. 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 3. There is emphysema. 4. There is coronary calcification. EKG EKG atrial flutter; rate controlled ECHOCARDIOGRAM ECHOCARDIOGRAM 05/2017: TTE: The left ventricle is normal size. The left ventricular systolic function is normal and the ejection fraction is within normal range. Left veentricular ejection fraction is 55-60%. There is mild concentric left ventricular hypertrophy. Mildly aneurysmal interatrial septum present. There is no significant aortic valvular stenosis. Doppler and Color Flow revealed no significant aortic regurgitation. Doppler and Color-flow revealed mild mitral regurgitation. Doppler and Color Flow revealed mild tricuspid regurgitation. STRESS TEST STRESS TEST 11/28/2014: MPI: 1. No electrocardiographic changes suggestive of myocardial ischemia with pharmacological stress. 2. No significant perfusion defects to suggest myocardial ischemia or scar. 3. Normal wall motion and wall thickening with an ejection fraction of 78%. 4. Scan indicates low risk for future cardiac events. ASSESSMENT/PLAN ASSESSMENT/PLAN 1. atrial fib/flutter --not new and has now converted --preserved LVEF on TTE 05/2017; repeat TTE pending --recommend K > 4 and Mg > 2 --continue CCB and BB for rate control 2. abdominal pain --defer to primary service 3. Hyponatremia 4. AECOPD with persistent tobacco use --defer to JOSE L Carroll APRN Mar 06, 2018 12:24
[2018-03-06] MEDS: DOXYCYCLINE HYCLATE 100 MG TABLET PO SCH ×2 (13:21→20:35)
[2018-03-06] MEDS: NYSTATIN 100,000 UNITS/ML 5 ML ORAL.SUSP. SWSW SCH ×3 (13:21→20:35)
[2018-03-06] MEDS: CEFEPIME HCL IV Push 1 GM VIAL. IVP SCH ×2 (13:22→20:37)
--- NOTE | 2018-03-06 13:41 | CONS ---
DATE OF CONSULTATION: 03/06/2018 LOCATION: The patient's room is #406. REQUESTING PHYSICIAN: Dr. Henley. REASON FOR CONSULTATION: Pneumonia. HISTORY OF PRESENT ILLNESS: The patient is a 67-year-old female with history of COPD, ongoing tobacco abuse and history of atrial fibrillation for approximately a year or so. She has some states she has been feeling kind of weak for several weeks, but over the past week, has had increasing cough and left-sided chest discomfort and low-grade fevers with minimal sputum production. She has some nausea, some constipation and some urinary frequency. She presented to [facility] where she was found to have a right lower lobe pneumonia and small tiny pleural effusion and some patchy infiltrates on the right side. On arrival, she had a white count of 22.9 and had been placed on levofloxacin. Her white blood cell count has improved to 17.2, but she did have a temperature last night of 99.8. She continues to feel weak, has a cough and continues to not eat much. PAST MEDICAL HISTORY: Positive for the above-mentioned atrial fibrillation, hypertension, COPD, chronic respiratory failure on 3.5 liters at home, irritable bowel, anemia, depression, fibromyalgia, scoliosis. PAST SURGICAL HISTORY: Positive for cholecystectomy, hysterectomy and plate placement in her spinal area. REVIEW OF SYSTEMS: Otherwise negative. ALLERGIES: PENICILLIN. She has tolerated cephalexin and questionable tolerated amoxicillin. SOCIAL HISTORY: She continues to smoke. She has a very supportive son. FAMILY HISTORY: Positive for cancer, coronary artery disease and hypertension. CURRENT MEDICATIONS: TPN, levofloxacin, Ventolin, Eliquis, Celexa, diltiazem, Neurontin, Mucinex, lactobacillus, Prinivil, Amitiza, bisoprolol, Remeron, Protonix, tramadol. Other meds are available, have been reviewed in the chart. PHYSICAL EXAMINATION: VITAL SIGNS: T-max has been 99.8, currently 99.1 most recently; pulse 68; respirations 16; blood pressure 129/75, satting 92% on 3 liters. CONSTITUTIONAL: She is alert. She is cooperative. She does look a little tired. She is in no acute distress. She is cooperative. HEENT: Pupils equal and reactive. Normal conjunctivae. Oral cavity, pharynx has some mild erythema. NECK: Supple. LUNGS: Have some bilateral wheezes. HEART: S1, S2 without gross murmur. ABDOMEN: Soft, nontender, nondistended with positive bowel sounds. EXTREMITIES: Without clubbing or cyanosis. No gross edema. SKIN: Warm to touch without generalized rash. NEUROLOGIC: She is nonfocal and appropriate. PSYCHIATRIC: Affect is appropriate. LABORATORY DATA: White count 17.2, hemoglobin 9.5, platelets of 493, neutrophils 63, lymphs are 25. Creatinine 0.5, glucose of 102. Urinalysis negative. Blood cultures from the are all negative. Most recent chest x-ray, mild streaky bibasilar atelectasis and/or pneumonitis. IMPRESSION: 1. Acute exacerbation of chronic obstructive pulmonary disease. 2. Leukocytosis. 3. Atrial fibrillation. 4. PENICILLIN ALLERGY, but tolerates cephalexin, questionable tolerates amoxicillin. 5. Thrush. 6. Failure to thrive. 7. Ongoing tobacco abuse. RECOMMENDATIONS: We will discontinue levofloxacin, has received 3 doses already. We will change to doxycycline and cefepime, add nystatin swish and swallow. Follow up labs and cultures, await pulmonary followup as she still has some significant wheezing. We will check strep and legionella antigens. This was discussed with her family. Also, follow up cultures. Thank you for allowing me to participate in this patient's care. Should you have any questions, please do not hesitate to contact me. RAMON SÁNCHEZ MD DR: LD/miya JOB#: [id number] / [id number]
[2018-03-06] MEDS: ANTI-COAG MONITOR BY PHARMACY. MC PRN (13:59)
[2018-03-06] MEDS ORDERED: CEFEPIME HCL 1 GM in IV DEXTROSE 5% 50 ML IV SCH (14:00)
[2018-03-06 15:00] VITALS: BP 114/55
[2018-03-06] MEDS: SENNOSIDES 8.6 MG TABLET PO PRN (17:13)
[2018-03-06] MEDS: DOCUSATE SODIUM 100 MG CAPSULE. PO PRN (17:13)
--- NOTE | 2018-03-06 17:38 | CARD ---
MR#: [id number] Date of Study: 03/06/2018 Ordering Physician: JUNG CONNELL, Referring Physician: TRINH ALTMAN, Tech: Ruthy Pandya APPROVED REPORT EXAM: Two-dimensional and M-mode echocardiogram with Doppler and color Doppler. Other Information Quality : GoodHR: 84bpm Rhythm : NSR INDICATION Atrial Fibrillation RISK FACTORS Hypertension Smoking 2D DIMENSIONS RVDd2.1 (2.9-3.5cm)IVSd2.2 (0.7-1.1cm) Aortic Root(2D)3.3 (2.0-3.7cm)LVDd4.3 (3.9-5.9cm) LVOT Diameter2.0 (1.8-2.4cm)PWd0.8 (0.7-1.1cm) LVDs2.4 (2.5-4.0cm)FS (%) 44.7 % SV65.1 mlLVEF(%)65.0 (>50%) Aortic Valve AoV Peak Erwin.188.8cm/sAoV VTI31.2cm AO Peak GR.14.3mmHgLVOT VTI 17.07cm AO Mean GR.7mmHg Mitral Valve MV E Vrxwyqzr62.2cm/sMV DECEL [id number] MV A Byzokako98.7cm/sE/A Ratio0.7 TDI Lateral E' P. V7.79cm/sMedial E' P. V6.69cm/s E/Lateral E'8.1E/Medial E'9.4 Tricuspid Valve TR P. Loppoeug919my/sRAP VPIARVVD1bfKc TR Peak Gr.09pkIuDIEI01rfEq Pulmonary Vein PVa [id number] LEFT VENTRICLE The left ventricle is normal size. There is normal left ventricular wall thickness. The left ventricu lar systolic function is normal and the ejection fraction is within normal range. The Ejection Fracti on is 65%. There is normal LV segmental wall motion. Transmitral Doppler flow pattern is Grade I-abno rmal relaxation pattern. RIGHT VENTRICLE The right ventricle is normal size. There is normal right ventricular wall thickness. The right ventr icular systolic function is normal. ATRIA The left atrium size is normal. The right atrium size is normal. The interatrial septum is intact wit h no evidence for an atrial septal defect or patent foramen ovale as noted on 2-D or Doppler imaging. AORTIC VALVE The aortic valve is normal in structure and function. Doppler and Color Flow revealed no significant aortic regurgitation. MITRAL VALVE The mitral valve is normal in structure and function. Doppler and Color Flow revealed no mitral valve regurgitation noted. TRICUSPID VALVE The tricuspid valve is normal in structure Doppler and Color Flow revealed trace tricuspid regurgitat ion. The PA pressure was estimated at 33 mmHg. PULMONIC VALVE The pulmonic valve is not well visualized. Doppler and Color Flow revealed no pulmonic valvular regur gitation. GREAT VESSELS The aortic root is normal in size. The IVC is normal in size and collapses >50% with inspiration. PERICARDIAL EFFUSION There is no evidence of significant pericardial effusion. Critical Notification Critical Value: No <Conclusion> The left ventricular systolic function is normal and the ejection fraction is within normal range. T he Ejection Fraction is 65%. Transmitral Doppler flow pattern is Grade I-abnormal relaxation pattern. The left atrium size is normal. The right atrium size is normal. The aortic valve is normal in structure and function. The mitral valve is normal in structure and function. Doppler and Color Flow revealed trace tricuspid regurgitation. The PA pressure was estimated at 33 m mHg. The pulmonic valve is not well visualized. There is no evidence of significant pericardial effusion. Signed by : Jay Ugarte MD Electronically Approved : 03/06/2018 17:37:32
[2018-03-06 19:00] VITALS: BP 125/74
[2018-03-06] MEDS: MIRTAZAPINE 7.5 MG TABLET. PO SCH (20:36)
[2018-03-06] MEDS: ACETAMINOPHEN 325 MG TABLET. PO PRN (20:36)
[2018-03-06] MEDS: PATCH REMOVAL. MC SCH (20:38)
[2018-03-06 23:00] VITALS: BP 116/71
[2018-03-07 03:00] VITALS: BP 154/76
[2018-03-07 03:50] LABS: BASO # 0.1 x10^3/uL (0.0-0.2); BASO % 0 % (0-3); EOS # 0.3 x10^3/uL (0.0-0.7); EOS % 2 % (0-3); HEMATOCRIT 28.4 % (36.0-47.0); HEMOGLOBIN 9.4 g/dL (12.0-15.5); LYMPH # 3.2 x10^3/uL (1.0-4.8); LYMPH % 23 % (24-48); MEAN CORPUSCULAR HEMOGLOBIN 26 pg (25-35); MEAN CORPUSCULAR HGB CONC 33 g/dL (31-37); MEAN CORPUSCULAR VOLUME 79 fL (79-100); MONO # 1.5 x10^3/uL (0.0-1.1); MONO % 11 % (0-9); NEUT # 8.8 x10^3uL (1.8-7.7); NEUT % 63 % (31-73); PLATELET COUNT 543 x10^3/uL (140-400); RED BLOOD COUNT 3.59 x10^6/uL (3.50-5.40); RED CELL DISTRIBUTION WIDTH 21.2 % (11.5-14.5); WHITE BLOOD COUNT 13.9 x10^3/uL (4.0-11.0)
[2018-03-07 04:08] LABS: CALCIUM 9.6 mg/dL (8.5-10.1); CREATININE 0.4 mg/dL (0.6-1.0); GFR 159.2; POTASSIUM 3.7 mmol/L (3.5-5.1)
[2018-03-07] MEDS: oxyCODONE/APAP 10/325 1 TAB TABLET PO PRN ×2 (05:55→17:57)
[2018-03-07] MEDS: PANTOPRAZOLE 40 MG TABLET.DR. PO SCH ×2 (05:55→17:04)
[2018-03-07] MEDS: CEFEPIME HCL IV Push 1 GM VIAL. IVP SCH ×3 (05:55→20:40)
[2018-03-07 07:00] VITALS: BP 134/77
[2018-03-07] MEDS: IPRATRPIUM/ALBUTEROL 0.5/2.5MG 3 ML NEBU. NEB SCH ×4 (07:29→20:25)
[2018-03-07] MEDS: LACTOBACILLUS RHAMNOSUS GG 1 CAPSULE. PO SCH ×2 (08:36→20:40)
[2018-03-07] MEDS: GABAPENTIN 300 MG CAPSULE. PO SCH ×2 (08:36→20:40)
[2018-03-07] MEDS: CITALOPRAM 20 MG TABLET. PO SCH (08:36)
[2018-03-07] MEDS: APIXABAN 5 MG TABLET. PO SCH ×2 (08:36→20:40)
[2018-03-07] MEDS: DOXYCYCLINE HYCLATE 100 MG TABLET PO SCH ×2 (08:36→20:40)
[2018-03-07] MEDS: LUBIPROSTONE 8 MCG CAPSULE PO SCH ×2 (08:36→17:04)
[2018-03-07] MEDS: CYANOCOBALAMIN (VITAMIN B-12) 1,000 MCG TABLET. PO SCH (08:36)
[2018-03-07] MEDS: NYSTATIN 100,000 UNITS/ML 5 ML ORAL.SUSP. SWSW SCH ×4 (08:36→20:39)
[2018-03-07] MEDS: LISINOPRIL 10 MG TABLET PO SCH (08:37)
[2018-03-07] MEDS: METOPROLOL TART IMMED RELEASE 25 MG TABLET. PO SCH ×2 (08:38→20:41)
[2018-03-07] MEDS: LIDOCAINE (700MG/PATCH) PATCH. TD SCH (08:40)
[2018-03-07] MEDS: AMINO AC 3%/ELECTROLYTE/GLYCER 1,000 ML IV SCH ×2 (08:44→20:41)
[2018-03-07] MEDS: IV NORMAL SALINE 1000ML BAG 1,000 ML IV SCH ×2 (08:44→17:05)
--- NOTE | 2018-03-07 09:05 | PDOC ---
PULMONARY PROGRESS NOTES Subjective NOT MORE SOA Vitals Vital Signs Date Time Temp Pulse Resp B/P (MAP) Pulse Ox O2 Delivery O2 Flow Rate FiO2 03/07/18 08:38 94 134/77 03/07/18 07:29 94 Nasal Cannula 3.0 03/07/18 07:00 98.1 16 98.1 General: Alert Lungs: Crackles, Other Cardiovascular: S1 Abdomen: Soft Neuro Exam: Alert Extremities: No Edema Skin: Warm Labs Laboratory Tests Test 03/06/18 04:30 03/07/18 03:05 White Blood Count 17.2 x10^3/uL (4.0-11.0) 13.9 x10^3/uL (4.0-11.0) Red Blood Count 3.66 x10^6/uL (3.50-5.40) 3.59 x10^6/uL (3.50-5.40) Hemoglobin 9.5 g/dL (12.0-15.5) 9.4 g/dL (12.0-15.5) Hematocrit 28.8 % (36.0-47.0) 28.4 % (36.0-47.0) Mean Corpuscular Volume 79 fL (79-100) 79 fL (79-100) Mean Corpuscular Hemoglobin 26 pg (25-35) 26 pg (25-35) Mean Corpuscular Hemoglobin Concent 33 g/dL (31-37) 33 g/dL (31-37) Red Cell Distribution Width 21.1 % (11.5-14.5) 21.2 % (11.5-14.5) Platelet Count 493 x10^3/uL (140-400) 543 x10^3/uL (140-400) Neutrophils (%) (Auto) 63 % (31-73) 63 % (31-73) Lymphocytes (%) (Auto) 25 % (24-48) 23 % (24-48) Monocytes (%) (Auto) 10 % (0-9) 11 % (0-9) Eosinophils (%) (Auto) 1 % (0-3) 2 % (0-3) Basophils (%) (Auto) 1 % (0-3) 0 % (0-3) Neutrophils # (Auto) 10.8 x10^3uL (1.8-7.7) 8.8 x10^3uL (1.8-7.7) Lymphocytes # (Auto) 4.4 x10^3/uL (1.0-4.8) 3.2 x10^3/uL (1.0-4.8) Monocytes # (Auto) 1.7 x10^3/uL (0.0-1.1) 1.5 x10^3/uL (0.0-1.1) Eosinophils # (Auto) 0.2 x10^3/uL (0.0-0.7) 0.3 x10^3/uL (0.0-0.7) Basophils # (Auto) 0.1 x10^3/uL (0.0-0.2) 0.1 x10^3/uL (0.0-0.2) Sodium Level 134 mmol/L (136-145) 135 mmol/L (136-145) Potassium Level 3.5 mmol/L (3.5-5.1) 3.7 mmol/L (3.5-5.1) Chloride Level 99 mmol/L (98-107) 100 mmol/L (98-107) Carbon Dioxide Level 26 mmol/L (21-32) 25 mmol/L (21-32) Anion Gap 9 (6-14) 10 (6-14) Blood Urea Nitrogen 5 mg/dL (7-20) 7 mg/dL (7-20) Creatinine 0.5 mg/dL (0.6-1.0) 0.4 mg/dL (0.6-1.0) Estimated GFR (Cockcroft-Gault) 123.1 159.2 Glucose Level 102 mg/dL (70-99) 115 mg/dL (70-99) Calcium Level 9.7 mg/dL (8.5-10.1) 9.6 mg/dL (8.5-10.1) Laboratory Tests Test 03/07/18 03:05 White Blood Count 13.9 x10^3/uL (4.0-11.0) Red Blood Count 3.59 x10^6/uL (3.50-5.40) Hemoglobin 9.4 g/dL (12.0-15.5) Hematocrit 28.4 % (36.0-47.0) Mean Corpuscular Volume 79 fL (79-100) Mean Corpuscular Hemoglobin 26 pg (25-35) Mean Corpuscular Hemoglobin Concent 33 g/dL (31-37) Red Cell Distribution Width 21.2 % (11.5-14.5) Platelet Count 543 x10^3/uL (140-400) Neutrophils (%) (Auto) 63 % (31-73) Lymphocytes (%) (Auto) 23 % (24-48) Monocytes (%) (Auto) 11 % (0-9) Eosinophils (%) (Auto) 2 % (0-3) Basophils (%) (Auto) 0 % (0-3) Neutrophils # (Auto) 8.8 x10^3uL (1.8-7.7) Lymphocytes # (Auto) 3.2 x10^3/uL (1.0-4.8) Monocytes # (Auto) 1.5 x10^3/uL (0.0-1.1) Eosinophils # (Auto) 0.3 x10^3/uL (0.0-0.7) Basophils # (Auto) 0.1 x10^3/uL (0.0-0.2) Sodium Level 135 mmol/L (136-145) Potassium Level 3.7 mmol/L (3.5-5.1) Chloride Level 100 mmol/L (98-107) Carbon Dioxide Level 25 mmol/L (21-32) Anion Gap 10 (6-14) Blood Urea Nitrogen 7 mg/dL (7-20) Creatinine 0.4 mg/dL (0.6-1.0) Estimated GFR (Cockcroft-Gault) 159.2 Glucose Level 115 mg/dL (70-99) Calcium Level 9.6 mg/dL (8.5-10.1) Medications Active Scripts Medications Dose Route/Sig Max Daily Dose Days Date Category Dose Instructions Senokot (Sennosides) 8.6 Mg Tablet 1 Tab PO PRN BID 03/03/18 Reported Mirtazapine 15 Mg Tablet 7.5 Mg PO QHS 03/03/18 Reported Milk Of Magnesia (Magnesium Hydroxide) 2,400 Mg/10 Ml Oral.susp 2,400 Mg PO 03/03/18 Reported Cardizem Cd (Diltiazem Hcl) 360 Mg Cap.er.24h 300 Mg PO BID 03/03/18 Reported Cyanocobalamin Injection (Cyanocobalamin (Vitamin B-12)) 1,000 Mcg/1 Ml Vial 1 Ml IM QMONTH 03/03/18 Reported Vitamin B-12 (Cyanocobalamin (Vitamin B-12)) 1,000 Mcg Tablet 1 Tab PO DAILY 03/03/18 Reported Alum-Mag Hydroxide-Simeth Liq (Mag Hydrox/Al Hydrox/Simeth) 360 Ml Oral.susp 360 Ml PO 03/03/18 Reported Albuterol Sulfate Conc Neb Soln (Albuterol Sulfate) 2.5 Mg/0.5 Ml Vial.neb 1 Vial NEB Q6HRS 03/03/18 Reported Metoprolol Tartrate 25 Mg Tablet 1 Tab PO DAILY 03/03/18 Reported Melatonin 3 Mg Tablet 1 Tab PO QHS 03/03/18 Reported Lidocaine 1 Each Adh..patch 1 Each TP 03/03/18 Reported Levsin (Hyoscyamine Sulfate) 0.125 Mg Tablet 1 Tab PO TID PRN 03/03/18 Reported Percocet 10-325 Mg Tablet (Oxycodone/Acetaminophen) 1 Each Tablet 1 Tab PO BID PRN 03/03/18 Reported Amitiza (Lubiprostone) 24 Mcg Capsule 1 Cap PO BID 03/03/18 Reported Acetaminophen 500 Mg Tablet 2 Tab PO Q6HRS 03/03/18 Reported Lisinopril 10 Mg Tablet 1 Tab PO DAILY 05/30/17 Rx Eliquis (Apixaban) 5 Mg Tablet 5 Mg PO BID 05/26/17 Reported Gabapentin 300 Mg Capsule 300 Mg PO BID 05/26/17 Reported Tramadol Hcl 50 Mg Tablet 50 Tab PO PRN Q6HRS 02/09/15 Rx Celexa (Citalopram Hydrobromide) 40 Mg Tablet 40 Mg PO DAILY 09/26/14 Rx Omeprazole 40 Mg Capsule.dr 40 Mg PO BID 02/04/14 Reported LAST DOSE GIVEN: DATE: today we use Pantaprozole (Protonix) TIME: 8:30 AM NEXT DOSE DUE: DATE: tomorrow morning Impression . 1. Abnormal CT chest consistent with pneumonia. 2. Cough with yellow sputum production and CT chest findings compatible with pneumonia, suspect gram-negative. 3. Underlying chronic obstructive pulmonary disease, which is with chronic hypoxic respiratory failure, on home oxygen at 3.5 liters, was currently on 2.5 liters. 4. Abdominal pain per PCP. 5. Aflutter today CT CHEST IMPRESSION: 1. There is right lower lobe infiltrate at the lung base and small right pleural effusion, also some patchy minimal right middle lobe infiltrate and subtle groundglass infiltrate of the left upper lobe. 2. 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 3. There is emphysema. 4. There is coronary calcification. Plan . ANTIBX PER ID, HOME WHEN OK WITH ID FOLLOW UP IN OFFICE 6 MIN WALK GEORGIA BUCK MD Mar 07, 2018 09:05
[2018-03-07 11:00] VITALS: BP 107/58
--- NOTE | 2018-03-07 11:27 | PDOC ---
Infectious Disease Note Subjective Subjective Feels some better. Still cough but less Mouth better. No F/C/S/rash/V/D Feels tired but less ROS ROS o/w neg Vital Sign Vital Signs Vital Signs Date Time Temp Pulse Resp B/P (MAP) Pulse Ox O2 Delivery O2 Flow Rate FiO2 03/07/18 11:09 95 Nasal Cannula 3.0 03/07/18 08:38 94 134/77 03/07/18 07:00 98.1 16 98.1 Physical Exam PHYSICAL EXAM CONSTITUTIONAL: She is alert. She is cooperative. She does look a little better. She is in no acute distress. She is cooperative. HEENT: Pupils equal and reactive. Normal conjunctivae. Oral cavity, pharynx has some mild erythema but improved NECK: Supple. LUNGS: Clear but decreased. HEART: S1, S2 without gross murmur. ABDOMEN: Soft, nontender, nondistended with positive bowel sounds. EXTREMITIES: Without clubbing or cyanosis. No gross edema. SKIN: Warm to touch without generalized rash. NEUROLOGIC: She is nonfocal and appropriate. PSYCHIATRIC: Affect is appropriate. Labs Lab Laboratory Tests Test 03/07/18 03:05 White Blood Count 13.9 x10^3/uL (4.0-11.0) Red Blood Count 3.59 x10^6/uL (3.50-5.40) Hemoglobin 9.4 g/dL (12.0-15.5) Hematocrit 28.4 % (36.0-47.0) Mean Corpuscular Volume 79 fL (79-100) Mean Corpuscular Hemoglobin 26 pg (25-35) Mean Corpuscular Hemoglobin Concent 33 g/dL (31-37) Red Cell Distribution Width 21.2 % (11.5-14.5) Platelet Count 543 x10^3/uL (140-400) Neutrophils (%) (Auto) 63 % (31-73) Lymphocytes (%) (Auto) 23 % (24-48) Monocytes (%) (Auto) 11 % (0-9) Eosinophils (%) (Auto) 2 % (0-3) Basophils (%) (Auto) 0 % (0-3) Neutrophils # (Auto) 8.8 x10^3uL (1.8-7.7) Lymphocytes # (Auto) 3.2 x10^3/uL (1.0-4.8) Monocytes # (Auto) 1.5 x10^3/uL (0.0-1.1) Eosinophils # (Auto) 0.3 x10^3/uL (0.0-0.7) Basophils # (Auto) 0.1 x10^3/uL (0.0-0.2) Sodium Level 135 mmol/L (136-145) Potassium Level 3.7 mmol/L (3.5-5.1) Chloride Level 100 mmol/L (98-107) Carbon Dioxide Level 25 mmol/L (21-32) Anion Gap 10 (6-14) Blood Urea Nitrogen 7 mg/dL (7-20) Creatinine 0.4 mg/dL (0.6-1.0) Estimated GFR (Cockcroft-Gault) 159.2 Glucose Level 115 mg/dL (70-99) Calcium Level 9.6 mg/dL (8.5-10.1) Micro Microbiology 03/03/18 Blood Culture - Preliminary, Resulted NO GROWTH AFTER 2 DAYS Objective Assessment AECOPD Leukocytosis - better Afib PCN allergy - has tolerated Keflex. ? tolerated Amox Thrush Failure to thrive Ongoing tobacco abuse Plan Plan of Care Discontinue Levoflox (3 doses already) Cont Doxy and Cefepime Cont Nystatin F/u labs and response Check strep and legionella antigens RAMON SÁNCHEZ MD Mar 07, 2018 11:26
[2018-03-07] MEDS: traMADol 50 MG TABLET PO PRN ×2 (12:32→20:40)
--- NOTE | 2018-03-07 12:44 | PDOC ---
CARDIO Progress Notes Date and Time Date of Service 03/07/2018 Time of Evaluation 1110 Subjective Subjective: No Chest Pain, No shortness of breath, No Palpitations, Other ( still having some left side abd pain) Vitals Vitals Vital Signs Date Time Temp Pulse Resp B/P (MAP) Pulse Ox O2 Delivery O2 Flow Rate FiO2 03/07/18 12:32 Nasal Cannula 3.0 03/07/18 11:09 95 03/07/18 11:00 98.1 64 18 107/58 (74) 98.1 Weight Weight [ ] Input and Output Intake and Output Intake and Output 03/07/18 07:00 Intake Total 3000 ml Output Total 500 ml Balance 2500 ml IV Total 3000 ml Output Urine Total 500 ml # Voids 7 Laboratory Labs Laboratory Tests Test 03/07/18 03:05 White Blood Count 13.9 x10^3/uL (4.0-11.0) Red Blood Count 3.59 x10^6/uL (3.50-5.40) Hemoglobin 9.4 g/dL (12.0-15.5) Hematocrit 28.4 % (36.0-47.0) Mean Corpuscular Volume 79 fL (79-100) Mean Corpuscular Hemoglobin 26 pg (25-35) Mean Corpuscular Hemoglobin Concent 33 g/dL (31-37) Red Cell Distribution Width 21.2 % (11.5-14.5) Platelet Count 543 x10^3/uL (140-400) Neutrophils (%) (Auto) 63 % (31-73) Lymphocytes (%) (Auto) 23 % (24-48) Monocytes (%) (Auto) 11 % (0-9) Eosinophils (%) (Auto) 2 % (0-3) Basophils (%) (Auto) 0 % (0-3) Neutrophils # (Auto) 8.8 x10^3uL (1.8-7.7) Lymphocytes # (Auto) 3.2 x10^3/uL (1.0-4.8) Monocytes # (Auto) 1.5 x10^3/uL (0.0-1.1) Eosinophils # (Auto) 0.3 x10^3/uL (0.0-0.7) Basophils # (Auto) 0.1 x10^3/uL (0.0-0.2) Sodium Level 135 mmol/L (136-145) Potassium Level 3.7 mmol/L (3.5-5.1) Chloride Level 100 mmol/L (98-107) Carbon Dioxide Level 25 mmol/L (21-32) Anion Gap 10 (6-14) Blood Urea Nitrogen 7 mg/dL (7-20) Creatinine 0.4 mg/dL (0.6-1.0) Estimated GFR (Cockcroft-Gault) 159.2 Glucose Level 115 mg/dL (70-99) Calcium Level 9.6 mg/dL (8.5-10.1) Microbiology Micro Microbiology 03/03/18 Blood Culture - Preliminary, Resulted NO GROWTH AFTER 3 DAYS Physical Exam HEENT: Neck Supple W Full Motion Chest: Symmetric LUNGS: Other (diminished bases) Heart: S1S2, RRR (SR) Abdomen: Soft N/T Extremities: No Calf Tenderness Neurology: alert, oriented, follow commands Assessment Assessment 1. PAFIB: converted to SR. TTE unremarkable for significant changes. 2. Abdominal pain/leukocytosis: per ID 3. Hyponatremia: resolved 4. AECOPD with persistent tobaccoism: per pulmonary Recommendations 1. Continue cardizem, metoprolol and apixaban. 2. Follow up in office when discharge. Will follow along peripherally. MOUSTAPHA BARRERA APRN Mar 07, 2018 12:44
[2018-03-07] MEDS: ANTI-COAG MONITOR BY PHARMACY. MC PRN (14:12)
[2018-03-07 15:00] VITALS: BP 138/80
[2018-03-07 19:00] VITALS: BP 140/84
[2018-03-07] MEDS: PATCH REMOVAL. MC SCH (19:40)
--- NOTE | 2018-03-07 19:42 | PDOC ---
PROGRESS NOTES Chief Complaint Chief Complaint left rib cage pain with old fx likely AMS, metabolic encephalopathy likely CAP unsteady gait with frequent fall chronic constipation cough hyponatremia failure to thrive leukocytosis sepsis fibromyalgia htn Pfib on eliquis h/o drug seeking behavior chronic pain on tramadol mild malnutrition tobaccoism plan: IV cefepime, doxy see orders add miralax see orders encourage ambulation may need snf History of Present Illness History of Present Illness ROS: no fever, chills, sob or chest pain cough is better white frothy sputum production no nausea or vomiting feels constipated Vitals Vitals Vital Signs Date Time Temp Pulse Resp B/P (MAP) Pulse Ox O2 Delivery O2 Flow Rate FiO2 03/07/18 18:58 Room Air 03/07/18 15:17 3.0 03/07/18 15:00 98.1 84 16 138/80 (99) 96 98.1 Physical Exam Physical Exam CONSTITUTIONAL: She is alert. She is cooperative. She does look a little better. She is in no acute distress. She is cooperative. HEENT: Pupils equal and reactive. Normal conjunctivae. Oral cavity, pharynx has some mild erythema but improved NECK: Supple. LUNGS: Clear but decreased. HEART: S1, S2 without gross murmur. ABDOMEN: Soft, nontender, nondistended with positive bowel sounds. EXTREMITIES: Without clubbing or cyanosis. No gross edema. SKIN: Warm to touch without generalized rash. NEUROLOGIC: She is nonfocal and appropriate. PSYCHIATRIC: Affect is appropriate. General: Cooperative, No acute distress Heart: Normal S1, Normal S2, No murmurs Lungs: Crackles, Other Abdomen: Soft Extremities: No edema Skin: No rashes Labs LABS Laboratory Tests Test 03/07/18 03:05 White Blood Count 13.9 x10^3/uL (4.0-11.0) Red Blood Count 3.59 x10^6/uL (3.50-5.40) Hemoglobin 9.4 g/dL (12.0-15.5) Hematocrit 28.4 % (36.0-47.0) Mean Corpuscular Volume 79 fL (79-100) Mean Corpuscular Hemoglobin 26 pg (25-35) Mean Corpuscular Hemoglobin Concent 33 g/dL (31-37) Red Cell Distribution Width 21.2 % (11.5-14.5) Platelet Count 543 x10^3/uL (140-400) Neutrophils (%) (Auto) 63 % (31-73) Lymphocytes (%) (Auto) 23 % (24-48) Monocytes (%) (Auto) 11 % (0-9) Eosinophils (%) (Auto) 2 % (0-3) Basophils (%) (Auto) 0 % (0-3) Neutrophils # (Auto) 8.8 x10^3uL (1.8-7.7) Lymphocytes # (Auto) 3.2 x10^3/uL (1.0-4.8) Monocytes # (Auto) 1.5 x10^3/uL (0.0-1.1) Eosinophils # (Auto) 0.3 x10^3/uL (0.0-0.7) Basophils # (Auto) 0.1 x10^3/uL (0.0-0.2) Sodium Level 135 mmol/L (136-145) Potassium Level 3.7 mmol/L (3.5-5.1) Chloride Level 100 mmol/L (98-107) Carbon Dioxide Level 25 mmol/L (21-32) Anion Gap 10 (6-14) Blood Urea Nitrogen 7 mg/dL (7-20) Creatinine 0.4 mg/dL (0.6-1.0) Estimated GFR (Cockcroft-Gault) 159.2 Glucose Level 115 mg/dL (70-99) Calcium Level 9.6 mg/dL (8.5-10.1) Assessment and Plan Assessmemt and Plan Problems Medical Problems: (1) Abdominal pain Status: Acute (2) Failure to thrive Status: Acute (3) Hyponatremia Status: Acute (4) Leukocytosis Status: Acute Comment Review of Relevant I have reviewed the following items tracy (where applicable) has been applied. Labs Laboratory Tests Test 03/06/18 04:30 03/07/18 03:05 White Blood Count 17.2 x10^3/uL (4.0-11.0) 13.9 x10^3/uL (4.0-11.0) Red Blood Count 3.66 x10^6/uL (3.50-5.40) 3.59 x10^6/uL (3.50-5.40) Hemoglobin 9.5 g/dL (12.0-15.5) 9.4 g/dL (12.0-15.5) Hematocrit 28.8 % (36.0-47.0) 28.4 % (36.0-47.0) Mean Corpuscular Volume 79 fL (79-100) 79 fL (79-100) Mean Corpuscular Hemoglobin 26 pg (25-35) 26 pg (25-35) Mean Corpuscular Hemoglobin Concent 33 g/dL (31-37) 33 g/dL (31-37) Red Cell Distribution Width 21.1 % (11.5-14.5) 21.2 % (11.5-14.5) Platelet Count 493 x10^3/uL (140-400) 543 x10^3/uL (140-400) Neutrophils (%) (Auto) 63 % (31-73) 63 % (31-73) Lymphocytes (%) (Auto) 25 % (24-48) 23 % (24-48) Monocytes (%) (Auto) 10 % (0-9) 11 % (0-9) Eosinophils (%) (Auto) 1 % (0-3) 2 % (0-3) Basophils (%) (Auto) 1 % (0-3) 0 % (0-3) Neutrophils # (Auto) 10.8 x10^3uL (1.8-7.7) 8.8 x10^3uL (1.8-7.7) Lymphocytes # (Auto) 4.4 x10^3/uL (1.0-4.8) 3.2 x10^3/uL (1.0-4.8) Monocytes # (Auto) 1.7 x10^3/uL (0.0-1.1) 1.5 x10^3/uL (0.0-1.1) Eosinophils # (Auto) 0.2 x10^3/uL (0.0-0.7) 0.3 x10^3/uL (0.0-0.7) Basophils # (Auto) 0.1 x10^3/uL (0.0-0.2) 0.1 x10^3/uL (0.0-0.2) Sodium Level 134 mmol/L (136-145) 135 mmol/L (136-145) Potassium Level 3.5 mmol/L (3.5-5.1) 3.7 mmol/L (3.5-5.1) Chloride Level 99 mmol/L (98-107) 100 mmol/L (98-107) Carbon Dioxide Level 26 mmol/L (21-32) 25 mmol/L (21-32) Anion Gap 9 (6-14) 10 (6-14) Blood Urea Nitrogen 5 mg/dL (7-20) 7 mg/dL (7-20) Creatinine 0.5 mg/dL (0.6-1.0) 0.4 mg/dL (0.6-1.0) Estimated GFR (Cockcroft-Gault) 123.1 159.2 Glucose Level 102 mg/dL (70-99) 115 mg/dL (70-99) Calcium Level 9.7 mg/dL (8.5-10.1) 9.6 mg/dL (8.5-10.1) Laboratory Tests Test 03/07/18 03:05 White Blood Count 13.9 x10^3/uL (4.0-11.0) Red Blood Count 3.59 x10^6/uL (3.50-5.40) Hemoglobin 9.4 g/dL (12.0-15.5) Hematocrit 28.4 % (36.0-47.0) Mean Corpuscular Volume 79 fL (79-100) Mean Corpuscular Hemoglobin 26 pg (25-35) Mean Corpuscular Hemoglobin Concent 33 g/dL (31-37) Red Cell Distribution Width 21.2 % (11.5-14.5) Platelet Count 543 x10^3/uL (140-400) Neutrophils (%) (Auto) 63 % (31-73) Lymphocytes (%) (Auto) 23 % (24-48) Monocytes (%) (Auto) 11 % (0-9) Eosinophils (%) (Auto) 2 % (0-3) Basophils (%) (Auto) 0 % (0-3) Neutrophils # (Auto) 8.8 x10^3uL (1.8-7.7) Lymphocytes # (Auto) 3.2 x10^3/uL (1.0-4.8) Monocytes # (Auto) 1.5 x10^3/uL (0.0-1.1) Eosinophils # (Auto) 0.3 x10^3/uL (0.0-0.7) Basophils # (Auto) 0.1 x10^3/uL (0.0-0.2) Sodium Level 135 mmol/L (136-145) Potassium Level 3.7 mmol/L (3.5-5.1) Chloride Level 100 mmol/L (98-107) Carbon Dioxide Level 25 mmol/L (21-32) Anion Gap 10 (6-14) Blood Urea Nitrogen 7 mg/dL (7-20) Creatinine 0.4 mg/dL (0.6-1.0) Estimated GFR (Cockcroft-Gault) 159.2 Glucose Level 115 mg/dL (70-99) Calcium Level 9.6 mg/dL (8.5-10.1) Microbiology 03/03/18 Blood Culture - Preliminary, Resulted NO GROWTH AFTER 4 DAYS Medications Current Medications Ondansetron HCl (Zofran) 4 mg 1X ONCE IV Last administered on 03/02/18at 21:17 ; Start 03/02/18 at 20:30; Stop 03/02/18 at 20:31; Status DC Famotidine (Pepcid Vial) 20 mg 1X ONCE IVP Last administered on 03/02/18at 21: 17; Start 03/02/18 at 20:30; Stop 03/02/18 at 20:31; Status DC Sodium Chloride 1,000 ml @ 1,000 mls/hr 1X ONCE IV Last administered on at 21:17; Start 03/02/18 at 20:30; Stop 03/02/18 at 21:29; Status DC Fentanyl Citrate (Fentanyl 2ml Vial) 50 mcg 1X ONCE IV Last administered on at 21:16; Start 03/02/18 at 20:45; Stop 03/02/18 at 20:46; Status DC Iohexol (Omnipaque 300 Mg/ml) 75 ml 1X ONCE IV Last administered on 03/02/18at 20:45; Start 03/02/18 at 20:45; Stop 03/02/18 at 20:50; Status DC Iohexol (Omnipaque 240 Mg/ml) 30 ml 1X ONCE PO Last administered on 03/02/18at 20:45; Start 03/02/18 at 20:45; Stop 03/02/18 at 20:50; Status DC Ondansetron HCl (Zofran) 4 mg PRN Q8HRS PRN IV NAUSEA/VOMITING; Start 03/03/18 at 01:00; Stop 03/03/18 at 17:08; Status DC Apixaban (Eliquis) 5 mg BID PO Last administered on 03/07/18 08:36; Start at 13:00 Lisinopril (Prinivil) 10 mg DAILY PO Last administered on 03/07/18at 08:37; Start 03/03/18 at 13:00 Metoprolol Tartrate (Lopressor) 25 mg DAILY PO Last administered on 03/05/18at 09:20; Start 03/03/18 at 13:00; Stop 03/05/18 at 10:09; Status DC Oxycodone/ Acetaminophen (Percocet 10/325) 1 tab BID PRN PO SEVERE PAIN Last administered on 03/04/18at 12:41; Start 03/03/18 at 12:30; Stop 03/04/18 at 14:19 ; Status DC Tramadol HCl (Ultram) 2,500 mg PRN Q6HRS PO ; Start 03/03/18 at 12:30; Status UNV Citalopram Hydrobromide (CeleXA) 40 mg DAILY PO Last administered on 03/07/18at 08:36; Start 03/03/18 at 13:00 Gabapentin (Neurontin) 300 mg BID PO Last administered on 03/07/18at 08:36; Start 03/03/18 at 13:00 Lubiprostone (Amitiza) 24 mcg BIDWMEALS PO Last administered on 03/07/18at 17:04 ; Start 03/03/18 at 17:00 Non-Formulary Medication (Melatonin ) 1 tab QHS PO ; Start 03/03/18 at 21:00; Status UNV Pantoprazole Sodium (Protonix) 40 mg BIDAC PO Last administered on 03/07/18at 17 :04; Start 03/03/18 at 16:30 Acetaminophen (Tylenol) 650 mg PRN Q6HRS PRN PO FEVER Last administered on 03/06at 20:36; Start 03/03/18 at 12:30 Ondansetron HCl (Zofran) 4 mg PRN Q6HRS PRN IV NAUSEA/VOMITING Last administered on 03/06/18at 18:00; Start 03/03/18 at 12:30 Morphine Sulfate (Morphine Sulfate) 2 mg PRN Q2HR PRN IV MODERATE TO SEVERE PAIN Last administered on 03/06/18at 07:33; Start 03/03/18 at 12:30 Tramadol HCl (Ultram) 50 mg PRN Q6HRS PRN PO MILD TO MODERATE PAIN; Start 03/03 at 12:30; Status UNV Docusate Sodium (Colace) 100 mg PRN DAILY PRN PO CONSTIPATION; Start 03/03/18 at 12:30; Status UNV Albuterol/ Ipratropium (Duoneb) 3 ml RTQID NEB Last administered on 03/07/18at 15:15; Start 03/03/18 at 13:00 Albuterol Sulfate (Ventolin Neb Soln) 2.5 mg PRN Q2HR PRN NEB SHORTNESS OF BREATH; Start 03/03/18 at 12:30 Guaifenesin (Mucinex) 600 mg BID PO Last administered on 03/07/18at 08:36; Start 03/03/18 at 13:00 Acetaminophen (Tylenol) 650 mg PRN Q6HRS PRN PO FEVER; Start 03/03/18 at 12:30 ; Status UNV Ondansetron HCl (Zofran) 4 mg PRN Q6HRS PRN IV NAUSEA/VOMITING; Start 03/03/18 at 12:30; Status UNV Morphine Sulfate (Morphine Sulfate) 2 mg PRN Q2HR PRN IV MODERATE TO SEVERE PAIN; Start 03/03/18 at 12:30; Status UNV Tramadol HCl (Ultram) 50 mg PRN Q6HRS PRN PO MILD TO MODERATE PAIN Last administered on 03/07/18at 12:32; Start 03/03/18 at 12:30 Docusate Sodium (Colace) 100 mg PRN DAILY PRN PO CONSTIPATION Last administered on 03/06/18at 17:13; Start 03/03/18 at 12:30 Sodium Chloride 1,000 ml @ 100 mls/hr Q10H IV Last administered on 03/07/18at 17:05; Start 03/03/18 at 13:00 Enoxaparin Sodium (Lovenox 40mg Syringe) 40 mg Q24H SQ ; Start 03/03/18 at 12:30 ; Status UNV Mirtazapine (Remeron) 7.5 mg QHS PO Last administered on 03/06/18 20:36; Start 03/03/18 at 21:00 Lidocaine (Lidoderm) 1 patch DAILY TD Last administered on 03/07/18 08:40; Start 03/03/18 at 13:00 Miscellaneous (Lidoderm Patch Removal) 1 ea QHS MC Last administered on 19:40; Start 03/03/18 at 21:00 Levofloxacin/ Dextrose 150 ml @ 100 mls/hr Q24H IV Last administered on 17:56; Start 03/03/18 at 16:00; Stop 03/06/18 at 11:13; Status DC Lactobacillus Rhamnosus (Culturelle) 1 cap BID PO Last administered on 08:36; Start 03/03/18 at 21:00 Throat Lozenges (Chloraseptic) 1 spray PRN Q2HR PRN PO SORE THROAT, 2ND CHOICE ; Start 03/04/18 at 09:15 Throat Lozenges (Cepacol Sore Throat Lozenge) 1 judith PRN Q2HRS PRN PO SORE THROAT, 1ST CHOICE Last administered on 03/05/18 20:58; Start 03/04/18 at 09:15 Cyanocobalamin (Vitamin B-12) 1,000 mcg DAILY PO Last administered on at 08:36; Start 03/05/18 at 09:00 Diltiazem HCl (Cardizem 24hr Cd) 300 mg DAILY PO Last administered on 08:37; Start 03/04/18 at 11:00 Non-Formulary Medication (Mirtazapine ) 7.5 mg QHS PO ; Start 03/04/18 at 21:00 ; Status UNV Sennosides (Senna) 8.6 mg PRN BID PRN PO CONSTIPATION (2nd Choice) Last administered on 03/06/18 17:13; Start 03/04/18 at 11:00 Info (Anti-Coagulation Monitoring By Pharmacy) 1 each PRN DAILY PRN MC SEE COMMENTS Last administered on 03/07/18 14:12; Start 03/04/18 at 13:45 Oxycodone/ Acetaminophen (Percocet 10/325) 1 tab PRN BID PRN PO SEVERE PAIN Last administered on 03/07/18at 17:57; Start 03/04/18 at 14:30 Metoprolol Tartrate (Lopressor) 25 mg BID PO Last administered on 03/07/18at 08: 38; Start 03/05/18 at 21:00 Metoprolol Tartrate (Lopressor Vial) 5 mg 1X ONCE IVP ; Start 03/05/18 at 10:30 ; Stop 03/05/18 at 10:31; Status DC Amino Acids/ Glycerin/ Electrolytes 1,000 ml @ 80 mls/hr [id number] IV Last administered on 03/07/18at 08:44; Start 03/05/18 at 18:30 Doxycycline Hyclate (Vibra-Tab) 100 mg BID PO Last administered on 03/07/18at 08 :36; Start 03/06/18 at 12:00 Cefepime HCl 1 gm/ Dextrose 50 ml @ 100 mls/hr Q8HRS IV ; Start 03/06/18 at 14: 00; Status UNV Nystatin (Nystatin Oral Susp) 5 ml [id number] Last administered on 03/07/18at 17:04; Start 03/06/18 at 13:00 Cefepime HCl (Maxipime) 1 gm Q8HRS IVP Last administered on 03/07/18at 13:54; Start 03/06/18 at 12:00 Active Scripts Active Lisinopril 10 Mg Tablet 1 Tab PO DAILY Tramadol Hcl 50 Mg Tablet 50 Tab PO PRN Q6HRS Celexa (Citalopram Hydrobromide) 40 Mg Tablet 40 Mg PO DAILY Reported Cardizem Cd (Diltiazem Hcl) 360 Mg Cap.er.24h 300 Mg PO DAILY Senokot (Sennosides) 8.6 Mg Tablet 1 Tab PO PRN BID Mirtazapine 15 Mg Tablet 7.5 Mg PO QHS Milk Of Magnesia (Magnesium Hydroxide) 2,400 Mg/10 Ml Oral.susp 2,400 Mg PO Cyanocobalamin Injection (Cyanocobalamin (Vitamin B-12)) 1,000 Mcg/1 Ml Vial 1 Ml IM QMONTH Vitamin B-12 (Cyanocobalamin (Vitamin B-12)) 1,000 Mcg Tablet 1 Tab PO DAILY Alum-Mag Hydroxide-Simeth Liq (Mag Hydrox/Al Hydrox/Simeth) 360 Ml Oral.susp 360 Ml PO Albuterol Sulfate Conc Neb Soln (Albuterol Sulfate) 2.5 Mg/0.5 Ml Vial.neb 1 Vial NEB Q6HRS Metoprolol Tartrate 25 Mg Tablet 1 Tab PO DAILY Melatonin 3 Mg Tablet 1 Tab PO QHS Lidocaine 1 Each Adh..patch 1 Each TP Levsin (Hyoscyamine Sulfate) 0.125 Mg Tablet 1 Tab PO TID PRN Percocet 10-325 Mg Tablet (Oxycodone/Acetaminophen) 1 Each Tablet 1 Tab PO BID PRN Amitiza (Lubiprostone) 24 Mcg Capsule 1 Cap PO BID Acetaminophen 500 Mg Tablet 2 Tab PO Q6HRS Eliquis (Apixaban) 5 Mg Tablet 5 Mg PO BID Gabapentin 300 Mg Capsule 300 Mg PO BID Omeprazole 40 Mg Capsule.dr 40 Mg PO BID LAST DOSE GIVEN: DATE: today we use Pantaprozole (Protonix) TIME: 8:30 AM NEXT DOSE DUE: DATE: tomorrow morning Vitals/I & O Vital Sign - Last 24 Hours 03/06/18 03/06/18 03/06/18 03/06/18 20:00 20:20 20:37 23:00 Temp 99.0 99.0 Pulse 97 87 Resp 18 B/P (MAP) 125/74 116/71 (86) Pulse Ox 95 O2 Delivery Nasal Cannula Nasal Cannula Nasal Cannula O2 Flow Rate 3.0 3.0 2.0 03/07/18 03/07/18 03/07/18 03/07/18 03:00 05:55 06:55 07:00 Temp 97.9 98.1 97.9 98.1 Pulse 94 94 Resp 18 16 B/P (MAP) 154/76 (102) 134/77 (96) Pulse Ox 96 97 O2 Delivery Nasal Cannula Room Air Nasal Cannula O2 Flow Rate 2.0 2.0 3.0 03/07/18 03/07/18 03/07/18 03/07/18 07:29 08:00 08:37 08:37 Pulse 94 94 B/P (MAP) 134/77 134/77 Pulse Ox 94 O2 Delivery Nasal Cannula Nasal Cannula O2 Flow Rate 3.0 3.0 03/07/18 03/07/18 03/07/18 03/07/18 08:38 11:00 11:09 12:32 Temp 98.1 98.1 Pulse 94 64 Resp 18 B/P (MAP) 134/77 107/58 (74) Pulse Ox 97 95 O2 Delivery Nasal Cannula Nasal Cannula Nasal Cannula O2 Flow Rate 3.0 3.0 3.0 03/07/18 03/07/18 03/07/18 03/07/18 13:32 15:00 15:17 17:57 Temp 98.1 98.1 Pulse 84 Resp 16 B/P (MAP) 138/80 (99) Pulse Ox 96 O2 Delivery Nasal Cannula Nasal Cannula Nasal Cannula Room Air O2 Flow Rate 3.0 3.0 3.0 03/07/18 18:58 O2 Delivery Room Air Intake and Output 03/06/18 03/06/18 03/07/18 15:00 23:00 07:00 Intake Total 1000 ml 2000 ml Output Total 500 ml Balance 1000 ml 1500 ml Nutrition Consultation Dietary Evaluation: Recommendations by RD: Increase Calorie Intake, Protein supplementation, PPN/ TPN Comments: offer supplement of choice/ encourage po intake continue PPN at this time Expected Outcomes/Goals: to meet > 75% est nutr needs via po intake- not met, goal ongoing Interpretation of weight loss: >10% in 6 months Malnutrition Findings: Weight Status: Appropriate HERNÁN PATEL MD Mar 07, 2018 19:42
[2018-03-07] MEDS: ACETAMINOPHEN 325 MG TABLET. PO PRN (20:40)
[2018-03-07] MEDS: MIRTAZAPINE 7.5 MG TABLET. PO SCH (20:40)
[2018-03-07] MEDS: POLYETHYLENE GLYCOL 3350 17 GM PACKET. PO SCH (20:40)
[2018-03-07 23:00] VITALS: BP 149/81
[2018-03-08 03:00] VITALS: BP 161/93
[2018-03-08] MEDS: IV NORMAL SALINE 1000ML BAG 1,000 ML IV SCH ×2 (03:00→14:37)
[2018-03-08] MEDS: CEFEPIME HCL IV Push 1 GM VIAL. IVP SCH ×3 (05:27→21:12)
[2018-03-08] MEDS: PANTOPRAZOLE 40 MG TABLET.DR. PO SCH ×2 (05:50→16:13)
[2018-03-08] MEDS: oxyCODONE/APAP 10/325 1 TAB TABLET PO PRN (05:51)
[2018-03-08 07:00] VITALS: BP 157/88
[2018-03-08] MEDS: IPRATRPIUM/ALBUTEROL 0.5/2.5MG 3 ML NEBU. NEB SCH ×4 (08:19→19:30)
[2018-03-08] MEDS: APIXABAN 5 MG TABLET. PO SCH ×2 (08:33→21:12)
[2018-03-08] MEDS: LUBIPROSTONE 8 MCG CAPSULE PO SCH ×2 (08:33→16:13)
[2018-03-08] MEDS: DOCUSATE SODIUM 100 MG CAPSULE. PO PRN (08:33)
[2018-03-08] MEDS: LACTOBACILLUS RHAMNOSUS GG 1 CAPSULE. PO SCH ×2 (08:33→21:12)
[2018-03-08] MEDS: GABAPENTIN 300 MG CAPSULE. PO SCH ×2 (08:33→21:12)
[2018-03-08] MEDS: POLYETHYLENE GLYCOL 3350 17 GM PACKET. PO SCH (08:33)
[2018-03-08] MEDS: CYANOCOBALAMIN (VITAMIN B-12) 1,000 MCG TABLET. PO SCH (08:33)
[2018-03-08] MEDS: NYSTATIN 100,000 UNITS/ML 5 ML ORAL.SUSP. SWSW SCH ×4 (08:33→21:12)
[2018-03-08] MEDS: CITALOPRAM 20 MG TABLET. PO SCH (08:33)
[2018-03-08] MEDS: DOXYCYCLINE HYCLATE 100 MG TABLET PO SCH ×2 (08:34→21:12)
[2018-03-08] MEDS: LISINOPRIL 10 MG TABLET PO SCH (08:34)
[2018-03-08] MEDS: METOPROLOL TART IMMED RELEASE 25 MG TABLET. PO SCH ×2 (08:34→21:13)
[2018-03-08] MEDS: LIDOCAINE (700MG/PATCH) PATCH. TD SCH (08:35)
--- NOTE | 2018-03-08 10:35 | PDOC ---
Infectious Disease Note Subjective Subjective Feels some better. Cough better Occ nausea Mouth better. No F/C/S/rash/V/D Feels tired Still not eating much per her son Vital Sign Vital Signs Vital Signs Date Time Temp Pulse Resp B/P (MAP) Pulse Ox O2 Delivery O2 Flow Rate FiO2 03/08/18 08:35 95 157/88 03/08/18 08:20 Nasal Cannula 3.0 03/08/18 07:00 97.7 16 96 97.7 Physical Exam PHYSICAL EXAM CONSTITUTIONAL: She is alert. She is cooperative. She does look a little better. She is in no acute distress. HEENT: Pupils equal and reactive. Normal conjunctivae. NECK: Supple. LUNGS: Clear - no wheeze HEART: S1, S2 without gross murmur. ABDOMEN: Soft, nontender, nondistended with positive bowel sounds. EXTREMITIES: Without clubbing or cyanosis. No gross edema. SKIN: Warm to touch without generalized rash. NEUROLOGIC: She is nonfocal and appropriate. PSYCHIATRIC: Affect is appropriate. Labs Micro Microbiology 03/03/18 Blood Culture - Preliminary, Resulted NO GROWTH AFTER 2 DAYS Objective Assessment AECOPD Leukocytosis - better Afib PCN allergy - has tolerated Keflex. ? tolerated Amox Thrush Failure to thrive Ongoing tobacco abuse Failure to thrive Plan Plan of Care Discontinue Levoflox (3 doses already) Cont Doxy Cont Cefepime for now Cont Nystatin F/u labs and response F/u strep and legionella antigens Await palliative eval D/w son RAMON SÁNCHEZ MD Mar 08, 2018 10:35
[2018-03-08 11:00] VITALS: BP 132/68
[2018-03-08] MEDS: traMADol 50 MG TABLET PO PRN (11:37)
[2018-03-08] MEDS: AMINO AC 3%/ELECTROLYTE/GLYCER 1,000 ML IV SCH ×2 (11:43→21:11)
--- NOTE | 2018-03-08 13:04 | PDOC2 ---
PALLIATIVE CARE Palliative Care Note Palliative Care Consult requested by Dr. Vera to discuss goals of care Patient admitted with abdominal pain, Hyponatremia, FTT, leukocytosis. pneumonia --antibiotics. PMH chronic pain, COPD--continues to smoke, CVA Home oxygen. Lives with son Ronnie. Discussed with Dr. Petersen and Dr. Fan. Patient alert and oriented. Met with patient and son. Reviewed current medical condition. Patient admits to feeling depressed. Refusing therapy for strengthening Son has noticed greater decline after of her . No appetite--poor po intake. On anti-depressant. Patient is tired of coming to the hospital. Wants to stay home. Albumin 3.0. Will drink ensure with encouragement. Discussed options for care. Home vs Home with HH/PC. PC would allow closer watch for decline and need for comfort care/adjustment of medications and possibly needing hospice in the near future. Discussed Code Status; Patient requests DNR/DNI. Understands without this attempt she likely would . Ronnie/son/DPOA supports her wishes. Outside the Hospital DNR/DNI form signed. Discussed with Dr. Petersen . Will add Abilify to antidepressant. Plan discharge tomorrow. Discussed with João MENDEZ who will assist with discharge plans. JEWELL ROBERTS Mar 08, 2018 13:04
[2018-03-08] MEDS: ANTI-COAG MONITOR BY PHARMACY. MC PRN (14:14)
[2018-03-08 15:00] VITALS: BP 133/74
--- NOTE | 2018-03-08 15:15 | PDOC ---
PROGRESS NOTES Chief Complaint Chief Complaint Left rib cage pain with old fx likely AMS, metabolic encephalopathy likely CAP unsteady gait with frequent fall chronic constipation cough hyponatremia failure to thrive leukocytosis sepsis fibromyalgia htn Afib on eliquis h/o drug seeking behavior chronic pain on tramadol mild malnutrition tobaccoism History of Present Illness History of Present Illness Pt seen and examine, pt had flat affect dw/ RN Vitals Vitals Vital Signs Date Time Temp Pulse Resp B/P (MAP) Pulse Ox O2 Delivery O2 Flow Rate FiO2 03/08/18 12:37 Nasal Cannula 3.0 03/08/18 11:37 96 03/08/18 11:00 97.7 82 16 132/68 (89) 97.7 Physical Exam Physical Exam CONSTITUTIONAL: She is alert. She is cooperative. She does look a little better. She is in no acute distress. HEENT: Pupils equal and reactive. Normal conjunctivae. NECK: Supple. LUNGS: Clear - no wheeze HEART: S1, S2 without gross murmur. ABDOMEN: Soft, nontender, nondistended with positive bowel sounds. EXTREMITIES: Without clubbing or cyanosis. No gross edema. SKIN: Warm to touch without generalized rash. NEUROLOGIC: She is nonfocal and appropriate. PSYCHIATRIC: Affect is appropriate. General: Alert, Cooperative, No acute distress Heart: Regular rate, Normal S1, Normal S2, No murmurs Lungs: Crackles, Other Abdomen: Normal bowel sounds, Soft Extremities: No clubbing, No cyanosis, No edema Skin: No rashes Review of Systems Review of Systems CO decreased appetite CO fatigue Assessment and Plan Assessmemt and Plan Problems Medical Problems: (1) Abdominal pain Status: Acute (2) Failure to thrive Status: Acute (3) Hyponatremia Status: Stable (4) Leukocytosis Status: Acute Left rib cage pain with old fx likely AMS, metabolic encephalopathy likely CAP unsteady gait with frequent fall chronic constipation cough hyponatremia failure to thrive leukocytosis sepsis fibromyalgia htn Afib on eliquis h/o drug seeking behavior chronic pain on tramadol mild malnutrition tobaccoism Plan: add 2.0 mg abilify q daily encourage ambulation home meds Pt/OT discharge to pallitive/home care tmr. Comment Review of Relevant I have reviewed the following items tracy (where applicable) has been applied. Labs Laboratory Tests Test 03/06/18 15:40 03/07/18 03:05 Body Fluid Culture (LAB) Not indicated (.) Urine Legionella Antigen Negative (Negative) Streptococcus pneumoniae Antigen Negative (Negative) Organism Identification (LAB) Not indicated. (.) ABRAM Specimen Source Urine (.) White Blood Count 13.9 x10^3/uL (4.0-11.0) Red Blood Count 3.59 x10^6/uL (3.50-5.40) Hemoglobin 9.4 g/dL (12.0-15.5) Hematocrit 28.4 % (36.0-47.0) Mean Corpuscular Volume 79 fL (79-100) Mean Corpuscular Hemoglobin 26 pg (25-35) Mean Corpuscular Hemoglobin Concent 33 g/dL (31-37) Red Cell Distribution Width 21.2 % (11.5-14.5) Platelet Count 543 x10^3/uL (140-400) Neutrophils (%) (Auto) 63 % (31-73) Lymphocytes (%) (Auto) 23 % (24-48) Monocytes (%) (Auto) 11 % (0-9) Eosinophils (%) (Auto) 2 % (0-3) Basophils (%) (Auto) 0 % (0-3) Neutrophils # (Auto) 8.8 x10^3uL (1.8-7.7) Lymphocytes # (Auto) 3.2 x10^3/uL (1.0-4.8) Monocytes # (Auto) 1.5 x10^3/uL (0.0-1.1) Eosinophils # (Auto) 0.3 x10^3/uL (0.0-0.7) Basophils # (Auto) 0.1 x10^3/uL (0.0-0.2) Sodium Level 135 mmol/L (136-145) Potassium Level 3.7 mmol/L (3.5-5.1) Chloride Level 100 mmol/L (98-107) Carbon Dioxide Level 25 mmol/L (21-32) Anion Gap 10 (6-14) Blood Urea Nitrogen 7 mg/dL (7-20) Creatinine 0.4 mg/dL (0.6-1.0) Estimated GFR (Cockcroft-Gault) 159.2 Glucose Level 115 mg/dL (70-99) Calcium Level 9.6 mg/dL (8.5-10.1) Microbiology 9/21/18 Blood Culture - Final, Complete NO GROWTH AFTER 5 DAYS Medications Current Medications Ondansetron HCl (Zofran) 4 mg 1X ONCE IV Last administered on 03/02/18at 21:17 ; Start 03/02/18 at 20:30; Stop 03/02/18 at 20:31; Status DC Famotidine (Pepcid Vial) 20 mg 1X ONCE IVP Last administered on 03/02/18at 21: 17; Start 03/02/18 at 20:30; Stop 03/02/18 at 20:31; Status DC Sodium Chloride 1,000 ml @ 1,000 mls/hr 1X ONCE IV Last administered on at 21:17; Start 03/02/18 at 20:30; Stop 03/02/18 at 21:29; Status DC Fentanyl Citrate (Fentanyl 2ml Vial) 50 mcg 1X ONCE IV Last administered on at 21:16; Start 03/02/18 at 20:45; Stop 03/02/18 at 20:46; Status DC Iohexol (Omnipaque 300 Mg/ml) 75 ml 1X ONCE IV Last administered on 03/02/18at 20:45; Start 03/02/18 at 20:45; Stop 03/02/18 at 20:50; Status DC Iohexol (Omnipaque 240 Mg/ml) 30 ml 1X ONCE PO Last administered on 03/02/18at 20:45; Start 03/02/18 at 20:45; Stop 03/02/18 at 20:50; Status DC Ondansetron HCl (Zofran) 4 mg PRN Q8HRS PRN IV NAUSEA/VOMITING; Start 03/03/18 at 01:00; Stop 03/03/18 at 17:08; Status DC Apixaban (Eliquis) 5 mg BID PO Last administered on 03/08/18at 08:33; Start at 13:00 Lisinopril (Prinivil) 10 mg DAILY PO Last administered on 03/08/18at 08:34; Start 03/03/18 at 13:00 Metoprolol Tartrate (Lopressor) 25 mg DAILY PO Last administered on 03/05/18at 09:20; Start 03/03/18 at 13:00; Stop 03/05/18 at 10:09; Status DC Oxycodone/ Acetaminophen (Percocet 10/325) 1 tab BID PRN PO SEVERE PAIN Last administered on 03/04/18at 12:41; Start 03/03/18 at 12:30; Stop 03/04/18 at 14:19 ; Status DC Tramadol HCl (Ultram) 2,500 mg PRN Q6HRS PO ; Start 03/03/18 at 12:30; Status UNV Citalopram Hydrobromide (CeleXA) 40 mg DAILY PO Last administered on 03/08/18at 08:33; Start 03/03/18 at 13:00 Gabapentin (Neurontin) 300 mg BID PO Last administered on 03/08/18at 08:33; Start 03/03/18 at 13:00 Lubiprostone (Amitiza) 24 mcg BIDWMEALS PO Last administered on 03/08/18at 08:33 ; Start 03/03/18 at 17:00 Non-Formulary Medication (Melatonin ) 1 tab QHS PO ; Start 03/03/18 at 21:00; Status UNV Pantoprazole Sodium (Protonix) 40 mg BIDAC PO Last administered on 03/08/18at 05 :50; Start 03/03/18 at 16:30 Acetaminophen (Tylenol) 650 mg PRN Q6HRS PRN PO FEVER Last administered on 03/07at 20:40; Start 03/03/18 at 12:30 Ondansetron HCl (Zofran) 4 mg PRN Q6HRS PRN IV NAUSEA/VOMITING Last administered on 03/06/18at 18:00; Start 03/03/18 at 12:30 Morphine Sulfate (Morphine Sulfate) 2 mg PRN Q2HR PRN IV MODERATE TO SEVERE PAIN Last administered on 03/06/18at 07:33; Start 03/03/18 at 12:30 Tramadol HCl (Ultram) 50 mg PRN Q6HRS PRN PO MILD TO MODERATE PAIN; Start 03/03 at 12:30; Status UNV Docusate Sodium (Colace) 100 mg PRN DAILY PRN PO CONSTIPATION; Start 03/03/18 at 12:30; Status UNV Albuterol/ Ipratropium (Duoneb) 3 ml RTQID NEB Last administered on 03/08/18 11:56; Start 03/03/18 at 13:00 Albuterol Sulfate (Ventolin Neb Soln) 2.5 mg PRN Q2HR PRN NEB SHORTNESS OF BREATH; Start 03/03/18 at 12:30 Guaifenesin (Mucinex) 600 mg BID PO Last administered on 03/08/18 08:33; Start 03/03/18 at 13:00 Acetaminophen (Tylenol) 650 mg PRN Q6HRS PRN PO FEVER; Start 03/03/18 at 12:30 ; Status UNV Ondansetron HCl (Zofran) 4 mg PRN Q6HRS PRN IV NAUSEA/VOMITING; Start 03/03/18 at 12:30; Status UNV Morphine Sulfate (Morphine Sulfate) 2 mg PRN Q2HR PRN IV MODERATE TO SEVERE PAIN; Start 03/03/18 at 12:30; Status UNV Tramadol HCl (Ultram) 50 mg PRN Q6HRS PRN PO MILD TO MODERATE PAIN Last administered on 03/08/18at 11:37; Start 03/03/18 at 12:30 Docusate Sodium (Colace) 100 mg PRN DAILY PRN PO CONSTIPATION Last administered on 03/08/18 08:33; Start 03/03/18 at 12:30 Sodium Chloride 1,000 ml @ 100 mls/hr Q10H IV Last administered on 03/08/18 03:00; Start 03/03/18 at 13:00; Stop 03/08/18 at 14:27; Status DC Enoxaparin Sodium (Lovenox 40mg Syringe) 40 mg Q24H SQ ; Start 03/03/18 at 12:30 ; Status UNV Mirtazapine (Remeron) 7.5 mg QHS PO Last administered on 03/07/18 20:40; Start 03/03/18 at 21:00 Lidocaine (Lidoderm) 1 patch DAILY TD Last administered on 03/08/18 08:35; Start 03/03/18 at 13:00 Miscellaneous (Lidoderm Patch Removal) 1 ea QHS MC Last administered on 19:40; Start 03/03/18 at 21:00 Levofloxacin/ Dextrose 150 ml @ 100 mls/hr Q24H IV Last administered on 9/23/ 18at 17:56; Start 03/03/18 at 16:00; Stop 03/06/18 at 11:13; Status DC Lactobacillus Rhamnosus (Culturelle) 1 cap BID PO Last administered on at 08:33; Start 03/03/18 at 21:00 Throat Lozenges (Chloraseptic) 1 spray PRN Q2HR PRN PO SORE THROAT, 2ND CHOICE ; Start 03/04/18 at 09:15 Throat Lozenges (Cepacol Sore Throat Lozenge) 1 judith PRN Q2HRS PRN PO SORE THROAT, 1ST CHOICE Last administered on 03/05/18at 20:58; Start 03/04/18 at 09:15 Cyanocobalamin (Vitamin B-12) 1,000 mcg DAILY PO Last administered on 08:33; Start 03/05/18 at 09:00 Diltiazem HCl (Cardizem 24hr Cd) 300 mg DAILY PO Last administered on 08:35; Start 03/04/18 at 11:00 Non-Formulary Medication (Mirtazapine ) 7.5 mg QHS PO ; Start 03/04/18 at 21:00 ; Status UNV Sennosides (Senna) 8.6 mg PRN BID PRN PO CONSTIPATION (2nd Choice) Last administered on 03/06/18at 17:13; Start 03/04/18 at 11:00 Info (Anti-Coagulation Monitoring By Pharmacy) 1 each PRN DAILY PRN MC SEE COMMENTS Last administered on 03/08/18at 14:14; Start 03/04/18 at 13:45 Oxycodone/ Acetaminophen (Percocet 10/325) 1 tab PRN BID PRN PO SEVERE PAIN Last administered on 03/08/18 05:51; Start 03/04/18 at 14:30 Metoprolol Tartrate (Lopressor) 25 mg BID PO Last administered on 03/08/18at 08: 34; Start 03/05/18 at 21:00 Metoprolol Tartrate (Lopressor Vial) 5 mg 1X ONCE IVP ; Start 03/05/18 at 10:30 ; Stop 03/05/18 at 10:31; Status DC Amino Acids/ Glycerin/ Electrolytes 1,000 ml @ 80 mls/hr [id number] IV Last administered on 03/08/18at 11:43; Start 03/05/18 at 18:30 Doxycycline Hyclate (Vibra-Tab) 100 mg BID PO Last administered on 03/08/18at 08 :34; Start 03/06/18 at 12:00 Cefepime HCl 1 gm/ Dextrose 50 ml @ 100 mls/hr Q8HRS IV ; Start 03/06/18 at 14: 00; Status UNV Nystatin (Nystatin Oral Susp) 5 ml [id number] Last administered on 03/08/18at 14:36; Start 03/06/18 at 13:00 Cefepime HCl (Maxipime) 1 gm Q8HRS IVP Last administered on 03/08/18at 14:36; Start 03/06/18 at 12:00 Polyethylene Glycol (miraLAX PACKET) 17 gm DAILY PO Last administered on at 08:33; Start 03/07/18 at 20:00 Active Scripts Active Lisinopril 10 Mg Tablet 1 Tab PO DAILY Tramadol Hcl 50 Mg Tablet 50 Tab PO PRN Q6HRS Celexa (Citalopram Hydrobromide) 40 Mg Tablet 40 Mg PO DAILY Reported Cardizem Cd (Diltiazem Hcl) 360 Mg Cap.er.24h 300 Mg PO DAILY Senokot (Sennosides) 8.6 Mg Tablet 1 Tab PO PRN BID Mirtazapine 15 Mg Tablet 7.5 Mg PO QHS Milk Of Magnesia (Magnesium Hydroxide) 2,400 Mg/10 Ml Oral.susp 2,400 Mg PO Cyanocobalamin Injection (Cyanocobalamin (Vitamin B-12)) 1,000 Mcg/1 Ml Vial 1 Ml IM QMONTH Vitamin B-12 (Cyanocobalamin (Vitamin B-12)) 1,000 Mcg Tablet 1 Tab PO DAILY Alum-Mag Hydroxide-Simeth Liq (Mag Hydrox/Al Hydrox/Simeth) 360 Ml Oral.susp 360 Ml PO Albuterol Sulfate Conc Neb Soln (Albuterol Sulfate) 2.5 Mg/0.5 Ml Vial.neb 1 Vial NEB Q6HRS Metoprolol Tartrate 25 Mg Tablet 1 Tab PO DAILY Melatonin 3 Mg Tablet 1 Tab PO QHS Lidocaine 1 Each Adh..patch 1 Each TP Levsin (Hyoscyamine Sulfate) 0.125 Mg Tablet 1 Tab PO TID PRN Percocet 10-325 Mg Tablet (Oxycodone/Acetaminophen) 1 Each Tablet 1 Tab PO BID PRN Amitiza (Lubiprostone) 24 Mcg Capsule 1 Cap PO BID Acetaminophen 500 Mg Tablet 2 Tab PO Q6HRS Eliquis (Apixaban) 5 Mg Tablet 5 Mg PO BID Gabapentin 300 Mg Capsule 300 Mg PO BID Omeprazole 40 Mg Capsule.dr 40 Mg PO BID LAST DOSE GIVEN: DATE: today we use Pantaprozole (Protonix) TIME: 8:30 AM NEXT DOSE DUE: DATE: tomorrow morning Vitals/I & O Vital Sign - Last 24 Hours 03/07/18 03/07/18 03/07/18 03/07/18 15:17 17:57 19:00 20:00 Temp 99.1 99.1 Pulse 94 Resp 16 B/P (MAP) 140/84 (102) Pulse Ox 97 O2 Delivery Nasal Cannula Room Air Nasal Cannula Nasal Cannula O2 Flow Rate 3.0 3.0 3.0 03/07/18 03/07/18 03/07/18 03/07/18 20:25 20:40 20:41 23:00 Temp 99.1 99.1 Pulse 94 83 Resp 16 B/P (MAP) 140/84 149/81 (103) Pulse Ox 96 O2 Delivery Nasal Cannula Room Air Nasal Cannula O2 Flow Rate 3.0 3.0 03/08/18 03/08/18 03/08/18 03/08/18 03:00 05:51 06:58 07:00 Temp 99.1 97.7 99.1 97.7 Pulse 92 95 Resp 16 16 B/P (MAP) 161/93 (115) 157/88 (111) Pulse Ox 98 96 O2 Delivery Nasal Cannula Nasal Cannula Nasal Cannula Nasal Cannula O2 Flow Rate 3.0 3.0 3.0 3.0 03/08/18 03/08/18 03/08/18 03/08/18 07:45 08:20 08:34 08:34 Pulse 95 95 B/P (MAP) 157/88 157/88 O2 Delivery Nasal Cannula Nasal Cannula O2 Flow Rate 3.0 3.0 03/08/18 03/08/18 03/08/18 03/08/18 08:35 11:00 11:37 11:56 Temp 97.7 97.7 Pulse 95 82 Resp 16 B/P (MAP) 157/88 132/68 (89) Pulse Ox 97 96 O2 Delivery Room Air Nasal Cannula Nasal Cannula O2 Flow Rate 3.0 3.0 03/08/18 12:37 O2 Delivery Nasal Cannula O2 Flow Rate 3.0 Intake and Output 03/07/18 03/07/18 03/08/18 15:00 23:00 07:00 Output Total 400 ml 300 ml Balance -400 ml -300 ml Nutrition Consultation Dietary Evaluation: Recommendations by RD: Increase Calorie Intake, Protein supplementation, PPN/ TPN Comments: offer supplement of choice/ encourage po intake continue PPN at this time Expected Outcomes/Goals: to meet > 75% est nutr needs via po intake- not met, goal ongoing Interpretation of weight loss: >10% in 6 months Malnutrition Findings: Weight Status: Appropriate GENEVIEVE ARVIZU III, DO Mar 08, 2018 15:15
[2018-03-08] MEDS: ARIPiprazole 2 MG TABLET PO SCH (16:13)
--- NOTE | 2018-03-08 16:17 | PDOC ---
PULMONARY PROGRESS NOTES Subjective NOT MORE SOA Vitals Vital Signs Date Time Temp Pulse Resp B/P (MAP) Pulse Ox O2 Delivery O2 Flow Rate FiO2 03/08/18 16:00 Nasal Cannula 3.0 03/08/18 15:00 97.7 93 16 133/74 (93) 94 97.7 General: Alert Lungs: Crackles, Other Cardiovascular: S1 Abdomen: Soft Neuro Exam: Alert Extremities: No Edema Skin: Warm Labs Laboratory Tests Test 03/07/18 03:05 White Blood Count 13.9 x10^3/uL (4.0-11.0) Red Blood Count 3.59 x10^6/uL (3.50-5.40) Hemoglobin 9.4 g/dL (12.0-15.5) Hematocrit 28.4 % (36.0-47.0) Mean Corpuscular Volume 79 fL (79-100) Mean Corpuscular Hemoglobin 26 pg (25-35) Mean Corpuscular Hemoglobin Concent 33 g/dL (31-37) Red Cell Distribution Width 21.2 % (11.5-14.5) Platelet Count 543 x10^3/uL (140-400) Neutrophils (%) (Auto) 63 % (31-73) Lymphocytes (%) (Auto) 23 % (24-48) Monocytes (%) (Auto) 11 % (0-9) Eosinophils (%) (Auto) 2 % (0-3) Basophils (%) (Auto) 0 % (0-3) Neutrophils # (Auto) 8.8 x10^3uL (1.8-7.7) Lymphocytes # (Auto) 3.2 x10^3/uL (1.0-4.8) Monocytes # (Auto) 1.5 x10^3/uL (0.0-1.1) Eosinophils # (Auto) 0.3 x10^3/uL (0.0-0.7) Basophils # (Auto) 0.1 x10^3/uL (0.0-0.2) Sodium Level 135 mmol/L (136-145) Potassium Level 3.7 mmol/L (3.5-5.1) Chloride Level 100 mmol/L (98-107) Carbon Dioxide Level 25 mmol/L (21-32) Anion Gap 10 (6-14) Blood Urea Nitrogen 7 mg/dL (7-20) Creatinine 0.4 mg/dL (0.6-1.0) Estimated GFR (Cockcroft-Gault) 159.2 Glucose Level 115 mg/dL (70-99) Calcium Level 9.6 mg/dL (8.5-10.1) Medications Active Scripts Medications Dose Route/Sig Max Daily Dose Days Date Category Dose Instructions Senokot (Sennosides) 8.6 Mg Tablet 1 Tab PO PRN BID 03/03/18 Reported Mirtazapine 15 Mg Tablet 7.5 Mg PO QHS 03/03/18 Reported Milk Of Magnesia (Magnesium Hydroxide) 2,400 Mg/10 Ml Oral.susp 2,400 Mg PO 03/03/18 Reported Cardizem Cd (Diltiazem Hcl) 360 Mg Cap.er.24h 300 Mg PO BID 03/03/18 Reported Cyanocobalamin Injection (Cyanocobalamin (Vitamin B-12)) 1,000 Mcg/1 Ml Vial 1 Ml IM QMONTH 03/03/18 Reported Vitamin B-12 (Cyanocobalamin (Vitamin B-12)) 1,000 Mcg Tablet 1 Tab PO DAILY 03/03/18 Reported Alum-Mag Hydroxide-Simeth Liq (Mag Hydrox/Al Hydrox/Simeth) 360 Ml Oral.susp 360 Ml PO 03/03/18 Reported Albuterol Sulfate Conc Neb Soln (Albuterol Sulfate) 2.5 Mg/0.5 Ml Vial.neb 1 Vial NEB Q6HRS 03/03/18 Reported Metoprolol Tartrate 25 Mg Tablet 1 Tab PO DAILY 03/03/18 Reported Melatonin 3 Mg Tablet 1 Tab PO QHS 03/03/18 Reported Lidocaine 1 Each Adh..patch 1 Each TP 03/03/18 Reported Levsin (Hyoscyamine Sulfate) 0.125 Mg Tablet 1 Tab PO TID PRN 03/03/18 Reported Percocet 10-325 Mg Tablet (Oxycodone/Acetaminophen) 1 Each Tablet 1 Tab PO BID PRN 03/03/18 Reported Amitiza (Lubiprostone) 24 Mcg Capsule 1 Cap PO BID 03/03/18 Reported Acetaminophen 500 Mg Tablet 2 Tab PO Q6HRS 03/03/18 Reported Lisinopril 10 Mg Tablet 1 Tab PO DAILY 05/30/17 Rx Eliquis (Apixaban) 5 Mg Tablet 5 Mg PO BID 05/26/17 Reported Gabapentin 300 Mg Capsule 300 Mg PO BID 05/26/17 Reported Tramadol Hcl 50 Mg Tablet 50 Tab PO PRN Q6HRS 02/09/15 Rx Celexa (Citalopram Hydrobromide) 40 Mg Tablet 40 Mg PO DAILY 09/26/14 Rx Omeprazole 40 Mg Capsule.dr 40 Mg PO BID 02/04/14 Reported LAST DOSE GIVEN: DATE: today we use Pantaprozole (Protonix) TIME: 8:30 AM NEXT DOSE DUE: DATE: tomorrow morning Impression . 1. Abnormal CT chest consistent with pneumonia. 2. Cough with yellow sputum production and CT chest findings compatible with pneumonia, suspect gram-negative. 3. Underlying chronic obstructive pulmonary disease, which is with chronic hypoxic respiratory failure, on home oxygen at 3.5 liters, was currently on 2.5 liters. 4. Abdominal pain per PCP. 5. Aflutter today CT CHEST IMPRESSION: 1. There is right lower lobe infiltrate at the lung base and small right pleural effusion, also some patchy minimal right middle lobe infiltrate and subtle groundglass infiltrate of the left upper lobe. 2. 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 3. There is emphysema. 4. There is coronary calcification. Plan . ANTIBX PER ID, HOME WHEN OK WITH ID d/w PAT PT WANTS TO GO HOME WITH H/H POSSIBLE HOSPICE [place] BUCK MD Mar 08, 2018 16:17
[2018-03-08] MEDS: ACETAMINOPHEN 325 MG TABLET. PO PRN (17:24)
[2018-03-08 19:00] VITALS: BP 153/76
[2018-03-08] MEDS: PATCH REMOVAL. MC SCH (21:00)
[2018-03-08] MEDS: MIRTAZAPINE 7.5 MG TABLET. PO SCH (21:12)
[2018-03-08] MEDS: ONDANSETRON PF 4 MG/2 ML VIAL. IV PRN (22:34)
[2018-03-08 23:00] VITALS: BP 155/84
[2018-03-09 03:00] VITALS: BP 163/96
[2018-03-09] MEDS: CEFEPIME HCL IV Push 1 GM VIAL. IVP SCH (05:24)
[2018-03-09] MEDS: PANTOPRAZOLE 40 MG TABLET.DR. PO SCH (05:28)
[2018-03-09 07:00] VITALS: BP 155/88
[2018-03-09] MEDS: IPRATRPIUM/ALBUTEROL 0.5/2.5MG 3 ML NEBU. NEB SCH ×3 (07:23→15:50)
--- NOTE | 2018-03-09 07:37 | PDOC2 ---
PALLIATIVE CARE Palliative Care Note Palliative Care Patient resting. Plan Home with Palliative Home Health today. João MENDEZ is assisting with selection of agency and discharge plan. JEWELL ROBERTS Mar 09, 2018 07:37
[2018-03-09] MEDS: LACTOBACILLUS RHAMNOSUS GG 1 CAPSULE. PO SCH (08:40)
[2018-03-09] MEDS: GABAPENTIN 300 MG CAPSULE. PO SCH (08:40)
[2018-03-09] MEDS: LUBIPROSTONE 8 MCG CAPSULE PO SCH (08:40)
[2018-03-09] MEDS: DOXYCYCLINE HYCLATE 100 MG TABLET PO SCH (08:40)
[2018-03-09] MEDS: NYSTATIN 100,000 UNITS/ML 5 ML ORAL.SUSP. SWSW SCH ×2 (08:40→14:03)
[2018-03-09] MEDS: DOCUSATE SODIUM 100 MG CAPSULE. PO PRN (08:40)
[2018-03-09] MEDS: APIXABAN 5 MG TABLET. PO SCH (08:40)
[2018-03-09] MEDS: ARIPiprazole 2 MG TABLET PO SCH (08:40)
[2018-03-09] MEDS: CITALOPRAM 20 MG TABLET. PO SCH (08:40)
[2018-03-09] MEDS: POLYETHYLENE GLYCOL 3350 17 GM PACKET. PO SCH (08:40)
[2018-03-09] MEDS: METOPROLOL TART IMMED RELEASE 25 MG TABLET. PO SCH (08:41)
[2018-03-09] MEDS: LISINOPRIL 10 MG TABLET PO SCH (08:41)
[2018-03-09] MEDS: CYANOCOBALAMIN (VITAMIN B-12) 1,000 MCG TABLET. PO SCH (08:41)
[2018-03-09] MEDS: LIDOCAINE (700MG/PATCH) PATCH. TD SCH (08:42)
[2018-03-09] MEDS: ONDANSETRON PF 4 MG/2 ML VIAL. IV PRN (09:38)
--- NOTE | 2018-03-09 09:46 | PDOC ---
PROGRESS NOTES Chief Complaint Chief Complaint RLL pneumonia w/ small pleural effusion Left rib cage pain with old fx likely AMS, metabolic encephalopathy likely CAP unsteady gait with frequent fall chronic constipation cough hyponatremia failure to thrive leukocytosis sepsis fibromyalgia htn Afib on eliquis h/o drug seeking behavior chronic pain on tramadol mild malnutrition tobaccoism History of Present Illness History of Present Illness Pt seen and examine, pt had flat affect w/ depressed mood and laying in the position dw/ RN Vitals Vitals Vital Signs Date Time Temp Pulse Resp B/P (MAP) Pulse Ox O2 Delivery O2 Flow Rate FiO2 03/09/18 08:46 99 155/88 03/09/18 08:00 Nasal Cannula 3.0 03/09/18 07:25 98 03/09/18 07:00 97.7 16 97.7 Physical Exam Physical Exam CONSTITUTIONAL: She is alert. She is cooperative. She does look a little better. She is in no acute distress. HEENT: Pupils equal and reactive. Normal conjunctivae. NECK: Supple. LUNGS: Clear - no wheeze HEART: S1, S2 without gross murmur. ABDOMEN: Soft, nontender, nondistended with positive bowel sounds. EXTREMITIES: Without clubbing or cyanosis. No gross edema. SKIN: Warm to touch without generalized rash. NEUROLOGIC: She is nonfocal and appropriate. PSYCHIATRIC: Affect is appropriate. General: Alert, Cooperative, No acute distress Heart: Regular rate, Normal S1, Normal S2, No murmurs Lungs: Crackles, Other Abdomen: Normal bowel sounds, Soft Extremities: No clubbing, No cyanosis, No edema Skin: No rashes Review of Systems Review of Systems CO stomach ache, denies diarrhea Co fatigue CO weakness Assessment and Plan Assessmemt and Plan Problems Medical Problems: (1) Abdominal pain Status: Acute (2) Failure to thrive Status: Acute (3) Hyponatremia Status: Acute (4) Leukocytosis Status: Acute RLL pneumonia w/ small right pleural effusion Left rib cage pain with old fx likely AMS, metabolic encephalopathy likely CAP unsteady gait with frequent fall chronic constipation cough hyponatremia failure to thrive leukocytosis sepsis fibromyalgia htn Afib on eliquis h/o drug seeking behavior chronic pain on tramadol mild malnutrition tobaccoism Plan: Cardiac monitoring PPN PT/OT Home Meds Discharge to palliative [facility] today Comment Review of Relevant I have reviewed the following items tracy (where applicable) has been applied. Labs Microbiology 03/03/18 Blood Culture - Final, Complete NO GROWTH AFTER 5 DAYS Medications Current Medications Ondansetron HCl (Zofran) 4 mg 1X ONCE IV Last administered on 03/02/18at 21:17 ; Start 03/02/18 at 20:30; Stop 03/02/18 at 20:31; Status DC Famotidine (Pepcid Vial) 20 mg 1X ONCE IVP Last administered on 03/02/18at 21: 17; Start 03/02/18 at 20:30; Stop 03/02/18 at 20:31; Status DC Sodium Chloride 1,000 ml @ 1,000 mls/hr 1X ONCE IV Last administered on at 21:17; Start 03/02/18 at 20:30; Stop 03/02/18 at 21:29; Status DC Fentanyl Citrate (Fentanyl 2ml Vial) 50 mcg 1X ONCE IV Last administered on at 21:16; Start 03/02/18 at 20:45; Stop 03/02/18 at 20:46; Status DC Iohexol (Omnipaque 300 Mg/ml) 75 ml 1X ONCE IV Last administered on 03/02/18at 20:45; Start 03/02/18 at 20:45; Stop 03/02/18 at 20:50; Status DC Iohexol (Omnipaque 240 Mg/ml) 30 ml 1X ONCE PO Last administered on 03/02/18at 20:45; Start 03/02/18 at 20:45; Stop 03/02/18 at 20:50; Status DC Ondansetron HCl (Zofran) 4 mg PRN Q8HRS PRN IV NAUSEA/VOMITING; Start 03/03/18 at 01:00; Stop 03/03/18 at 17:08; Status DC Apixaban (Eliquis) 5 mg BID PO Last administered on 03/09/18at 08:40; Start at 13:00 Lisinopril (Prinivil) 10 mg DAILY PO Last administered on 03/09/18at 08:41; Start 03/03/18 at 13:00 Metoprolol Tartrate (Lopressor) 25 mg DAILY PO Last administered on 03/05/18at 09:20; Start 03/03/18 at 13:00; Stop 03/05/18 at 10:09; Status DC Oxycodone/ Acetaminophen (Percocet 10/325) 1 tab BID PRN PO SEVERE PAIN Last administered on 03/04/18at 12:41; Start 03/03/18 at 12:30; Stop 03/04/18 at 14:19 ; Status DC Tramadol HCl (Ultram) 2,500 mg PRN Q6HRS PO ; Start 03/03/18 at 12:30; Status UNV Citalopram Hydrobromide (CeleXA) 40 mg DAILY PO Last administered on 03/09/18at 08:40; Start 03/03/18 at 13:00 Gabapentin (Neurontin) 300 mg BID PO Last administered on 03/09/18at 08:40; Start 03/03/18 at 13:00 Lubiprostone (Amitiza) 24 mcg BIDWMEALS PO Last administered on 03/09/18at 08:40 ; Start 03/03/18 at 17:00 Non-Formulary Medication (Melatonin ) 1 tab QHS PO ; Start 03/03/18 at 21:00; Status UNV Pantoprazole Sodium (Protonix) 40 mg BIDAC PO Last administered on 03/09/18at 05 :28; Start 03/03/18 at 16:30 Acetaminophen (Tylenol) 650 mg PRN Q6HRS PRN PO FEVER Last administered on 03/08at 17:24; Start 03/03/18 at 12:30 Ondansetron HCl (Zofran) 4 mg PRN Q6HRS PRN IV NAUSEA/VOMITING Last administered on 03/08/18at 22:34; Start 03/03/18 at 12:30 Morphine Sulfate (Morphine Sulfate) 2 mg PRN Q2HR PRN IV MODERATE TO SEVERE PAIN Last administered on 03/06/18at 07:33; Start 03/03/18 at 12:30 Tramadol HCl (Ultram) 50 mg PRN Q6HRS PRN PO MILD TO MODERATE PAIN; Start 03/03 at 12:30; Status UNV Docusate Sodium (Colace) 100 mg PRN DAILY PRN PO CONSTIPATION; Start 03/03/18 at 12:30; Status UNV Albuterol/ Ipratropium (Duoneb) 3 ml RTQID NEB Last administered on 03/09/18 07:23; Start 03/03/18 at 13:00 Albuterol Sulfate (Ventolin Neb Soln) 2.5 mg PRN Q2HR PRN NEB SHORTNESS OF BREATH; Start 03/03/18 at 12:30 Guaifenesin (Mucinex) 600 mg BID PO Last administered on 03/09/18at 08:40; Start 03/03/18 at 13:00 Acetaminophen (Tylenol) 650 mg PRN Q6HRS PRN PO FEVER; Start 03/03/18 at 12:30 ; Status UNV Ondansetron HCl (Zofran) 4 mg PRN Q6HRS PRN IV NAUSEA/VOMITING; Start 03/03/18 at 12:30; Status UNV Morphine Sulfate (Morphine Sulfate) 2 mg PRN Q2HR PRN IV MODERATE TO SEVERE PAIN; Start 03/03/18 at 12:30; Status UNV Tramadol HCl (Ultram) 50 mg PRN Q6HRS PRN PO MILD TO MODERATE PAIN Last administered on 03/08/18at 11:37; Start 03/03/18 at 12:30 Docusate Sodium (Colace) 100 mg PRN DAILY PRN PO CONSTIPATION Last administered on 03/09/18at 08:40; Start 03/03/18 at 12:30 Sodium Chloride 1,000 ml @ 100 mls/hr Q10H IV Last administered on 03/08/18at 03:00; Start 03/03/18 at 13:00; Stop 03/08/18 at 14:27; Status DC Enoxaparin Sodium (Lovenox 40mg Syringe) 40 mg Q24H SQ ; Start 03/03/18 at 12:30 ; Status UNV Mirtazapine (Remeron) 7.5 mg QHS PO Last administered on 03/08/18at 21:12; Start 03/03/18 at 21:00 Lidocaine (Lidoderm) 1 patch DAILY TD Last administered on 03/09/18at 08:42; Start 03/03/18 at 13:00 Miscellaneous (Lidoderm Patch Removal) 1 ea QHS MC Last administered on at 21:00; Start 03/03/18 at 21:00 Levofloxacin/ Dextrose 150 ml @ 100 mls/hr Q24H IV Last administered on 17:56; Start 03/03/18 at 16:00; Stop 03/06/18 at 11:13; Status DC Lactobacillus Rhamnosus (Culturelle) 1 cap BID PO Last administered on at 08:40; Start 03/03/18 at 21:00 Throat Lozenges (Chloraseptic) 1 spray PRN Q2HR PRN PO SORE THROAT, 2ND CHOICE ; Start 03/04/18 at 09:15 Throat Lozenges (Cepacol Sore Throat Lozenge) 1 judith PRN Q2HRS PRN PO SORE THROAT, 1ST CHOICE Last administered on 03/05/18at 20:58; Start 03/04/18 at 09:15 Cyanocobalamin (Vitamin B-12) 1,000 mcg DAILY PO Last administered on 08:41; Start 03/05/18 at 09:00 Diltiazem HCl (Cardizem 24hr Cd) 300 mg DAILY PO Last administered on 08:46; Start 03/04/18 at 11:00 Non-Formulary Medication (Mirtazapine ) 7.5 mg QHS PO ; Start 03/04/18 at 21:00 ; Status UNV Sennosides (Senna) 8.6 mg PRN BID PRN PO CONSTIPATION (2nd Choice) Last administered on 03/06/18 17:13; Start 03/04/18 at 11:00 Info (Anti-Coagulation Monitoring By Pharmacy) 1 each PRN DAILY PRN MC SEE COMMENTS Last administered on 03/08/18at 14:14; Start 03/04/18 at 13:45 Oxycodone/ Acetaminophen (Percocet 10/325) 1 tab PRN BID PRN PO SEVERE PAIN Last administered on 03/08/18 05:51; Start 03/04/18 at 14:30 Metoprolol Tartrate (Lopressor) 25 mg BID PO Last administered on 03/09/18at 08: 41; Start 03/05/18 at 21:00 Metoprolol Tartrate (Lopressor Vial) 5 mg 1X ONCE IVP ; Start 03/05/18 at 10:30 ; Stop 03/05/18 at 10:31; Status DC Amino Acids/ Glycerin/ Electrolytes 1,000 ml @ 80 mls/hr [id number] IV Last administered on 03/08/18at 21:11; Start 03/05/18 at 18:30 Doxycycline Hyclate (Vibra-Tab) 100 mg BID PO Last administered on 03/09/18at 08 :40; Start 03/06/18 at 12:00 Cefepime HCl 1 gm/ Dextrose 50 ml @ 100 mls/hr Q8HRS IV ; Start 03/06/18 at 14: 00; Status UNV Nystatin (Nystatin Oral Susp) 5 ml [id number] Last administered on 03/09/18at 08:40; Start 03/06/18 at 13:00 Cefepime HCl (Maxipime) 1 gm Q8HRS IVP Last administered on 03/09/18at 05:24; Start 03/06/18 at 12:00 Polyethylene Glycol (miraLAX PACKET) 17 gm DAILY PO Last administered on at 08:40; Start 03/07/18 at 20:00 Aripiprazole (Abilify) 2 mg DAILY PO Last administered on 03/09/18at 08:40; Start 03/08/18 at 16:00 Active Scripts Active Lisinopril 10 Mg Tablet 1 Tab PO DAILY Tramadol Hcl 50 Mg Tablet 50 Tab PO PRN Q6HRS Celexa (Citalopram Hydrobromide) 40 Mg Tablet 40 Mg PO DAILY Reported Cardizem Cd (Diltiazem Hcl) 360 Mg Cap.er.24h 300 Mg PO DAILY Senokot (Sennosides) 8.6 Mg Tablet 1 Tab PO PRN BID Mirtazapine 15 Mg Tablet 7.5 Mg PO QHS Milk Of Magnesia (Magnesium Hydroxide) 2,400 Mg/10 Ml Oral.susp 2,400 Mg PO Cyanocobalamin Injection (Cyanocobalamin (Vitamin B-12)) 1,000 Mcg/1 Ml Vial 1 Ml IM QMONTH Vitamin B-12 (Cyanocobalamin (Vitamin B-12)) 1,000 Mcg Tablet 1 Tab PO DAILY Alum-Mag Hydroxide-Simeth Liq (Mag Hydrox/Al Hydrox/Simeth) 360 Ml Oral.susp 360 Ml PO Albuterol Sulfate Conc Neb Soln (Albuterol Sulfate) 2.5 Mg/0.5 Ml Vial.neb 1 Vial NEB Q6HRS Metoprolol Tartrate 25 Mg Tablet 1 Tab PO DAILY Melatonin 3 Mg Tablet 1 Tab PO QHS Lidocaine 1 Each Adh..patch 1 Each TP Levsin (Hyoscyamine Sulfate) 0.125 Mg Tablet 1 Tab PO TID PRN Percocet 10-325 Mg Tablet (Oxycodone/Acetaminophen) 1 Each Tablet 1 Tab PO BID PRN Amitiza (Lubiprostone) 24 Mcg Capsule 1 Cap PO BID Acetaminophen 500 Mg Tablet 2 Tab PO Q6HRS Eliquis (Apixaban) 5 Mg Tablet 5 Mg PO BID Gabapentin 300 Mg Capsule 300 Mg PO BID Omeprazole 40 Mg Capsule.dr 40 Mg PO BID LAST DOSE GIVEN: DATE: today we use Pantaprozole (Protonix) TIME: 8:30 AM NEXT DOSE DUE: DATE: tomorrow morning Vitals/I & O Vital Sign - Last 24 Hours 03/08/18 03/08/18 03/08/18 03/08/18 11:00 11:37 11:56 12:37 Temp 97.7 97.7 Pulse 82 Resp 16 B/P (MAP) 132/68 (89) Pulse Ox 97 96 O2 Delivery Room Air Nasal Cannula Nasal Cannula Nasal Cannula O2 Flow Rate 3.0 3.0 3.0 03/08/18 03/08/18 03/08/18 03/08/18 15:00 16:00 19:00 19:30 Temp 97.7 98.1 97.7 98.1 Pulse 93 103 Resp 16 18 B/P (MAP) 133/74 (93) 153/76 (101) Pulse Ox 94 95 96 O2 Delivery Room Air Nasal Cannula Room Air Nasal Cannula O2 Flow Rate 3.0 3.0 03/08/18 03/08/18 03/08/18 03/09/18 19:48 21:13 23:00 03:00 Temp 97.5 97.9 97.5 97.9 Pulse 103 89 94 Resp 18 18 B/P (MAP) 153/76 155/84 (107) 163/96 (118) Pulse Ox 97 93 O2 Delivery Nasal Cannula Room Air Room Air O2 Flow Rate 3.0 03/09/18 03/09/18 03/09/18 03/09/18 07:00 07:25 08:00 08:41 Temp 97.7 97.7 Pulse 99 99 Resp 16 B/P (MAP) 155/88 (110) 155/88 Pulse Ox 100 98 O2 Delivery Nasal Cannula Nasal Cannula Nasal Cannula O2 Flow Rate 3.0 3.0 3.0 03/09/18 03/09/18 08:41 08:46 Pulse 99 99 B/P (MAP) 155/88 155/88 Intake and Output 03/08/18 03/08/18 03/09/18 15:00 23:00 07:00 Intake Total 1000 ml 0 ml Balance 1000 ml 0 ml Nutrition Consultation Dietary Evaluation: Recommendations by RD: Increase Calorie Intake, Protein supplementation, PPN/ TPN Comments: offer supplement of choice/ encourage po intake continue PPN at this time Expected Outcomes/Goals: to meet > 75% est nutr needs via po intake- not met, goal ongoing Interpretation of weight loss: >10% in 6 months Malnutrition Findings: Weight Status: Appropriate GENEVIEVE ARVIZU III DO Mar 09, 2018 09:46
[2018-03-09] MEDS: AMINO AC 3%/ELECTROLYTE/GLYCER 1,000 ML IV SCH (10:00)
[2018-03-09 11:00] VITALS: BP 124/79
--- NOTE | 2018-03-09 11:07 | PDOC ---
Infectious Disease Note Subjective Subjective Feels some better. Mouth better. No F/C/S/rash/V/D Feels tired but some better ROS ROS o/w neg Vital Sign Vital Signs Vital Signs Date Time Temp Pulse Resp B/P (MAP) Pulse Ox O2 Delivery O2 Flow Rate FiO2 03/09/18 08:46 99 155/88 03/09/18 08:00 Nasal Cannula 3.0 03/09/18 07:25 98 03/09/18 07:00 97.7 16 97.7 Physical Exam PHYSICAL EXAM CONSTITUTIONAL: She is alert. She is cooperative. She does look a little better. She is in no acute distress. HEENT: Pupils equal and reactive. Normal conjunctivae. NECK: Supple. LUNGS: Clear - no wheeze HEART: S1, S2 without gross murmur. ABDOMEN: Soft, nontender, nondistended with positive bowel sounds. EXTREMITIES: Without clubbing or cyanosis. No gross edema. SKIN: Warm to touch without generalized rash. NEUROLOGIC: She is nonfocal and appropriate. PSYCHIATRIC: Affect is appropriate. Labs Micro Microbiology 03/03/18 Blood Culture - Preliminary, Resulted NO GROWTH AFTER 2 DAYS Objective Assessment AECOPD Leukocytosis - better Afib PCN allergy - has tolerated Keflex. ? tolerated Amox Thrush Failure to thrive Ongoing tobacco abuse Failure to thrive Plan Plan of Detention with palliative today Cont Doxy for 4 more days Discont Cefepime can d/c home with Cefpodoxime for 7 more days Cont Nystatin for 7 more days D/w nursing RAMON SÁNCHEZ MD Mar 09, 2018 11:07
--- NOTE | 2018-03-09 11:44 | DISCH ---
DISCHARGE WITH HOME HEALTH DISCHARGE INFORMATION: Final Diagnosis: Problems Medical Problems: (1) Abdominal pain Status: Acute (2) Failure to thrive Status: Acute (3) Hyponatremia Status: Acute (4) Leukocytosis Status: Acute Condition on Discharge: Stable CODE STATUS: Code Status: Full HOME HEALTH: Face to Face: I certify this patient is under my care and that I, or a nurse practitioner or physician's physician office assistant working with me, had a face to face encounter that meets the physician face to face encounter requirements with this patient on []. Physical Therapy For: Evalulation/Treatment Occupational Therapy For: Evaluation/Treatment Home Health Aide For: Self-care Pt Meets Homebound Status: Poor coordination w/ amb. POST DISCHARGE ORDERS: Activity Instructions for Disc: Activity as tolerated Weight Bearing Status after Di: As tolerated DIET AFTER DISCHARGE: Cardiac CHECKS AFTER DISCHARGE: Checks after discharge: Check blood press - daily, Check your Temp as needed TREATMENT/EQUIPMENT ORDERS: Adaptive Equipment Issued: None CERTIFICATION STATEMENT: Certification Statement: Certification Statement: Based on the above finding, I certify that this patient is confined to the home and needs intermittent halfway care, physical therapy and/or speech therapy, or continues to need occupational therapy.~ This patient is under my care, and I have initiated the establishment of the plan of care.~ This patient will be followed by myself or a community physician who will periodically review the plan of care. Home Meds Active Scripts Lisinopril (LISINOPRIL) 10 Mg Tablet, 1 TAB PO DAILY, #30 TAB 5 Refills Prov:PAULA DEGROOT MD 05/30/17 Tramadol Hcl (TRAMADOL HCL) 50 Mg Tablet, 50 TAB PO PRN Q6HRS, #30 TAB 0 Refills Prov:SHU MUHAMMAD MD 02/09/15 Citalopram Hydrobromide (CELEXA) 40 Mg Tablet, 40 MG PO DAILY, #30 TAB Prov:QUEENIE LOYA MD 09/26/14 Reported Medications Diltiazem Hcl (CARDIZEM CD) 360 Mg Cap.er.24h, 300 MG PO DAILY, #30 CAP 5 Refills 03/04/18 Sennosides (SENOKOT) 8.6 Mg Tablet, 1 TAB PO PRN BID, #40 TAB 03/03/18 Mirtazapine (MIRTAZAPINE) 15 Mg Tablet, 7.5 MG PO QHS, TAB 03/03/18 Magnesium Hydroxide (MILK OF MAGNESIA) 2,400 Mg/10 Ml Oral.susp, 2400 MG PO, MISC 03/03/18 Cyanocobalamin (Vitamin B-12) (CYANOCOBALAMIN INJECTION) 1,000 Mcg/1 Ml Vial, 1 ML IM QMONTH, #1 VIAL 3 Refills 03/03/18 Cyanocobalamin (Vitamin B-12) (VITAMIN B-12) 1,000 Mcg Tablet, 1 TAB PO DAILY, # 30 TAB 2 Refills 03/03/18 Mag Hydrox/Al Hydrox/Simeth (ALUM-MAG HYDROXIDE-SIMETH LIQ) 360 Ml Oral.susp, 360 ML PO, MISC 03/03/18 Albuterol Sulfate (ALBUTEROL SULFATE CONC NEB SOLN) 2.5 Mg/0.5 Ml Vial.neb, 1 VIAL NEB Q6HRS, #120 VIAL 5 Refills 03/03/18 Metoprolol Tartrate (METOPROLOL TARTRATE) 25 Mg Tablet, 1 TAB PO DAILY, #180 TAB 1 Refill 03/03/18 Melatonin (MELATONIN) 3 Mg Tablet, 1 TAB PO QHS, #30 TAB 2 Refills 03/03/18 Lidocaine (Lidocaine) 1 Each Adh..patch, 1 EACH TP, PATCH 03/03/18 Hyoscyamine Sulfate (LEVSIN) 0.125 Mg Tablet, 1 TAB PO TID PRN for GI SYMPTOMS, #90 TAB 1 Refill 03/03/18 Oxycodone/Apap 10-325 (PERCOCET 10-325 MG TABLET) 1 Each Tablet, 1 TAB PO BID PRN for PAIN, #60 TAB 03/03/18 Lubiprostone (AMITIZA) 24 Mcg Capsule, 1 CAP PO BID, #60 CAP 5 Refills 03/03/18 Acetaminophen (ACETAMINOPHEN) 500 Mg Tablet, 2 TAB PO Q6HRS, #60 TAB 03/03/18 Apixaban (ELIQUIS) 5 Mg Tablet, 5 MG PO BID, TAB 05/26/17 Gabapentin (GABAPENTIN) 300 Mg Capsule, 300 MG PO BID, CAP 05/26/17 Omeprazole (OMEPRAZOLE) 40 Mg Capsule.dr, 40 MG PO BID, CAP LAST DOSE GIVEN: DATE: today we use Pantaprozole (Protonix) TIME: 8:30 AM NEXT DOSE DUE: DATE: tomorrow morning 02/04/14 Discontinued Reported Medications Diltiazem Hcl (CARDIZEM CD) 360 Mg Cap.er.24h, 300 MG PO BID for FOR HYPERTENSION, #30 CAP 0 Refills 03/03/18 Lubiprostone (AMITIZA) 24 Mcg Capsule, 1 CAP PO BID, #60 CAP 5 Refills 03/03/18 GENEVIEVE ARVIZU III, DO Mar 09, 2018 11:44
[2018-03-09] MEDS: oxyCODONE/APAP 10/325 1 TAB TABLET PO PRN (14:04)
[2018-03-09] MEDS: ANTI-COAG MONITOR BY PHARMACY. MC PRN ×2 (14:10→15:06)
[2018-03-09 15:00] VITALS: BP 107/68
[2018-03-09] MEDS ORDERED: CEFPODOXIME PROXETIL 100 MG TABLET. PO SCH (21:00)
--- NOTE | 2018-03-13 11:50 | DS ---
DATE OF DISCHARGE: 03/09/2018 ADMISSION DIAGNOSES: Failure to thrive, leukocytosis, hyponatremia, depression, chronic obstructive pulmonary disease. DISCHARGE DIAGNOSES: Chronic failure to thrive with resolving leukocytosis and resolving electrolyte disturbance. HOSPITAL COURSE: The patient is a pleasant 67-year-old female who presented with multiple medical issues. Basically, her electrolytes were a little off. She was hyponatremic. She was very weak and depressed, had some abdominal pain. It should be noted that she still smokes despite having near end-stage COPD. She is quite depressed chronically. She was admitted. We gave her breathing treatments and oxygen and empiric antibiotics and corrected her electrolytes. It seems like her long-term prognosis is poor. We did consult palliative care. We got the patient back to her baseline and discharged to her facility with home health/palliative care. DISPOSITION: Home health/palliative care. ACTIVITY: As tolerated. DIET: Low sodium. MEDICATIONS: Please see the MRAD. TOTAL TIME: 42 minutes. GENEVIEVE ARVIZU DO DR: JULIO/miya JOB#: [id number] / [id number]
== END 2018-03-09 17:30 | disposition home health service (06) | DRG 871 ==
LOC: ER 20:08 → 4 NORTH 03-03 00:45
PROVIDERS: ADMIT Family Medicine; ATTEND Family Medicine
DX: A41.9 Sepsis, unspecified organism (principal); G93.41 Metabolic encephalopathy; J18.9 Pneumonia, unspecified organism; E87.1 Hypo-osmolality and hyponatremia; E44.1 Mild protein-calorie malnutrition; J44.0 Chronic obstructive pulmonary disease with (acute) lower respiratory infection; J96.11 Chronic respiratory failure with hypoxia; J44.1 Chronic obstructive pulmonary disease with (acute) exacerbation; I48.92 Unspecified atrial flutter; J91.8 Pleural effusion in other conditions classified elsewhere; I10 Essential (primary) hypertension; F41.9 Anxiety disorder, unspecified; G43.909 Migraine, unspecified, not intractable, without status migrainosus; M79.7 Fibromyalgia; K59.09 Other constipation; F17.210 Nicotine dependence, cigarettes, uncomplicated; F32.9 Major depressive disorder, single episode, unspecified; R62.7 Adult failure to thrive; G89.29 Other chronic pain; K58.9 Irritable bowel syndrome, unspecified; I48.91 Unspecified atrial fibrillation; E78.5 Hyperlipidemia, unspecified; I25.2 Old myocardial infarction; Z86.73 Personal history of transient ischemic attack (TIA), and cerebral infarction without residual deficits; K21.9 Gastro-esophageal reflux disease without esophagitis; M19.90 Unspecified osteoarthritis, unspecified site; I08.1 Rheumatic disorders of both mitral and tricuspid valves; B37.9 Candidiasis, unspecified; Z51.5 Encounter for palliative care; M41.9 Scoliosis, unspecified; I70.0 Atherosclerosis of aorta; Z68.22 Body mass index [BMI] 22.0-22.9, adult; Z99.81 Dependence on supplemental oxygen; Z79.891 Long term (current) use of opiate analgesic; Z90.710 Acquired absence of both cervix and uterus; Z88.0 Allergy status to penicillin; Z80.1 Family history of malignant neoplasm of trachea, bronchus and lung; Z82.49 Family history of ischemic heart disease and other diseases of the circulatory system
CPT/HCPCS: 36415; 71045; 71250; 74177; 80048; 80053; 81001; 82550; 83605; 83690; 83735; 84484; 85007; 85025; 85610; 85730; 87040; 87449; 93005; 93306; 94640; 94760; 96361; 96374; 96375; J0692; J1956; J2270; J2405; J3010; J7030; J7620; Q9966; Q9967; S0028; 97535; 99285-25